=== PATIENT | female | born 1980 | race Caucasian/White ===

== ENCOUNTER 2020-07-17 15:42 | Emergency (ER) | payer OTHER, SELFPAY ==
--- NOTE | ~2020-07-17 | CT_ITS ---
EXAMINATION: CT abdomen pelvis w con EXAM DATE: 07/17/2020 18:19 INDICATION: Abdominal pain, right lower quadrant pain. TECHNIQUE: Spiral CT of the abdomen and pelvis was performed following intravenous injection of 100 m L Omnipaque 350. Axial, coronal and sagittal images were reviewed. The dose-length product (DLP) fo r this examination was 211.66 mGy-cm. The exposure was tailored according to patient size (auto mA e xposure control), and iterative reconstruction (ASIR) was used as additional dose reduction technique . Comparison is made to prior examination from 11/04/2017 . FINDINGS: Again there is right liver lobe lesion, suspect faint peripheral nodular enhancement consis tent with hemangioma. This measures about 2 cm. The liver, spleen, adrenal glands and pancreas are o therwise unremarkable. Gallbladder is unremarkable. No biliary obstruction. Portal and splenic vei ns are patent. Kidneys enhance symmetrically. There is no hydronephrosis. The uterus and ovaries are unremarkable, no adnexal mass. The bladder is unremarkable. There is no retroperitoneal or pelv ic lymphadenopathy. Possible identification of an unremarkable appendix. No pericecal inflammation. There is mild sigmoid colonic diverticulosis. There is no adjacent inflammatory change to suggest diverticulitis. The sto mach and small bowel are unremarkable. There is expected amount of colonic stool. No free intraper itoneal gas. The heart is normal in size. There are no pericardial or pleural effusions. The lung bases are unremarkable. The bones are unremarkable. IMPRESSION: 1. No acute intra-abdominal findings. 2. Small liver lesion probably hemangioma unchanged. 3. Mild sigmoid diverticulosis. Reviewed, dictated and finalized at location A.
[2020-07-17 15:59] VITALS: BP 129/83; PULSE 77; RESP 18; TEMP 36.6; O2SAT 98
[2020-07-17 16:03] LABS: Basophils Percent Auto 0.6 % (0.2-1.2); Eosinophils Absolute Auto 0.2 K/mm3 (0-0.3); Eosinophils Percent Auto 2.4 % (0-4.4); Hematocrit 36.2 % (37.0-47.0); Hemoglobin 12.3 g/dL (12.0-15.0); Immature Granulocyte Absolute 0.02 K/mm3 (0.00-0.031); Immature Granulocyte Percent A 0.3 % (0-0.5); Lymphocytes Absolute Auto 2.36 K/mm3 (0.9-3.2); Lymphocytes Percent Auto 33.7 % (18.3-44.2); Mean Corpuscular Hemoglobin 31.4 pg (26-34); Mean Corpuscular Volume 92.3 fl (80-100); Mean Platelet Volume 8.7 fl (7.4-10.4); Monocytes Absolute Auto 0.7 K/mm3 (0.1-0.6); Monocytes Percent Auto 9.4 % (2.6-8.5); Neutrophils Absolute Auto 3.8 K/mm3 (1.3-6.7); Neutrophils Percent Auto 53.6 % (45.5-73.1); Platelet Count Result 264 k/mm3 (150-375); Red Blood Count 3.92 M/mm3 (4.2-5.4); Red Cell Distribution Width 11.7 % (11.5-14.5)
[2020-07-17 16:07] LABS: Add Urine Microscopic? YES; Appearance Urine Clear (Clear); Bacteria Urine Trace /hpf; Bilirubin Urine Negative (Negative); Blood Urine Negative (Negative); Color Urine Yellow (Yellow); Glucose Urine UA Negative (Negative); Ketones Urine Negative (Negative); Leukocyte Esterase Ur Negative LEU/UL (Negative); Mucus Urine Rare /lpf; Nitrate Urine Negative (Negative); Protein Urine Negative (Negative); Specific Grav Ur 1.021 (1.001-1.035); Squamous Epithelial Cell Urine Rare /hpf (Few); Urobilinogen Urine Negative mg/dL (<2.0); WBC Urine 0-3 /hpf
[2020-07-17 16:15] LABS: Alanine Aminotransferase 15 U/L (4-35); Albumin Level 4.5 g/dL (3.5-5.1); Alkaline Phosphatase 41 U/L (38-126); Anion Gap 7 mmol/L (8-16); Aspartate Amino Transferase 25 U/L (14-36); Bilirubin,Total 0.6 mg/dL (0.2-1.3); Blood Urea Nitrogen 18 mg/dL (7-17); Calcium 9.1 mg/dL (8.4-10.2); Carbon Dioxide 27 mmol/L (22-30); Chloride 104 mmol/L (98-107); Estimated CRCL calculation 95 ml/min; Estimated Glomerular Filt Rate > 60; Glucose 90 mg/dL (65-105); Lipase 133 U/L (23-300); Potassium 3.9 mmol/L (3.4-5.0); Sodium 138 mmol/L (137-145)
[2020-07-17 17:41] VITALS: BP 121/85; PULSE 78; RESP 18; O2SAT 99
--- NOTE | 2020-07-17 18:02 | ED.GENADULT ---
HPI - General Adult General Chief complaint: Abdominal Pain Stated complaint: abd pain Time Seen by Provider: 07/17/20 15:57 Source: patient Mode of arrival: ambulatory Limitations: no limitations History of Present Illness HPI narrative: Patient presents for evaluation of abdominal pain for the last week and a half. States that pain was initially intermittent but is now fairly constant. It has been variable in location. She describes the pain is a dull cramping sensation with associated burning. At maximum pain has been 8 out of 10 in severity. Currently she states her pain is 5 out of 10 in severity. She had some mild nausea without vomiting. No fever or chills. States she has a history of regular menstruation. LMP started 7 days ago and ended 4 days ago. She denies any vaginal bleeding or discharge. She saw her OBGYN who ordered transvaginal ultrasound. She states this showed interval improvement in left sided ovarian cyst. She had some cysts present in her uterus. She states frequency with which she is having bowel movements is unchanged, with one bowel movement every 24 hrs in the morning still present. However, she indicates her stool has been softer than normal. She reports increased stress related to her 15 yr old son recently taken to rehab for substance abuse. Pt has 1-2 glasses of wine in the evenings, five times per week. No illicit drug use. She does not smoke. No personal or family hx of IBS or IBD. She is sexually active with one male partner, not on contraception. G5, P3, she does not believe she is . Related Data Home Medications Medication Instructions Recorded Confirmed No Home Medications 07/17/20 07/17/20 Allergies Allergy/AdvReac Type Severity Reaction Status Date / Time butorphanol Allergy Mild Nausea and Unverified 07/17/20 16:02 Vomiting Review of Systems Review of Systems: Narrative: CONSTITUTIONAL: Denies fever, chills, or sweats. EYES: Denies visual changes, redness, or discharge. ENT: Denies rhinorrhea, congestion, sore throat, or otalgia. CARDIOVASCULAR: Denies chest pain, palpitations, or edema. RESPIRATORY: Denies cough or dyspnea. GASTROINTESTINAL: Reports abdominal pain and nausea. Denies vomiting and diarrhea. GENITOURINARY: Denies dysuria or hematuria. SKIN: Denies rash or itching. MUSCULOSKELETAL: Denies back pain, joint pain, or myalgia. NEUROLOGIC: Denies headache, numbness, dizziness, or weakness. PSYCHIATRIC: Denies anxiety or depression. [facility] Past Medical History Medical History (Updated 07/17/20 @ 19:37 by AKBAR WheatP, ) Anxiety Surgical History Surgical History No pertinent past surgical history Family History Family History Mother Breast cancer Social History Social History Smoking status: Never smoker Alcohol intake: current Drinks per week: 8 Substance use: never Living arrangements: with family Gender identity (if verbalized by the patient): Female Sexual Orientation (if Verbalized by the Patient): Straight or Heterosexual Spiritual care concerns: No Exam Narrative: Exam Narrative: GENERAL: Well-appearing, well-nourished, and in no acute distress. HEAD: Normocephalic, atraumatic. EYES: PERRLA and EOMI. ENT: Nares clear, no rhinorrhea or epistaxis. Mucous membranes moist. Oropharynx without tonsillar hypertrophy exudate or other lesions. Bilateral TMs pearly sanchez nonbulging NECK: Supple. No adenopathy or masses. No carotid bruits or JVD CHEST: Clear to auscultation. No respiratory distress. No wheezes rales or rhonchi HEART: Regular rate and rhythm. No murmur heard. Normal peripheral pulses. ABDOMEN: Soft, nondistended, normal active bowel sounds. Tenderness noted in RUQ, RLQ, epigastric and suprapubic regions SKIN: Wa
[2020-07-17 19:14] VITALS: BP 127/80; O2SAT 98
[2020-07-17 19:15] VITALS: BP 116/81; O2SAT 98
[2020-07-17 19:16] VITALS: O2SAT 97
[2020-07-17 19:30] VITALS: O2SAT 98
== END 2020-07-17 20:24 | disposition home or self-care (01) ==
PROVIDERS: Emergency Medicine; Emergency Provider Nurse Practitioner; PCP Family Medicine
DX: K57.90 Diverticulosis of intestine, part unspecified, without perforation or abscess without bleeding (principal); K76.9 Liver disease, unspecified; F43.9 Reaction to severe stress, unspecified; R10.84 Generalized abdominal pain
CPT/HCPCS: 36415; 74177; 80053; 81001; 81025; 83690; 85025; 99284; Q9967

== ENCOUNTER → 2020-10-02 00:20 | Outpatient (CLI) | payer OTHER, SELFPAY ==
[2020-10-02 17:56] LABS: SARS-CoV-2 RNA PCR Negative
== END ==
PROVIDERS: PCP Family Medicine; Visit Provider Obstetrics & Gynecology
DX: Z01.812 Encounter for preprocedural laboratory examination (principal); Z20.822 Contact with and (suspected) exposure to COVID-19
CPT/HCPCS: C9803; U0003; U0005

== ENCOUNTER 2020-10-05 01:54 | Day surgery (SDC) | payer OTHER, SELFPAY ==
[2020-09-22 11:33] VITALS: BMI 20.7
[2020-10-05 07:05] VITALS: BP 104/74; PULSE 70; RESP 18; TEMP 36.1; O2SAT 100
--- NOTE | 2020-10-05 07:56 | P.PNAN_ITS ---
Anes - Initial Pre Proc Eval Procedure: Operation Date: 10/05/20 09:00 Proposed Procedures p Hysteroscopy Dilation and Curettage - Betina Mattson MD Date/Time: 10/05/20 07:56 Surgeon: Betina Mattson MD Pre Op Diagnosis: lesion of endometrium Patient Data Age: 40 Gender: F Height: 1.65 m Weight: 56.7 kg Allergies Allergy/AdvReac Type Severity Reaction Status Date / Time butorphanol Allergy Mild Nausea and Unverified 09/22/20 11:31 Vomiting Home Medications Medication Instructions Recorded Confirmed Type multivitamin 1 tablet PO DAILY 09/22/20 09/22/20 History valacyclovir 2,000 mg PO BID 09/22/20 09/22/20 History Patient hx anesthesia problems: none Family hx anesthesia problems: none [facility] Past Medical History Medical History (Updated 10/04/20 @ 09:38 by Derick Ramos DO) Anxiety Asthma exercise induced Surgical History Surgical History (Updated 10/04/20 @ 09:38 by Derick Ramos DO) History of breast augmentation Family History Family History Mother Breast cancer Social History Social History (Updated 10/05/20 @ 07:56 by Derick Ramos DO) Smoking packs per day: 0.5 Smoking cigarettes per day: 10.0 Years smoked: 10 Smoking pack-years: 5.00 Smoking status: Former smoker Smoking end date: 04/23/06 Alcohol intake: current Alcohol use details: 2 drinks/day Substance use: never Substance use type: does not use Living arrangements: with family Additional living arrangements comments: CHILDREN Gender identity (if verbalized by the patient): Female Spiritual care concerns: No Anes - Eval Final PreProcedure Day of Procedure 10/05/20 07:56 Patient weight: normal Heart: regular rate and rhythm Lungs: clear to auscultation and normal air movement Airway: Mallampati scale class II Neurological: alert and oriented Last oral intake: >/= 8 hours ASA classification: III Emergent: no Anesthetic plan: proceed Anesthesia type and monitoring: general GIVS and standard monitoring Informed Consent: The patient's anesthetic plan and its attendant risks and benefits were discussed with the patient/family/POA. Questions were solicited and answers provided to the satisfaction of the patient/family/POA.
--- NOTE | 2020-10-05 08:08 | WPDHPUPDATE1 ---
History and Physical Update Update Date/Time: 10/05/20 08:08 History and Physical has been reviewed, including an updated exam of the patient. There are NO changes in the patient's condition. Risks, benefits, and alternatives have been discussed and questions answered. Patient agrees to proceed with procedure.
[2020-10-05] MEDS: LACTATED RINGERS 1,000 ML 30 ML IV CONT (08:50)
[2020-10-05] MEDS: ACETAMINOPHEN 500 MG TABLET 1000 MG PO (08:56)
[2020-10-05 10:19] VITALS: BP 110/86; PULSE 73; RESP 16; O2SAT 100
--- NOTE | 2020-10-05 10:32 | W.PM.PROC2 ---
Procedure Note - Detailed Date of Procedure 10/05/20 Pre-op Diagnosis lesion of endometrium Post-op Diagnosis same Procedure Performed Hysteroscopy D&C with polypectomy Surgeon Betina Mattson MD Anesthesia MAC Indications Endometrial lesion Findings Redundant endometrium with polypoid tissue projecting from the posterior uterine wall distally. Normal vulva, vagina cervix. Description of Procedure The patient was taken the operating room. She was prepped and draped in dorsal lithotomy position. Speculum was placed in vagina. Cervix grasped with a tenaculum. The cervix was dilated to about 1 cm. Hysteroscope was inserted and the above findings were noted. A D&C was performed using a medium-size curette and gently curettage being all the surfaces within the uterus. The hysteroscope was reinserted. Scissors were used to resect the polypoid tissue on the posterior uterine wall distally. Samples were collected. Samples were sent to the pathology department. The procedure was terminated. The speculum and tenaculum were withdrawn. The patient tolerated the procedure well. She is taking cover room stable condition. Estimated Blood Loss 15 Drains No Packing No Pathology yes Complications No immediate complications Condition stable Disposition same day
[2020-10-05 10:45] VITALS: BP 115/70; PULSE 57; RESP 16; O2SAT 100
[2020-10-05 11:05] VITALS: BP 115/70; PULSE 54; RESP 16
[2020-10-05 11:15] VITALS: BP 104/68; PULSE 60; RESP 16
== END 2020-10-05 11:25 | disposition home or self-care (01) ==
PROVIDERS: PCP Family Medicine; Visit Provider Obstetrics & Gynecology
PROC: 0U5B8ZZ Destruction of Endometrium, Via Natural or Artificial Opening Endoscopic (ICD-10-PCS; CPT 58563; principal; 2020-10-05 09:00)
DX: N84.0 Polyp of corpus uteri (principal); Z87.891 Personal history of nicotine dependence
CPT/HCPCS: 58558; 88305; A9270; C9803; J2250; J2704; J3010; J7030; J7120; U0003; U0005

== ENCOUNTER 2022-12-23 08:59 | Emergency (ER) | payer OTHER, SELFPAY ==
--- NOTE | 2022-12-23 09:10 | ED.URI ---
HPI - URI/Sore Throat General Chief Complaint: Upper Respiratory Infection Stated Complaint: SORE THROAT Time Seen by Provider: 12/23/22 09:36 Source: patient and RN notes reviewed Mode of arrival: ambulatory Limitations: no limitations History of Present Illness HPI Narrative: 42-year-old female presents with concern for sore throat that started yesterday. She reports she has some mild nasal congestion. She was not sure she had allergies or was contagious. She reports she took some zinc. She denies fever, aches, chills, sweats, headache, cough. She denies known sick contacts MD elicited complaint: sore throat Related Data Home Medications Medication Instructions Recorded Confirmed multivitamin 1 tablet PO DAILY 09/22/20 12/23/22 alprazolam 0.25 mg tablet 0.25 mg PO DIRECTED 12/23/22 12/23/22 Allergies Allergy/AdvReac Type Severity Reaction Status Date / Time butorphanol AdvReac Mild Nausea and Unverified 12/23/22 09:23 Vomiting Review of Systems Review of Systems: CONSTITUTIONAL: Denies malaise, chills, sweats, or fever. EYES: Denies visual changes, redness, or discharge. ENT: Reports rhinorrhea, congestion, sore throat. Denies sinus pain, otalgia CARDIOVASCULAR: Denies chest pain, palpitations, or edema. RESPIRATORY: Denies cough. Denies dyspnea. GASTROINTESTINAL: Denies abdominal pain, nausea, vomiting, diarrhea SKIN: Denies rash or itching. MUSCULOSKELETAL: Denies myalgia. NEUROLOGIC: Denies headache. All systems reviewed & are unremarkable except as noted in HPI and below PMFSH Past Medical History Medical History (Updated 12/23/22 @ 09:44 by Vandana Mace NP) Anxiety Asthma exercise induced Surgical History Surgical History (Updated 10/04/20 @ 09:38 by Derick Ramos DO) History of breast augmentation Family History Family History Mother Breast cancer Social History Social History (Updated 10/05/20 @ 07:56 by Derick Ramos DO) Smoking packs per day: 0.5 Smoking cigarettes per day: 10.0 Years smoked: 10 Smoking pack-years: 5.00 Smoking status: Former smoker Smoking end date: 04/23/06 Alcohol intake: current Alcohol use details: 2 drinks/day Substance use: never Substance use type: does not use Living arrangements: with family Additional living arrangements comments: CHILDREN Gender identity (if verbalized by the patient): Female Sexual Orientation (if Verbalized by the Patient): Straight or Heterosexual Spiritual care concerns: No Comments At time of signature, agree with nursing past medical, surgical, social and family history. There is no relevant family history pertinent to the presenting complaint Exam Narrative: GENERAL: Well-appearing, well-nourished, and in no acute distress. HEAD: Normocephalic EYES: PERRLA, conjunctivae clear ENT: Nares clear. Mucous membranes moist. TM pearly sanchez with sharp light reflex bilaterally; no tragal tenderness. Oropharynx not erythematous without lesions. Tonsils not enlarged and without exudate, no drooling, no hoarseness, no trismus, uvula midline. NECK: Supple. No lymphadenopathy CHEST: Clear to auscultation, breath sounds equal. No wheezing, rhonchi, rales, or stridor. No respiratory distress, speaks in full sentences. HEART: Regular rate and rhythm. No murmur heard. SKIN: Warm, dry, no rash. NEURO: Alert and oriented x3. PSYCH: Normal mood and affect Course Course Emergency Course: Patient is aware of diagnosis, understands and agrees to treatment plan. Anticipatory guidance given. Patient agrees to follow-up as directed and is aware of reasons to seek care at the emergency department. Portions of this record may have been created with voice recognition software Level of Care: Express Care Visit Vital Signs Vital signs: Reviewed. MDM - URI/Sore Throat MDM Narrative Medical decision making narrati
[2022-12-23 09:13] VITALS: BP 117/84; PULSE 78; RESP 16; TEMP 36.3; O2SAT 100
== END 2022-12-23 09:46 | disposition home or self-care (01) ==
PROVIDERS: Emergency Provider Nurse Practitioner; PCP Family Medicine
DX: J01.90 Acute sinusitis, unspecified (principal); Z87.891 Personal history of nicotine dependence; F41.9 Anxiety disorder, unspecified; J45.990 Exercise induced bronchospasm
CPT/HCPCS: 87081; 87880; 99213; G0463

== ENCOUNTER 2024-04-06 12:57 | Emergency (ER) | payer OTHER, SELFPAY ==
[2024-04-06 13:40] VITALS: BP 126/86; PULSE 76; RESP 16; TEMP 36.6; O2SAT 100
--- NOTE | 2024-04-06 14:16 | ED.URI ---
HPI - URI/Sore Throat General Chief Complaint: Upper Respiratory Infection Stated Complaint: SINUS PRESSURE/HEAD/EARS Time Seen by Provider: 04/06/24 14:04 Source: patient and RN notes reviewed Mode of arrival: ambulatory Limitations: no limitations History of Present Illness HPI Narrative: Patient presents today with a 3 day history of nasal congestion, sinus pressure, bilateral ear pressure, and mild dry cough. Denies fever or shortness of breath. She has tried ibuprofen and Tylenol cold and flu without much relief. She is currently living in a hotel while her home is being built and states the areas very dry Related Data Home Medications ?Medication ?Instructions ?Recorded ?Confirmed ?Last Taken ?Type multivitamin 1 tablet PO DAILY 09/22/20 12/23/22 10/01/20 History alprazolam 0.25 mg tablet 0.25 mg PO DIRECTED 12/23/22 12/23/22 Unknown History Allergies Allergy/AdvReac Type Severity Reaction Status Date / Time butorphanol AdvReac Mild Nausea and Verified 04/06/24 13:40 Vomiting Review of Systems Review of Systems: CONSTITUTIONAL: Denies body aches, fever, chills, or sweats. EYES: Denies visual changes, redness, or discharge. ENT: Denies rhinorrhea, sore throat, or otalgia.+ nasal congestion, sinus pressure, bilateral ear pressure CARDIOVASCULAR: Denies chest pain, palpitations, or edema. RESPIRATORY: Denies dyspnea.+ dry cough GASTROINTESTINAL: Denies abdominal pain, nausea, vomiting, or diarrhea. GENITOURINARY: Denies dysuria or hematuria. SKIN: Denies rash, itching, or wounds. MUSCULOSKELETAL: Denies back pain, joint pain, or myalgia. NEUROLOGIC: Denies headache, numbness, tingling, or weakness. PSYCH: Denies depression or anxiety. [facility] Past Medical History Medical History Asthma exercise induced Anxiety Surgical History Surgical History History of breast augmentation Family History Family History Mother Breast cancer Social History Social History Smoking packs per day: 0.5 Smoking cigarettes per day: 10.0 Years smoked: 10 Smoking pack-years: 5.00 Smoking status: Former smoker Smoking end date: 04/23/06 Alcohol intake: current Alcohol use details: 2 drinks/day Substance use: never Substance use type: does not use Living arrangements: with family Additional living arrangements comments: CHILDREN Gender identity (if verbalized by the patient): Female Sexual Orientation (if Verbalized by the Patient): Straight or Heterosexual Spiritual care concerns: No Comments At time of signature, I have reviewed and agree with nursing past medical, surgical, social and family history unless otherwise noted. Please see nursing chart for further information. There is no relevant family history pertinent to the presenting complaint Exam Narrative: GENERAL: Well-appearing, well-nourished, and in no acute distress. HEAD: Normocephalic, atraumatic. EYES: EOMI. No redness or drainage. Conjunctivae normal. ENT: Mucous membranes pink and moist. Nares mildly congested. Bilateral nasal turbinates are slightly edematous. No rhinorrhea. TMs normal bilaterally with mild left-sided middle ear effusion without evidence of bacterial infection. Throat normal. Uvula midline. Bilateral maxillary sinus tenderness. NECK: Normal AROM. Supple. No lymphadenopathy. CHEST: No respiratory distress. Clear to auscultation. HEART: Regular rate and rhythm. No murmur appreciated. EXTREMITIES: Normal range of motion. No edema. SKIN: Warm, dry, no rash. Capillary refill normal. Normal skin turgor. NEURO: No focal deficits. Alert and oriented x3. Gait steady. PSYCH: Normal affect. No signs of depression or anxiety. Course Course Level of Care: Express Care Visit Vital Signs Vital signs: Vital Signs Temperature 98 F 04/06/24 13:40 Pulse Rate 76 04/06/24 13:40 Respiratory Rate 16 04/06/24 13:40 Blood Pressure 126/86 04/06/24 13:40 Pulse Oximetry 100 04/06/24 13:40 Temperature 98 F 04/06/24 13:40 Pulse Rate 76 04/06/24 13:40 Respiratory Rate 16 04/06/24 13:40 Blood Pressure 126/86 04/06/24 13:40 Pulse Oximetry 100 04/06/24 13:40 Reviewed MDM - URI/Sore Throat MDM Narrative Medical decision making narrative: Symptoms likely viral in etiology. Discussed [id number] medication use and duration of illness. Will treat patient's sinus pressure and dry cough with a Medrol Dosepak. Recommend switching to Sudafed and starting Flonase as well.. Anticipatory guidance given. Differential Diagnosis Differential diagnosis: Likely upper respiratory infection, otitis media, sinusitis, viral infection and bronchitis Critical Care Time Critical Care Time Critical Care Time: No Discharge Plan Discharge Clinical Impression: Upper respiratory infection Qualifiers: URI type: unspecified URI Qualified Code(s): J06.9 - Acute upper respiratory infection, unspecified Patient Disposition: Home, Self-Care Condition: Stable Instructions: Upper Respiratory Infection (DC) Additional Instructions: Your symptoms are likely due to a viral illness, which is not treated with antibiotics. Virus symptoms can last for up to 7-10days. Take Tylenol or ibuprofen for pain or fever. Consider starting a steroid nasal spray such as Flonase and changing to a decongestant such as Sudafed (pseudoephedrine). Take the Medrol Dosepak as directed. Rest and stay hydrated. Follow up with your PCP in 7 days if symptoms are not improving. Go to the ER immediately if you develop shortness of breath, difficulty swallowing, or any other concerning symptoms. Your blood pressure was elevated above 120/80 today at Urgent Care. This puts you above the threshold for follow up. Please schedule a followup visit with your personal physician as soon as possible, for further evaluation and treatment. Even blood pressure exceeding 120/80 may indicate pre-hypertension. Patient Language: Mongolian Prescriptions: New methylprednisolone [Medrol (Des)] 4 mg tablets,dose pack See Rx Instructions .ROUTE .COMPLEX Qty: 21 0RF Rx Instructions: orally per package directions No Action alprazolam 0.25 mg tablet 0.25 mg PO DIRECTED multivitamin Tablet 1 tablet PO DAILY Follow-up/Referrals: UNKNOWN,DOCTOR [Primary Care Provider] - Time of Disposition: 14:20
== END 2024-04-06 14:21 | disposition home or self-care (01) ==
PROVIDERS: Emergency Provider Nurse Practitioner
DX: J06.9 Acute upper respiratory infection, unspecified (principal); Z87.891 Personal history of nicotine dependence; J45.990 Exercise induced bronchospasm; F41.9 Anxiety disorder, unspecified
CPT/HCPCS: 99213; G0463

== ENCOUNTER 2024-08-19 00:58 | Day surgery (SDC) | payer OTHER, SELFPAY ==
[2024-08-08 14:24] VITALS: BMI 21.2
--- NOTE | 2024-08-08 14:38 | PC.NURSE ---
Report to the Outpatient Waiting Room, entrance under the green pavilion located off [facility], at time ___07____ on date ___08/19/24____. Planned Procedure Time: ____09____.? Time changes happen often and if your time is changed the preop area will call you the afternoon before. - You and your visitor will be asked to self-screen and do not enter if you have any COVID symptoms. Please call surgeon if you need to reschedule. - A mask is optional within the hospital at this time. Patients may have clear liquids (water, carbonated beverages, clear teas, apple juice) until 3 hours prior to surgery with a maximum of 20 ounces. - No food from midnight until time of surgery and no smoking, or chewing tobacco (or any form of nicotine). No chewing gum, candy or mints. Take only the following medications with a SIP of water on the morning of surgery: ____clonazepam if needed___ DO NOT STOP ANY OF YOUR OTHER PRESCRIPTION MEDICATIONS PRIOR TO SURGERY EXCEPT THE FOLLOWING Hold all vitamins and supplements for 3 days per anesthesiologist. Please no make-up, nail taiwanese, hairspray, perfume, deodorant, or body powder the day of surgery.? No jewelry (including any body piercings) or valuables the day of surgery, leave them at home.? Please take a shower or bath the night before, or the morning of, surgery with an antibacterial soap.? Wear comfortable, loose fitting clothing.? - Jewelry must be removed prior to entering the operating room.? Rings and piercings that are not removed may be cut off. - The hospital will not accept responsibility for valuables.? - Please leave all valuables, including medications, at home the day of surgery. If you are going home after surgery, a licensed certified driver examiner must drive you home.? - NO public transportation without another adult if you receive anesthesia. - We recommend that an adult stay with you for 24 hours following discharge. - We also recommend that you do not drive, make important decision, drink alcoholic beverages, or take any drugs that were not prescribed by your health care provider for at least 24 hours after your discharge time. Follow any additional instructions given to you from your surgeon. Telephone instructions given to ____Holly and asked if any additional questions and then verbalized understanding. Patient advised to call surgeon office or pre surgery nurse liaison [phone] if any additional questions.
--- OUTSIDE RECORDS SUMMARY | 2024-08-19 01:00 | XMS_ITS | Clinical Summary ---
Author Organization [facility] Address [address] [place] [address] Phone Care Team Providers Care Datastage Architect Name Role Phone Joe Manning MD Primary Care Provider Medications No known medications Active Problems No known active problems Immunizations Immunization Administration Dates Next Due ([employer])(12 YR UP) COVID-19 VACCINE - EMERGENCY USE AUTHORIZATION, MRNA, [id number](PF) 30 MCG/0.3 ML IM SUSP 06/10/2020,05/21/2020 Social History Tobacco Use Types Packs/Day Years Used Date Smoking Tobacco: Unknown Tobacco Cessation:Counseling Given: Not Answered Comments Unknown Sex and Gender Information Value Date Recorded Sex Assigned at Not on file Legal Sex Female 2:10 PM CDT Gender Identity Not on file Sexual Orientation Not on file Last Filed Vital Signs Vital Sign Reading Time Taken Comments Blood Pressure 135/84 09/01/2022 1:33 PM CDT Pulse 76 09/01/2022 1:33 PM CDT Temperature 36.3 C (97.3 F) 09/01/2022 1:33 PM CDT Respiratory Rate 17 09/01/2022 1:33 PM CDT Oxygen Saturation 99% 09/01/2022 1:33 PM CDT Inhaled Oxygen Concentration - - Weight 58.5 kg (128 lb 15.5 oz) 09/01/2022 1:33 PM CDT Height 165.1 cm (5' 5 ) 09/01/2022 1:33 PM CDT Body Mass Index 21.46 09/01/2022 1:33 PM CDT Plan of Treatment Health Maintenance Due Date Last Done Comments HEPATITIS B VACCINES (1 of 3 - 19+ 3-dose series) 1999 HPV/Cotest (21-29) 2001 HPV/Cotest (30-65) 2010 BREAST CANCER SCREENING 2020 DTAP/TDAP/TD VACCINES (2 - Tdap) 03/27/2022 03/27/2012 INFLUENZA VACCINE (#1) 2023 02/19/2020 COVID-19 Vaccine (3 - season) 2023 06/10/2020, 05/21/2020 CERVICAL CANCER SCREENING 08/25/2024 PAP SMEAR 08/25/2024 08/25/2021 HPV VACCINES Aged Out No longer eligi ble based on patient's age to complete this topic Insurance [facility] [id number] Member Subscriber Plan / Payer (Ef fective 2020-Present) Name:Kia Moya Relation to Subscriber:Not on file Name:KIA MOYA Date of :1980 (Home) Address: [address] [place] [address] [address] [place] [address] Payer ID:[id number] (NAIC) Type:[facility] Address: [address] [place] [address] [facility] CHOICE PLUS Care Teams Datastage Architect Relationship Specialty Start Date End Date Joe Manning MD PCP - General Family Practice 04/24/19
--- OUTSIDE RECORDS SUMMARY | 2024-08-19 01:00 | XMS_ITS | Clinical Summary ---
Author Organization [facility] Campaign [facility] Address [address] [place] [address] Care Team Providers Care Stripper Latex Name Role Phone Katharine Matos NP Primary Care Provider [phone] Allergies Active Allergy Reactions Criticality Noted Date Comments Lanolin Alcohols Redness Low 06/18/2019 Medications valACYclovir (VALTREX) 500 mg tablet Take 2 tablets Twice daily at onset of outbreak 30 tablet 3 08/31/2023 Active clonazePAM (KlonoPIN) 0.5 mg tablet Take 1 tablet (0.5 mg total) by mouth 2 (two) times a day as needed for anxiety 60 tablet 03/04/2024 Active Active Problems Problem Noted Date Diagnosed Date Varicosities of pelvis 08/31/2023 Panic attacks 08/31/2023 Assessment & Plan (03/04/2024 9:42 AM VIAL GAUGER): Patient's son about 6 months ago, she has been overall been stable with her panic attacks but does not have rescue medication. She never picked up Lorazepam from previous provider. Will rx Clonazepam for rescue, discussed sparing use and daily medication. Pt declines daily medication at this time. Encouraged counseling. Assessment & Plan (08/31/2023 11:32 AM CDT): Patient does not wish to be on daily medication. Uses exercises and meditation. She believes anxiety is high right now due to work and family situations. I told her I do not usually prescribe xanax as a general rule. Discussed using lorazepam instead and she was agreeable. If she is not finding relief with prn use of lorazepam I told her she could call and I would reconsider changing to alprazolam. Abnormal finding on mammography 10/17/2022 Assessment & Plan (08/31/2023 11:35 AM CDT): Due in October. Ordered Multiple benign melanocytic nevi 06/20/2016 Vascular disorder of kidney 08/30/2015 Uses intrauterine device for control 04/28 Resolved Problems Problem Noted Date Diagnosed Date Resolved Date Facial aging 04/25/2019 08/31/2023 Skin neoplasm 06/20/2016 08/31/2023 Immunizations Immunization Administration Dates Next Due DTaP 03/27/2012 Hep A, Adult 09/26/2006,10/26/1999 Influenza, Quadrivalent, Spl it, Preservative Free, Intramuscular 02/19/2020 Influenza, Unspecified 04/23/2023(Deferr ed: Patient Refused),04/23/2022(Deferred: Patient Refused) Surgical History Surgery Date Site/Laterality Comments 2ND ORD VENOUS BILATERAL 09/02/2015 Bilateral 2ND ORD VENOUS BILATERAL 09/02/2015 Bilateral Medical History Medical History Date Comments Anxiety Shingles face and back Family History Medical History Relation Name Comments Hypertension Father Breast cancer Mother Relation Name Status Comments Father Alive Mother Social History Tobacco Use Types Packs/Day Years Used Date Smoking Tobacco: Every Day Cigarettes Smokeless Tobacco: Never Tobacco Cessation:Ready to Q uit: Not Asked; Counseling Given: Not Answered PHQ-2 Answer Date Recorded PHQ-2 Total Score (If total score is 3 or more points, staff should administer the PHQ-9) 2 03/04/2024 Comments Unknown Sex and Gender Information Value Date Recorded Sex Assigned at Not on file Legal Sex Female 7:05 AM VIAL GAUGER Gender Identity Not on file Sexual Orientation Not on file Obstetrics History Last Filed Vital Signs Vital Sign Reading Time Taken Comments Blood Pressure 110/70 03/04/2024 8:27 AM VIAL GAUGER Pulse 84 03/04/2024 8:27 AM VIAL GAUGER Temperature 36.8 C (98.2 F) 03/04/2024 8:27 AM VIAL GAUGER Respiratory Rate - - Oxygen Saturation 98% 03/04/2024 8:27 AM VIAL GAUGER Inhaled Oxygen Concentration - - Weight 59.9 kg (132 lb) 03/04/2024 8:27 AM VIAL GAUGER Height 165.1 cm (5' 5 ) 03/04/2024 8:27 AM VIAL GAUGER Body Mass Index 21.97 03/04/2024 8:27 AM VIAL GAUGER Plan of Treatment Health Maintenance Due Date Last Done Comments Cervical Cancer Screening 1980 Hepatitis C Screening 1980 Varicella Vaccines (1 of 2 - 13+ 2-dose series) 1993 Hepatitis B Screening 1998 Regular Well Visit/Exam 18-64 1998 Pneumococcal vaccine <65 (1 of 2 - PCV) 1999 DTaP/Tdap/Td Vaccine (2 - Tdap) 03/27/2022 03/27/2012 Covid-19 Vaccine (3 - season) 2023 06/10/2020, 05/21/2020 Influenza Vaccine (#1) 2023 02/19/2020 Breast Cancer Screening-Mammogram 12/18/2024 12/19/2023, 10/13/2022, 10/13/2022, Additional history exists Depression Screening 03/04/2025 03/04/2024, 08/31/19 24 HPV Vaccines Aged Out No longer eligi ble based on patient's age to complete this topic Procedures Procedure Name Priority Date/Time Associated Diagnosis Comments DIAGNOSTIC MAMMOGRAM BILATERAL W NARESH W IMPLANTS Schedule Routine, Read Routine (OP Routine) 12/19/2023 1:15 PM CDT Abnormal finding on mammography from Last 3 Months or Most Recently Relevant to Health Maintenance Results * Diagnostic Mammogram Bilateral W Naresh W Implants (12/19/2023 1:15 PM CDT) Anatomical Region Laterality Modality Breast Bilateral Mammography 12/19/2023 1:36 PM CDT Impressions 12/19/2023 1:36 PM CDT BI-RADS code 2-benign 1. No mammographic evidence of malignancy 2. Stable island of fibrocystic tissue and prominent ducts left breast 11:00 at 6 cm from the nipple Electronically signed by: Zoie Kenney M.D. Narrative 12/19/2023 1:36 PM CDT EXAM: Bilateral 3-D tomosynthesis diagnostic mammogram, limited left breast ultrasound HISTORY: Six-month follow-up prominent ducts in the left breast. Annual mammogram COMPARISON: Left breast ultrasound 06/19/2023, 11/13/2022, prior mammograms FINDINGS: Bilateral full 2-D implant views and bilateral 3-D implant displacement views were performed. Limited left breast ultrasound was performed. The breasts are extremely dense, which lowers the sensitivity of mammography. Bilateral subglandular saline implants are intact. Nodular densities in the medial left breast are stable. Right breast is negative and stable. Sonography of the left breast 11:00 at 6 cm from the nipple shows a stable island of fibrocystic tissue and prominent ducts. There is no new mass or sonographic evidence of malignancy. Given the more than one year stability of the benign finding no further evaluation is required at this time. Annual screening mammography is recommended. These results were conveyed to the patient at the time of the study. Katt Chan NP IMG MAMMO PROCEDURES Final Re sult from Last 3 Months or Most Recently Relevant to Health Maintenance Insurance [address] [place] [id number] [facility] [id number] [place] [address] CHOICE PLUS [facility] CHOICE PLUS [facility] [id number] Care Teams Stripper Latex Relationship Specialty Start Date End Date Katharine Matos NP [address] [address] PCP - General Family Medicine 03/04/24
--- OUTSIDE RECORDS SUMMARY | 2024-08-19 01:00 | XMS_ITS | Referral Summary ---
Author Organization [facility] Address [address] [place] [address] Care Team Providers Care Locomotive Crane Engineer Name Role Phone Katharine Matos NP Primary Care Provider [phone] Allergies Active Allergy Reactions Criticality Noted Date [...] 08/31/2023 Assessment & Plan (03/04/2024 9:42 AM BEHAVIOUR SUPPORT TEACHER): Patient's son about 6 months ago, she [...] Unspecified 04/23/2023(Deferr ed: Patient Refused),04/23/2022(Deferred: Patient Refused) Social History Tobacco Use Types Packs/Day Years [...] on file Legal Sex Female 7:05 AM BEHAVIOUR SUPPORT TEACHER Gender Identity Not on file Sexual Orientation Not on file Last Filed Vital Signs Vital Sign Reading Time Taken Comments Blood Pressure 110/70 03/04/2024 8:27 AM BEHAVIOUR SUPPORT TEACHER Pulse 84 03/04/2024 8:27 AM BEHAVIOUR SUPPORT TEACHER Temperature 36.8 C (98.2 F) 03/04/2024 8:27 AM BEHAVIOUR SUPPORT TEACHER Respiratory Rate - - Oxygen Saturation 98% 03/04/2024 8:27 AM BEHAVIOUR SUPPORT TEACHER Inhaled Oxygen Concentration - - Weight 59.9 kg (132 lb) 03/04/2024 8:27 AM BEHAVIOUR SUPPORT TEACHER Height 165.1 cm (5' 5 ) 03/04/2024 8:27 AM BEHAVIOUR SUPPORT TEACHER Body Mass Index 21.97 03/04/2024 8:27 AM BEHAVIOUR SUPPORT TEACHER Plan of Treatment Not on file Procedures Procedure Name Priority Date/Time Associated Diagnosis [...] Relevant to Health Maintenance Insurance [address], [place] [id number] [employer] SIG [id number] [place] [address] [facility] [place] [address] [place] [address] [facility] Address: [address] [address] [place] [address] [place] [address] [employer] SIG [id number] Care Teams Locomotive Crane Engineer Relationship Specialty Start Date End Date Katharine Matos NP [address] [facility] [address] [place] [address] PCP - General Family Medicine 03/04/24
--- OUTSIDE RECORDS SUMMARY | 2024-08-19 01:01 | XMS_ITS | Data Portability ---
Author Organization [facility] [employer], Main Office Address [address] [place] [address] Assessment No assessment recorded. Plan of Treatment Reminders Order Date Submit Date Provider Last Modified By Organization Details Last Modified Time Details Appointments None recorded. Lab C-reactive protein, quantitativ e, serum or plasma [address] (Lab), [address] [place], [address], 3 12:13:49 ESR (erythrocyt e sedimentati on rate), blood [address] (Lab), [address] [place], [address], 3 12:13:49 rf (rheumatoid factor), serum [address] (Lab), [address] [place], [address], 3 12:13:49 KRISTEN (antinuclea r antibodies) screen, serum [address] (Lab), [address] [place], [address], 3 12:13:50 TSH, serum or plasma [address] (Lab), [address] [place], [address], 3 12:13:50 Referral None recorded. Procedures None recorded. Surgeries None recorded. Imaging None recorded. Medication Orders triamcinolo ne acetonide 0.1 % topical cream 2022 023 LIBRADO [id number], [address], [place], [place], [id number], 3 12:39:09 Medrol (Des) 4 mg tablets in a dose pack 2022 023 [email or web address] [facility] #[id number], [address], [place], [place], [id number], 4 10:09:51 Patient TargetsNo targets recorded. Patient InstructionsNo instructions recorded. Reason for Referral None Reported. Results Created Date Observation Date Name Description Value Unit Range Abnormal Flag Note LastModifiedBy Organization Detail LastModifiedTime 10/14/1910/13/2022 MAMMO , scree michael, bilat eral No observ ation record ed. [email or web address] [facility] [address], [place], [address], 10/17/2022 09:10:35 11/14/19 23 11/13/2022 MAMMO , diagn ostic , digit al, unila teral No observ ation record ed. [email or web address] [facility] [address], [place], [address], 11/13/2022 16:35:14 11/14/19 23 11/13/2022 danny GAGE, unila teral No observ ation record ed. [address], [place], [address], 11/13/2022 16:35:15 06/19/19 24 06/19/2023 , danny calderon, unila teral No observ ation record ed. [email or web address] [facility] [address], [place], [address], 06/20/2023 11:47:08 06/19/19 24 06/19/2023 MAMMO , diagn ostic , digit al, unila teral No observ ation record ed. [email or web address] [facility] [address], [place], [address], 06/20/2023 11:47:08 Result Notes None recorded. Problems Name Problem SNOMED Code Status Onset Date Resolution Date Notes Provider Name and Address Organization Details Recorded Time Varicose veins of pelvis 22462200 Active Not Available [facility] 3 09:17:34 Insomnia 413634366 Active Not Available [facility] 3 09:17:34 Anxiety disorder 607903794 Active Not Available [facility] 3 09:17:34 Pain in pelvis 94743420 Active Not Available [facility] 3 09:17:34 Lymphadenopat hy 71878641 Active Not Available [facility] 3 09:17:34 Paresthesia of hand 558544805 Active Not Available [facility] 3 09:17:34 Pelvic congestion syndrome 21892089 Active Not Available [facility] 3 09:17:34 Melanocytic nevus 406488408 Active Not Available [facility] 3 09:17:34 Herpes zoster 4034463 Active Not Available [facility] 3 09:17:34 Anxiety 89279829 Active Not Available [facility] 3 09:17:34 Pruritic rash 12890594 Active 2022 Joe Manning MD [address], [place] [address], [place], [address] , [facility] [employer] [facility] 3 12:38:22 Pain of multiple joints 43758932 Active 2022 Joe Manning MD [address], [place] [address], [place], [address] , [facility] [employer] [facility] [employer] [facility] 3 12:39:21 Persistent insomnia 541473760 Active 2022 Joe Manning MD [address], [place], [address] , [place] [employer] [facility] [employer] 22:32:08 Mammography abnormal 753947631 Active 2022 CHAR Carmen null, [facility] OTR 09:31:27 Problem Notes None recorded. Procedures Surgical History Date Name Laterality Status Provider Name and Address Organization Details Recorded Time 06/19/19 screening mammography completed Meme Foster RN [facility] [employer] [facility] [employer] 06/20/2023 11:49:51 Tonsillectomy completed Not Available [facility] 06/21/2022 09:13:18 Breast augmentation w/implt completed Not Available [facility] 06/21/2022 09:13:18 Imaging Results Imaging Date Name Status LastModified by Organiz ation Details LastModified Time 10/13/2022 MAMMO, screening, bilateral completed [email or web address] [facility] [address], [place], [address], 10/17/2022 09:10:35 11/13/2022 MAMMO, diagnostic, digital, unilateral [email or web address] [address], [place], [address], 11/13/2022 16:35:14 11/13/2022 US, breast, unilateral completed [email or web address] [facility] [address], [place], [address], 11/13/2022 16:35:15 06/19/2023 US, breast, unilateral completed [email or web address] [facility] [address], [place], [address], 06/20/2023 11:47:08 06/19/2023 MAMMO, diagnostic, digital, unilateral completed [email or web address] [facility] [address], [place], [address], 06/20/2023 11:47:08 Procedure Notes None recorded. Medical Equipment None Reported. Medications Name Sig Start Date Stop Date Status Note LastModified by Organization Details LastModified Time Prescriptio n - Renewal active Not Available Not Available Not Available amoxicillin 500 mg capsule TK ONE C PO TID 08/31 completed Not Available Not Available Not Available azelastine 0.05 % eye drops INSTILL 1 DROP INTO AFFECTED EYE(S) BY OPHTHALMI C ROUTE 2 TIMES PER DAY 12/04 completed Not Available Not Available Not Available clindamycin HCl 300 mg capsule TAKE 1 CAPSULE BY MOUTH THREE TIMES DAILY UNTIL GONE active Not Available Not Available No t Available triazolam 0.25 mg tablet TK 2 TABLETS PO 1 HOUR PRIOR TO DENTAL PROCEDURE . DO NOT DRIVE active Not Available Not Available No t Available azithromyci n 250 mg tablet 12/10 completed Not Available Not Available Not Available ibuprofen 800 mg tablet TK ONE T PO Q 6 H PRF DENTAL PAIN active Not Available Not Available No t Available fluconazole 150 mg tablet TAKE 1 TABLET BY MOUTH 1 TIME. REPEAT IN 7 DAYS NEEDED active Not Available Not Available No t Available valacyclovi r 1 gram tablet TAKE 1 TABLET BY MOUTH TWICE DAILY FOR 7 DAYS 08/02 completed Not Available Not Available Not Available hydrocodone 5 mg-acetamin ophen 325 mg tablet TAKE 1 TABLET BY MOUTH EVERY 4 HOURS NEEDED FOR PAIN active Not Available Not Available No t Available fluconazole 200 mg tablet TAKE 1 TABLET BY MOUTH EVERY OTHER DAY FOR 3 DOSES. REPEAT THIS REGIMEN IN 1 WEEK active Not Available Not Available No t Available metronidazo le 0.75 % (37.5 mg/5 gram) vaginal gel INSERT ONE APPLICATO RFUL VAGINALLY AT BEDTIME FOR 5 NIGHTS active Not Available Not Available No t Available penicillin V potassium 500 mg tablet TK ONE T PO QID TAT active Not Available Not Available No t Available acetaminoph en 300 mg-codeine 30 mg tablet 08/31 completed Not Available Not Available Not Available valacyclovi r 500 mg tablet TAKE 1 TABLET BY MOUTH EVERY DAY active Not Available Not Available No t Available ciprofloxac in 500 mg tablet Take 1 tablet every 12 hours by oral route. 12/04 completed Not Available Not Available Not Available triamcinolo ne acetonide 0.1 % topical cream APPLY THIN LAYER TOPICALLY TO THE AFFECTED AREA TWICE DAILY active Not Available Not Available No t Available amoxicillin 500 mg tablet TAKE 1 TABLET BY MOUTH THREE TIMES DAILY FOR 5 DAYS active Not Available Not Available No t Available Depo-Medrol 80 mg/mL suspension for injection inject 1 ml 12/08 completed Not Available Not Available Not Available Kenalog 40 mg/mL suspension for injection Take 1 mL every day by injection route for 1 day. 12/04 completed Not Available Not Available Not Available nystatin-tr iamcinolone 100,000 unit/gram-0 .1 % topical ointment APPLY TOPICALLY TO THE AFFECTED AREA TWICE DAILY FOR 5 DAYS active Not Available Not Available No t Available alprazolam 0.5 mg tablet TK 1 T PO BID PRN active Not Available Not Available No t Available amoxicillin 875 mg tablet TAKE 1 TABLET BY MOUTH TWICE DAILY active Not Available Not Available No t Available alprazolam 0.25 mg tablet TAKE 1 TABLET BY MOUTH EVERY DAY NEEDED active Not Available Not Available No t Available meclizine 25 mg tablet Take 1 tablet 3 times a day by oral route. 06/01 completed Not Available Not Available Not Available cephalexin 500 mg capsule TAKE 1 CAPSULE BY MOUTH THREE TIMES DAILY FOR 7 DAYS 10/06 completed Not Available Not Available Not Available oseltamivir 75 mg capsule Take 1 capsule every day by oral route for 10 days. 12/10 completed Not Available Not Available Not Available neomycin-po lymyxin-dex ameth 3.5 mg/mL-10,00 0 unit/mL-0.1 % eye drops INSTILL 1 DROP INTO AFFECTED EYE(S) BY OPHTHALMI C ROUTE EVERY 3-4 HOURS 06/01 completed Not Available Not Available Not Available clotrimazol e-betametha sone 1 %-0.05 % topical cream CLAIR EXT TO THE AFFECTED AND SURROUNDI NG AREAS BID IN THE MORNING AND IN THE BRUCE FOR 2 WKS 08/12 completed Not Available Not Available Not Available lisinopril 10 mg tablet TAKE 1 TABLET BY MOUTH EVERY DAY active Not Available Not Available No t Available hydrochloro thiazide 12.5 mg capsule TAKE 1 CAPSULE BY MOUTH EVERY DAY active Not Available Not Available No t Available montelukast 10 mg tablet TAKE 1 TABLET BY MOUTH EVERY DAY active Not Available Not Available No t Available mupirocin 2 % topical ointment APPLY A SMALL AMOUNT TO THE AFFECTED AREA BY TOPICAL ROUTE 3 TIMES PER DAY active Not Available Not Available No t Available ergocalcife rol (vitamin D2) 1,250 mcg (50,000 unit) capsule 12/10 completed Not Available Not Available Not Available methylpredn isolone 4 mg tablets in a dose pack FOLLOW PACKAGE DIRECTION S 06/19 completed Not Available Not Available Not Available hydrocortis one 2.5 % topical ointment 12/10 completed Not Available Not Available Not Available diazepam 5 mg tablet TAKE 1 TABLET BY MOUTH ONE TO TWO HOURS PRIOR TO PROCEDURE 10/06 completed Not Available Not Available Not Available amoxicillin 875 mg-potassiu m clavulanate 125 mg tablet TAKE 1 TABLET BY MOUTH TWICE DAILY 10/05 completed Not Available Not Available Not Available Ventolin HFA 90 mcg/actuati on aerosol inhaler 2 puffs prior to exercise 08/12 completed Not Available Not Available Not Available Lexapro 10 mg tablet Take 1 tablet every day by oral route. active Not Available Not Available No t Available nitrofurant oin monohydrate /macrocryst als 100 mg capsule TAKE 1 CAPSULE BY MOUTH TWICE DAILY WITH FOOD 10/05 completed Not Available Not Available Not Available chlorhexidi ne gluconate 0.12 % mouthwash SWISH AND SPIT 1 CAPFULL BID active Not Available Not Available No t Available Eucrisa 2 % topical ointment APPLY A THIN LAYER TO THE AFFECTED AREA(S) BY TOPICAL ROUTE 2 TIMES PER DAY 12/10 completed Not Available Not Available Not Available Norlyda 0.35 mg tablet 10/05 completed Not Available Not Available Not Available ID NOW COVID-19 Test Kit TEST DIRECTED active Not Available Not Available No t Available COVID-19 test specimen collection USE DIRECTED active Not Available Not Available No t Available Vitals Date Recorded Body mass index (BMI) Body height Oxygen saturation Oxygen saturation in Arterial blood by Pulse oximetry Heart rate Body temperature Body weight Systolic blood pressure Diastolic blood pressure Provider Name and Address Organization Details Last Updated DateTime 1 21.6 kg/m2 165.1 cm 98 % 98 % 76 /min 97.5 [degF] 09689.0 1 g 122 mm[Hg] 90 mm[Hg] Not Available [facility] 3 09:16:49 Date Recorded Body mass index (BMI) Body height Oxygen saturation Oxygen saturation in Arterial blood by Pulse oximetry Heart rate Body temperature Body weight Systolic blood pressure Diastolic blood pressure Provider Name and Address Organization Details Last Updated DateTime 1 21 kg/m2 165.1 cm 99 % 99 % 97 /min 96.8 [degF] 78318.6 4 g 110 mm[Hg] 80 mm[Hg] Not Available [facility] 3 09:16:50 Date Recorded Body mass index (BMI) Body height Oxygen saturation Oxygen saturation in Arterial blood by Pulse oximetry Heart rate Body temperature Body weight Systolic blood pressure Diastolic blood pressure Provider Name and Address Organization Details Last Updated DateTime 2 20.6 kg/m2 165.1 cm 98 % 98 % 105 /min 98.7 [degF] 03276.4 5 g 110 mm[Hg] 78 mm[Hg] Not Available [facility] 3 09:16:50 Date Recorded Body mass index (BMI) Body height Oxygen saturation Oxygen saturation in Arterial blood by Pulse oximetry Heart rate Body temperature Body weight Systolic blood pressure Diastolic blood pressure Provider Name and Address Organization Details Last Updated DateTime 2 21 kg/m2 165.1 cm 98 % 98 % 88 /min 97.9 [degF] 36589.6 4 g 100 mm[Hg] 62 mm[Hg] Not Available [facility] 3 09:16:50 Date Recorded Body height Body mass index (BMI) Body weight Body temperature Heart rate Oxygen saturation Oxygen saturation in Arterial blood by Pulse oximetry Systolic blood pressure Diastolic blood pressure Provider Name and Address Organization Details Last Updated DateTime 3 165.1 cm 20.3 kg/m2 15480.2 7 g 98.1 [degF] 78 /min 97 % 97 % 108 mm[Hg] 82 mm[Hg] CHAR Carmen [place] [facility] [place] [employer] [facility] 3 12:29:07 Social History Question Answer Notes LastModified by Organizat ion Details LastModified Time Tobacco Smoking Status Never Smoker Not Available [facility] 06/21/2022 09:13:14 What Is Your Level Of Alcohol Consumption? Occasional [id number] Information not available 06/21/2022 Sex: Unknown Functional Status None recorded. Mental Status None recorded. Family History Relationship Description Onset Age of this Age Resolved Age Notes LastModified by Organization Details LastModified Time Father No current problems or disability [id number] Not available 06/21/2022 09:13:20 Mother No current problems or disability [id number] Not available 06/21/2022 09:13:20 Medical History Condition Response ANXIETY DISORDER Y SLEEP DISORDER Y Gynecological HistoryNo gynecological history recorded. Obstetrics History GPAL:G 0 P 0 0 0 0 Immunizations Vaccine Type Date Status Note Provider Nam e and Address Organization Details Recorded Time DTaP 03/27/2012 completed Not Available [facility] 06/21/2022 09:22:25 Influenza, split virus, quadrivalent, PF 02/19/2020 completed Not Available [facility] 09:22:25 Past Encounters Encounter ID Performer Location Encounter Start Date Encounter Closed Date Diagnosis/Indication Diagnosis SNOMED-CT Code Diagnosis ICD10 Code Diagnosis Note [id number] [facility] [place] [address] 08/11/2020 00:00:00 08/11/2020 18:57:02 [id number] [facility] [place] [address] 12/08/2020 00:00:00 12/08/2020 11:01:03 [id number] [facility] [place] [address] 03/02/2021 00:00:00 03/02/2021 20:19:15 [id number] [facility] [place] [address] 10/06/2021 00:00:00 10/06/2021 14:12:22 [id number] [facility] [place] [address] 11/25/2021 00:00:00 11/26/2021 13:16:44 [id number] Joe Manning MD [facility] [place] [address] 10/05/2022 12:20:39 10/05/2022 12:44:03 Pruritic rash 68854893 L28.2 Pain of mu ltiple joints 02817218 M25.50 Anxiety 48979798 F41.9 Call for refills of alprazolam Health Concerns Section Related Observation LastModified by Organization Detai ls LastModified Time None Recorded Concern Status LastModified by Organization Details LastModified Time None Recorded Advance Directives Directive None Recorded Payers Encounter Date Sequence Insurance Name Policy Number Policy Rojas Covered Member ID Rojas Member ID Guarantor Name 10/05/2022 1 [facility] [id number] Holly A [facility] [id number] Holly Martin Top[employer] Notes Date Note Type Note Provider Name and Address Organization Details Recorded Time 10/05/2022 text/html Here today c/o rash on chest. It went away but 2 months ago broke out on chest. Itches like crazy. Took benadryl and no help. No change in products and no food allergies. No exposure to plants. Has some joint aches. Hands and knees Joe Manning MD [address] [place] [address], [facility] [address], [place], [address], [place] [facility] [employer] [employer] 10/05/2022 22:33:47 OBGyn Episode No OBEpisode recorded.
--- OUTSIDE RECORDS SUMMARY | 2024-08-19 01:01 | XMS_ITS | Clinical Summary ---
Author Organization [facility] [employer] Address [address] [place] [address] Care Team Providers Care Housekeeper Head Name Role Phone Unavailable Primary Care Provider Unavailabl e Source Comments [facility] [employer],non-owned Affiliates and Associated Physician Practices is amultiple site organization consisting of ambulatory clinics and hospital sitesin [place], [place], [place] and [place]. This disclosure is being madepursuant to the Care Everywhere program and may not contain all information available regarding this patient. Last updated 18.Equals6 [employer] Allergies No known active allergies Medications * Be aware that medications may not be up to date on this document. Alwaysverify current medications with the patient. valACYclovir HCl (VALTREX PO) Active levonorgestrel (MIRENA, 52 MG,) 20 MCG/24HR IUD 1 device by Intrauterine route as directed Active Social History Tobacco Use Types Packs/Day Years Used Date Smoking Tobacco: Some Days Cigarettes Smokeless Tobacco: Never Comments No Sex and Gender Information Value Date Recorded Sex Assigned at Not on file Legal Sex Female 6:06 PM [employer] Gender Identity Not on file Sexual Orientation Not on file Last Filed Vital Signs Vital Sign Reading Time Taken Comments Blood Pressure 122/80 05/13/2019 6:05 PM [employer] Pulse 103 05/13/2019 6:05 PM [employer] Temperature 37.3 C (99.2 F) 05/13/2019 6:05 PM [employer] Respiratory Rate 16 05/13/2019 6:05 PM [employer] Oxygen Saturation 98% 05/13/2019 6:05 PM [employer] Inhaled Oxygen Concentration - - Weight 55.8 kg (123 lb) 05/13/2019 6:05 PM [employer] Height 163.8 cm (5' 4.5 ) 05/13/2019 6:05 PM [employer] Body Mass Index 20.79 05/13/2019 6:05 PM [employer] Plan of Treatment Health Maintenance Due Date Last Done Comments LIPID TESTING 1980 MAMMOGRAM 1980 HIV SCREENING 1995 HEPATITIS C SCREENING 06/10/1998 DTAP/TDAP/TD VACCINES (1 - Tdap) 1999 HEPATITIS B VACCINE (1 of 3 - 19+ 3-dose series) 1999 COVID-19 VACCINE (1 - 2023-2 5 season) 2023 DEPRESSION SCREENING 04/23/2024 INFLUENZA VACCINE (Season Ended) 2024 02/19/20 ZOSTER VACCINE (1 of 2) 2030 HIB VACCINE Aged Out No longer eligi ble based on patient's age to complete this topic HPV VACCINE Aged Out No longer eligi ble based on patient's age to complete this topic MENINGOCOCCAL (Group B) VACC INE SHARED DECISION-MAKING Aged Out No longer eligibl e based on patient's age to complete this topic MENINGOCOCCAL GROUPS A/C/Y/W VACCINE Aged Out No longer eligible b ased on patient's age to complete this topic PNEUMOCOCCAL VACCINE Aged Out No long er eligible based on patient's age to complete this topic Insurance [facility] [employer]
--- OUTSIDE RECORDS SUMMARY | 2024-08-19 01:01 | XMS_ITS | Data Portability ---
Author Organization [facility] [place] Address [address] [place] [address] Assessment Encounter Date Assessment Date Assessment LastModified by Organization Details LastModified Time 02/15/2023 02/15/2023 Phone Consent: This visit was completed via televisit; all issues as below were discussed and addressed but no physical exam was performed. If it was felt that the patient should be evaluated in clinic then they were directed there. The patient verbally consented to this virtual Zoom visit or tele-visit. [email or web address] Not available 02/15/2023 16:50:39 04/17/2024 04/17/2024 Annual gynecological exam performed. Patient will come back in a year unless there are new symptoms. [email or web address] Not available 04/17/2024 10:27:34 Plan of Treatment Reminders Order Date Submit Date Provider Last Modified By Organization Details Last Modified Time Details Appointments SURG MISC 2024 07:30A Moiz MATTSON MD Not available Not available Not available SURG POST OP 2024 04:15P Moiz MATTSON MD Not available Not available Not available Lab test, urine 2024 025 [email or web address] [place], [address], [place], [address], 05/30/2024 15:53:30 Referral None recorded. Procedures None recorded. Surgeries None recorded. Imaging US, transvagi nal 2022 023 [email or web address] [place], [address], [place], [address], 04/08/2023 21:10:00 Medication Orders None recorded. Patient TargetsNo targets recorded. Patient InstructionsNo instructions recorded. Reason for Referral None Reported. Results Created Date Observation Date Name Description Value Unit Range Abnormal Flag Note LastModifiedBy Organization Detail LastModifiedTime 02/10/2002/09/2023 CBC W/DIF F WBC 5.9 10'3/ uL 3.6-10 .2 Not Available [facility] (Lab) [address], [place], [address], 02/10/2023 04:01:57 02/10/2002/09/2023 CBC W/DIF F RBC 3.85 10'6/ uL (based on docume nted legal sex) 4.10-5 .30 low Not Available [facility] (Lab) [address], [place], [address], 02/10/2023 04:01:57 02/10/20 23 02/09/2023 CBC W/DIF F HGB 12.3 g/dL (based on docume nted legal sex) 11.9-1 5.8 Not Available [facility] (Lab) [address], [place], [address], 02/10/2023 04:01:57 02/10/20 23 02/09/2023 CBC W/DIF F HCT 37.4 % (based on docume nted legal sex) 37.4-4 8.3 Not Available [facility] (Lab) [address], [place], [address], 02/10/2023 04:01:57 02/10/2002/09/2023 CBC W/DIF F MCV 97.1 fL 82.0-9 9.0 Not Available [facility] (Lab) [address] , [place], [address], 02/10/2023 04:01:57 02/10/20 23 02/09/2023 CBC W/DIF F MCH 31.9 pg 27.0-3 3.0 Not Available [facility] (Lab) [address], [place], [address], 02/10/2023 04:01:57 02/10/20 23 02/09/2023 CBC W/DIF F MCHC 32.9 g/dL 32.0-3 6.0 Not Available [facility] (Lab) [address], [place], [address], 02/10/2023 04:01:57 02/10/20 23 02/09/2023 CBC W/DIF F RDW 11.9 % 11.0-1 5.0 Not Available [facility] (Lab) [address], [place], [address], 02/10/2023 04:01:57 02/10/20 23 02/09/2023 CBC W/DIF F plt 306 10'3/ uL 150-45 0 Not Available [facility] (Lab) [address], [place], [address], 02/10/2023 04:01:57 02/10/20 23 02/09/2023 CBC W/DIF F MPV 9.2 fL 9.8-12 .7 low Not Available [facility] (Lab) [address], [place], [address], 02/10/2023 04:01:57 02/10/20 23 02/09/2023 CBC W/DIF F NRBC's 0.0 % 0 Not Available [facility] (Lab) [address], [place], [address], 02/10/2023 04:01:57 02/10/20 23 02/09/2023 CBC W/DIF F absolute NRBCs 0.0 10'3/ uL 0 Not Available [facility] (Lab) [address], [place], [address], 02/10/2023 04:01:57 02/10/20 23 02/09/2023 CBC W/DIF F neutrophils 51.4 % 37.0-7 2.0 Not Available [facility] (Lab) [address], [place], [address], 02/10/2023 04:01:57 02/10/20 23 02/09/2023 CBC W/DIF F lymphocytes 33.2 % 16.0-4 8.0 Not Available [facility] (Lab) [address], [place], [address], 02/10/2023 04:01:57 02/10/20 23 02/09/2023 CBC W/DIF F monocytes 10.8 % 4.0-14 .0 Not Available [facility] (Lab) [address], [place], [address], 02/10/2023 04:01:57 02/10/20 23 02/09/2023 CBC W/DIF F eosinophils 3.6 % 0.0-9. 0 Not Available [facility] (Lab) [address], [place], [address], 02/10/2023 04:01:57 02/10/20 23 02/09/2023 CBC W/DIF F basophils 0.8 % 0.0-2. 0 Not Available [facility] (Lab) [address], [place], [address], 02/10/2023 04:01:57 02/10/20 23 02/09/2023 CBC W/DIF F immature granulocytes 0.2 % no define d refere nce range Not Available [facility] (Lab) [address], [place], [address], 02/10/2023 04:01:57 02/10/20 23 02/09/2023 CBC W/DIF F absolute neutrophils 3.0 10'3/ uL 1.1-6. 0 Not Available [facility] (Lab) [address] [place], [address], 02/10/2023 04:01:57 02/10/20 23 02/09/2023 CBC W/DIF F absolute lymphocytes 2.0 10'3/ uL 0.7-3. 4 Not Available [facility] (Lab) [address], [place], [address], 02/10/2023 04:01:57 02/10/20 23 02/09/2023 CBC W/DIF F absolute monocytes 0.6 10'3/ uL 0.3-1. 0 Not Available [facility] (Lab) [address], [place], [address], 02/10/2023 04:01:57 02/10/20 23 02/09/2023 CBC W/DIF F absolute eosinophils 0.2 10'3/ uL 0.0-0. 6 Not Available [facility] (Lab) [address], [place], [address], 02/10/2023 04:01:57 02/10/20 23 02/09/2023 CBC W/DIF F absolute basophils 0.1 10'3/ uL 0.0-0. 1 Not Available [facility] (Lab) [address], [place], [address], 02/10/2023 04:01:57 02/10/20 23 02/09/2023 CBC W/DIF F absolute immature granulocytes 0.0 10'3/ uL 0.00-0 .10 02/10 2:16 AM: P indic ates parti al resul ts on a panel have been relea sed. Addit ional resul ts will follo w. 02/10 2:16 AM: This resul t has been final verif ied. No addit ional or reagan ed resul ts are expec katherine. Not Available [facility] (Lab) [address], [place], [address], 02/10/2023 04:01:57 02/10/20 23 02/09/2023 LIPID PANEL ,AMA (LDL- CALC) total cholesterol 194 mg/dL 0-199 Not Available [facility] (Lab) [address], [place], [address], 02/10/2023 04:01:58 02/10/2002/09/2023 LIPID PANEL ,AMA (LDL- CALC) triglyceride s 151 mg/dL 0.00-1 50.00 high NCEP Refer ence Value s for Trigl yceri franco: Vivian l: <150 mg/dL Borde rline High: 150 - 199 mg/dL High: 200 - 499 mg/dL Very High: >/= 500 mg/dL Not Available [facility] (Lab) [address] [place], [address], 02/10/2023 04:01:58 02/10/2002/09/2023 LIPID PANEL ,AMA (LDL- CALC) HDL cholesterol 58 mg/dL >40 Not Available [facility] (Lab) [address] [place], [address], 02/10/2023 04:01:58 02/10/20 23 02/09/2023 LIPID PANEL ,AMA (LDL- CALC) LDL cholesterol 110 mg/dL 0-99 high Cutof f value s recom ross d by the Natio nal Maria Del Rosario stero l Educa tion Progr am: NORMAN ABLE: Maria Del Rosario stero l <200 mg/dL LDL <100 mg/dL BORDE RLINE : Maria Del Rosario stero l 200-2 39 mg/dL LDL 101-1 59 mg/dL HIGHE R RISK: Maria Del Rosario stero l >240 mg/dL LDL >160 mg/dL , HDL <40 mg/dL Not Available [facility] (Lab) [address] [place], [address], 02/10/2023 04:01:58 02/10/2002/09/2023 LIPID PANEL ,AMA (LDL- CALC) non-HDL cholesterol 136 mg/dL no refere nce range A reaso nable goal for non-H DL maria del rosario stero l is one that is 30 mg/dL highe r than the LDL maria del rosario stero l goal. Not Available [facility] (Lab) [address], [place], [address], 02/10/2023 04:01:58 02/10/2002/09/2023 LIPID PANEL ,AMA (LDL- CALC) chol/HDL ratio 3.3 . 0.0-5. 0 On August 15, 2022, [facility] labor atori es reagan ed the equat ion for calcu latin g estim ated low-d ensit y lipop rotei n-cho leste rol (LDL- C) from the Fried eric equat ion to the Saba n/Hop kins equat ion. This new equat ion is only valid for lipid panel s with trigl yceri franco < 400 mg/dL . Studi es narendra demon strat ed that this new equat ion will impro ve the accur acy of LDL-C , espec ially in scena du when LDL-C vijay ntrat ions are relat ively low (< 100 mg/dL ), trigl yceri franco are eleva katherine, or patie nt is non-f astin g. Refer ences : - Saba vargas, Obed Churchill, León Buenrostro , [facility] ede lopez, Uday Glaser, Uday cho h, Ibrahima bolton , and Tony Betancourt . 2013. Comp ariso n of a Novel Metho d vs the Fried eric Equat ion for Estim ating Low-D ensit y Lipop rotei n Maria Del Rosario stero l Level s from the Stand annamaria Lipid Profi le. ALONZO: The Journ al of the Ameri can Medic al Assoc iatio n 310 (19): 2060- . - Aydee kyle V, Bebe J, Norma kyle A, Himanshu M, Starla e R, Dedrick kyle E, Carolina bolton RS, Serafin SR, Saba vargas SS. Fast ing Versu s Nonfa sting and Low-D ensit y Lipop rotei n Maria Del Rosario stero l Accur acy. Circu latio n. 2017Apr 24;137 (1):1 0-19. Not Available [facility] (Lab) [address], [place], [address], 02/10/2023 04:01:58 02/10/20 23 02/09/2023 CMP(C OMPRE HENSI VE METAB OLIC PANEL ) sodium 141 mmol/ L 133-14 6 Not Available [facility] (Lab) [address], [place], [address], 02/10/2023 04:01:58 02/10/20 23 02/09/2023 CMP(C OMPRE HENSI VE METAB OLIC PANEL ) potassium 4.2 mmol/ L 3.5-5. 1 Not Available [facility] (Lab) [address], [place], [address], 02/10/2023 04:01:58 02/10/20 23 02/09/2023 CMP(C OMPRE HENSI VE METAB OLIC PANEL ) chloride 105 mmol/ L 98-107 Not Available [facility] (Lab) [address], [place], [address], 02/10/2023 04:01:58 02/10/20 23 02/09/2023 CMP(C OMPRE HENSI VE METAB OLIC PANEL ) carbon dioxide 26 mmol/ L 21-31 Not Available [facility] (Lab) [address], [place], [address], 02/10/2023 04:01:58 02/10/20 23 02/09/2023 CMP(C OMPRE HENSI VE METAB OLIC PANEL ) anion gap 10 mmol/ L 4-13 Not Available [facility] (Lab) [address], [place], [address], 02/10/2023 04:01:58 02/10/2002/09/2023 CMP(C OMPRE HENSI VE METAB OLIC PANEL ) blood urea nitrogen 13 mg/dL 7-25 Not Available [facility] (Lab) [address], [place], [address], 02/10/2023 04:01:58 02/10/20 02/09/2023 CMP(C OMPRE HENSI VE METAB OLIC PANEL ) creatinine 0.70 mg/dL 0.60-1 .30 Not Available [facility] (Lab) [address], [place], [address], 02/10/2023 04:01:58 02/10/20 23 02/09/2023 CMP(C OMPRE HENSI VE METAB OLIC PANEL ) egfrcr (CKD-epi 2020) >90 mL/mi n/1.7 3_m2 >=60 Not Available [facility] (Lab) [address], [place], [address], 02/10/2023 04:01:58 02/10/2002/09/2023 CMP(C OMPRE HENSI VE METAB OLIC PANEL ) calcium 9.3 mg/dL 8.3-10 .5 Not Available [facility] (Lab) [address], [place], [address], 02/10/2023 04:01:58 02/10/20 23 02/09/2023 CMP(C OMPRE HENSI VE METAB OLIC PANEL ) glucose 88 mg/dL 70-100 Not Available [facility] (Lab) [address], [place], [address], 02/10/2023 04:01:58 02/10/2002/09/2023 CMP(C OMPRE HENSI VE METAB OLIC PANEL ) protein, total 7.2 g/dL 6.4-8. 3 Not Available [facility] (Lab) [address], [place], [address], 02/10/2023 04:01:58 02/10/2002/09/2023 CMP(C OMPRE HENSI VE METAB OLIC PANEL ) albumin 4.5 g/dL 3.5-5. 0 Not Available [facility] (Lab) [address], [place], [address], 02/10/2023 04:01:58 02/10/2012 0202/09/2023 CMP(C OMPRE HENSI VE METAB OLIC PANEL ) ALT 15 units /L 9-43 Not Available [facility] (Lab) [address], [place], [address], 02/10/2023 04:01:58 02/10/20 23 02/09/2023 CMP(C OMPRE HENSI VE METAB OLIC PANEL ) alkaline phosphatase 37 units /L 34-104 Not Available [facility] (Lab) [address], [place], [address], 02/10/2023 04:01:58 02/10/20 23 02/09/2023 CMP(C OMPRE HENSI VE METAB OLIC PANEL ) AST 21 units /L 13-39 Not Available [facility] (Lab) [address], [place], [address], 02/10/2023 04:01:58 02/10/20 23 02/09/2023 CMP(C OMPRE HENSI VE METAB OLIC PANEL ) bilirubin, total 0.4 mg/dL 0.2-1. 2 Not Available [facility] (Lab) [address], [place], [address], 02/10/2023 04:01:58 02/10/20 23 02/09/2023 TSH, REFLE X FREE T4 TSH 2.17 uIU/m L 0.30-5 .33 Not Available [facility] (Lab) [address], [place], [address], 02/10/2023 04:01:59 02/10/20 23 02/09/2023 VITAM IN D, 25-OH (TOTA L D2/D3 ) vitamin D, 25-hydroxy, total 30.6 NG/mL 30.0-1 00.0 Sugge stive of Defic iency : <20 ng/mL Sugge stive of Insuf ficie ncy: 20-29 ng/mL Sugge stive of Suffi cienc y: 30-10 0 ng/mL Sugge stive of Toxic ity: >150 ng/mL Not Available [facility] (Lab) [address], [place], [address], 02/10/2023 04:01:59 02/10/2002/09/2023 HEMOG LOBIN A1C hemoglobin A1C 5.1 % 0-5.6 The Ameri can Diabe delma Assoc iatio n recom mends that a prima ry goal of thera py shoul d be a HBA1C of < 7% and that physi cians shoul d reeva luate the treat ment regim en in patie nts with HBA1C value s consi stent ly > 8%. <5.7% Vivian l 5.7 - 6.4% Incre ased risk for diabe delma >=6.5 % Diagn ostic of diabe delma <7.0% Goal of thera py >8.0% Actio n sugge sted Not Available [facility] (Lab) [address], [place], [address], 02/10/2023 04:02:00 02/10/2002/09/2023 VAGIN ITIS/ VAGIN OSIS, DNA PROBE amada sp. detection, direct probe Negati ve negati ve Not Available [facility] (Lab) [address] [place], [address], 02/12/2023 12:16:36 02/10/2002/09/2023 VAGIN ITIS/ VAGIN OSIS, DNA PROBE gardnerella vag. detection, direct probe Positi ve negati ve abnormal Not Available [facility] (Lab) [address], [place], [address], 02/12/2023 12:16:36 02/10/2002/09/2023 VAGIN ITIS/ VAGIN OSIS, DNA PROBE trichomonas vag. detection, direct probe Negati ve negati ve Not Available [facility] (Lab) [address] [place], [address], 02/12/2023 12:16:36 11/08/19 24 11/08/2023 VAGIN ITIS/ VAGIN OSIS, DNA PROBE amada sp. detection, direct probe Negati ve negati ve Not Available [facility] (Lab) [address], [place], [address], 11/09/2023 20:33:54 11/08/19 24 11/08/2023 VAGIN ITIS/ VAGIN OSIS, DNA PROBE gardnerella vag. detection, direct probe Negati ve negati ve Not Available [facility] (Lab) [address], [place], [address], 11/09/2023 20:33:54 11/08/19 24 11/08/2023 VAGIN ITIS/ VAGIN OSIS, DNA PROBE trichomonas vag. detection, direct probe Negati ve negati ve Not Available [facility] (Lab) [address], [place], [address], 11/09/2023 20:33:54 04/17/20 24 04/17/2024 IMAGE GUIDE D PAP AND HPV REGAR DLESS image guided Pap, HPV regardless of Pap result SEE RESULT S BELOW abnormal CASE REPOR T: Cytol ogy Gynec ologi ro Repor t Case: [id number] Autho scarlet conde Provi dexter: Marcy Stevens NP Colle cted: 04/17 1126 Order ing Locat ion: [place] Patho logy Recei chelsi: 04/18 0202 First Scree n: Misha turk, Holly mera, [place] Patho logis t: Shai Loco MD Speci men: Payal rodriguez Pap - Image d, Cervi x STATE MENT OF ADEQU ACY: Satis facto ry for evalu ation Trans forma tion zone compo tony rogers nt ----- ----- ----- ----- ----- ----- ----- ----- ----- ----- ----- ----- ----- ----- ----- ----- ----- ---- FINAL DIAGN OSIS: Epith elial Cell Abnor malit y, Squam ous Cell: Atypi ro Squam ous Cells of Undet ermin ed Nitish pinto (ASC- US). Elect selvin abarca by Shai winter MD on 025 at 1437 MEASUREMENT SUPERVISOR ----- ----- ----- ----- ----- ----- ----- ----- ----- ----- ----- ----- ----- ----- ----- ----- ----- ---- HPV RESUL TS: HPV mRNA E6/E7 : Posit janette - HPV mRNA Detec kathernie HPV GENOT YPE 16 ([place]) : Not Detec katherine HPV GENOT YPE 18/45 ([place]) : Not Detec katherine NOTE: This high risk HPV mRNA assay detec ts fourt een high- risk HPV types (16, 18, 31, 33, 35, 39, 45, 51, 52, 56, 58, 59, 66, 68) witho ut diffe renti ation . This assay can diffe renti ate HPV 16 from HPV 18/45 , but does not diffe renti ate betwe en HPV 18 and HPV 45. A negat janette HPV 16, 18/45 genot ype assay resul t does not exclu de the possi bilit y of cytol ogic abnor malit ies or of futur e or under lying KAMILAH 1, KAMILAH 3 or cance r. COMME NT: This speci men was revie wed by a Cytot echno logis t and/o r Patho logis t (as indic ated in this repor t) after evalu ation using the Thinp rep Imagi ng Syste m. CLINI RO INFOR MATIO N: Menst rual Statu s: LMP (if appli cable ): Clini ro Histo ry/Pr eviou s Pap: Type of Neopl ferny (if appli cable ): Nitish calderon Clini ro Findi ngs: Other Histo ry: Hormo ely (if appli cable ): RILEY DE [place] FO[place]O W-UP: Follo w up as warra nted, based on curre nt guide lines and indiv idual patie nt consi derat ions. 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 -Back frances abarca low-g rade squam ous intra epith elial lesio n (KAMILAH- 1). Elect selvin abarca by Raysa pappas MD on 2024 at 1056 MEASUREMENT SUPERVISOR ----- ----- ----- ----- ----- ----- ----- ----- ----- ----- ----- ----- ----- ----- ----- ----- ----- ---- CLINI RO INFOR MATIO N: human papil lomav irus deoxy ribon uclei c acid detec katherine MICRO SCOPI C DESCR IPTIO N: A micro scopi c exami natio n was perfo rmed. An immun ohist ochem ical stain for p16, perfo rmed on block A1, shows stron g, diffu se nucle ar and cytop lasmi c block posit ivity in area of high- grade dyspl ferny (appr opria te contr ols revie wed). This test was devel oped and its perfo rmanc e kristin cteri stics deter mined by [facility]. It has not been clear ed or appro chelsi by the U. S. Food and Drug Admin istra tion. The FDA has deter mined that such clear ance or appro teja is not neces rosario. This test may be used for clini ro purpo se. It shoul d not be regar ded as inves tigat ional or for resea rch. This labor atory is certi fied under the Clini ro Labor atory Impro vemen t Amend ments of 1987 (CLIA ) as quali fied to perfo rm high compl exity clini ro labor atory testi ng. In cases which have decal cifie d tissu es, the resul ts shoul d be inter prete d with cauti on given the possi bilit y of false negat vianey. The posit janette contr ols demon strat e appro priat e posit janette stain ing. The known tissu e negat janette contr ols are negat janette. The non-i mmune serum contr ol was non-r eacti ve. GROSS DESCR IPTIO N: A. Cervi x. The speci men is label ed with the patie nt's name, demog raphi cs only. Recei chelsi in forma nati are 2 piece s of pink- abbasi tissu e measu ring 0.2 cm each. The entir e speci men is submi tted in one casse tte. Gross ed by Chantale Gan Not Available [facility] (Lab) [address], [place], [address], 06/04/2024 12:01:26 05/30/19 25 05/30/2024 SURGI RO PATHO LOGY surgical pathology CANCEL LED Other Not Available [facility] (Lab) [address], [place], [address], 06/19/2024 15:44:38 05/30/19 25 05/30/2024 pregn angel test, urine HCG negati ve Not Available [facility] [address], [place], [address], 05/30/2024 15:52:04 02/13/2002/12/2023 US, pelvi s No observ ation record ed. [email or web address] [facility] [address], [place], [address], 02/12/2023 13:02:18 02/13/20 23 02/12/2023 US, trans vagin al No observ ation record ed. [email or web address] [facility] [address], [place], [address], 02/12/2023 13:02:09 02/13/2002/12/2023 US, pelvi s No observ ation record ed. LIBRADO [facility] [address], [place], [address], 02/13/2023 11:12:57 04/06/2004/06/2023 US, trans vagin al No observ ation record ed. [facility] [address], [place], [address], 04/06/2023 17:41:01 04/06/2004/06/2023 US, trans vagin al No observ ation record ed. LIBRADO [address], [place], [address], 04/17/2023 16:09:33 Result Notes None recorded. Problems Name Problem SNOMED Code Status Onset Date Resolution Date Notes Provider Name and Address Organization Details Recorded Time Microsco pic hematuri a 780631589 Completed 201506/25/2020 Other microsco pic hematuri a;Record ed Elsewher e: No Locat ion: [facility] S ource: EHR Photoengraving Proofer georgiana: N Practi ce ID: [id number] Omer lable Time: 09:30:00 AM Salome [facility] 12:51:46 Screenin g for malignan t neoplasm of cervix Completed 201106/25/2020 Screenin g for malignan t neoplasm s of the cervix;R ecorded Elsewher e: No Locat ion: [facility] S ource: EHR [employer] Proofer ge[place]iana: N Practi ce ID: [id number] Omer lable Time: 11:30:00 AM Salome Pang [facility], [facility] 12:51:59 Vaginiti s and vulvovag initis Completed 201006/25/2020 Vaginiti s and vulvovag initis, unspecif ied;Prac tess ID: [id number] Salome Pang [facility] 12:52:14 Health conditio n feared but not present [id number] Completed 201006/25/2020 Person with feared complain t in whom no diagnosi s was made;Pra ctice ID: [id number] Salome Pang [facility] 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 12:52:02 Pregnanc y test negative [id number] Completed 201006/25/2020 Pregnanc y examinat ion or test, negative result;R ecorded Elsewher e: No Locat ion: [facility] Azeem ce ID: [id number] Omer lable Time: 08:45:00 AM Salome lassiter [facility] 12:51:53 Contrace ptive sheath status [id number] Completed 201506/25/2020 IUD follow up;Recor ded Elsewher e: No Locat ion: [facility] S ource: [facility] ge[place]iana: N Azeem ce ID: [id number] Omer lable Time: 06:00:00 PM Salome Pang [facility] 12:50:51 Left lower quadrant pain [id number] Completed 201506/25/2020 LLQ pain;Rec orded Elsewher e: No Locat ion: [facility] [place] N Azeem ce ID: [id number] Omer lable Time: 05:00:00 PM Salome lassiter [facility] 12:51:39 Clinical finding Completed 201506/25/2020 Presence of (intraut erine) contrace ptive device;R ecorded Elsewher e: No Locat ion: [facility] [place]: Estefanía Gann ce ID: 0001 Omer lable Time: 09:30:00 AM Salome lassiter [facility] 12:50:48 Female genital organ symptoms [id number] Completed 201006/25/2020 Unspecif ied symptom associat ed with female genital organs;Malka ractice ID: 0001 Salome lassiter, [facility] 12:51:21 Pelvic and perineal pain 980578824 Completed 201506/25/2020 Pelvic and perineal pain;Pra ctice ID: 0001 Salome lassiter [facility] 12:51:51 Evaluati on finding Completed 201606/25/2020 Hematuri a, unspecif ied;Prac tess ID: 0001 Salome lassiter, [facility] 12:51:18 Finding of sensatio n of breast Completed 201706/25/2020 Mastodyn ia;Pract ice ID: 0001 Salome lassiter, [facility] 12:51:24 Acute vaginiti s 95725873 Completed 201906/25/2020 Acute vaginiti s;Practi ce ID: 0001 Salome Pang [facility], [facility] 12:50:42 Disorder of breast 33724893 Completed 201506/25/2020 Disorder of breast, unspecif ied;Noah rded Elsewher e: No Locat ion: [facility] S ource: [employer] [employer] Proofer [place]: N Practi ce ID: 0001 Omer lable Time: 05:00:00 PM [facility] 12:51:14 Breast lump [id number] Completed 201506/25/2020 Unspecif ied lump in breast;R ecorded Elsewher e: No Locat ion: [facility] S ource: [facility] [employer] [place]: N Practi ce ID: 0001 Omer lable Time: 11:30:00 AM Salome lassiter [facility] 12:50:45 Pain of breast 82274066 Completed 201406/25/2020 Mastodyn ia;Recor ded Elsewher e: No Locat ion: [facility] S ource: [facility] [employer] [place]: N Practi ce ID: 0001 Omer lable Time: 02:00:00 PM Salome lassiter [facility] 1 12:51:48 Urinary tract infectio us disease 61474698 Completed 201506/25/2020 Urinary tract infectio n, site not specifie d;Record ed Elsewher e: No Locat ion: [facility] S ource: [facility] [employer] [place]: N Practi ce ID: 0001 Omer lable Time: 02:15:00 PM Salome Pang [facility] 12:52:10 Removal of intraute rine device Completed 201506/25/2020 Encounte r for removal of intraute rine contrace ptive device;R ecorded Elsewher e: No Locat ion: [facility] S ource: [facility] [employer] [place]: N Practi ce ID: 0001 Omer lable Time: 11:15:00 AM Salome Pang [facility] 12:51:56 Dysfunct ional uterine bleeding Completed 201006/25/2020 Other disorder s of menstrua tion and other abnormal bleeding from female genital tract;Re corded Elsewher e: No Locat ion: [facility] S ource: [facility] [employer] [place]: N Practi ce ID: 0001 Omer lable Time: 08:45:00 AM [facility] 12:51:16 Insertio n of intraute rine contrace ptive device Completed 201506/25/2020 Encounte r for insertio n of intraute rine contrace ptive device;R ecorded Elsewher e: No Locat ion: [facility] S ource: [facility] [employer] [place]: N Practi ce ID: 0001 Omer lable Time: 09:30:00 AM Salome Pang maikol [facility] 12:51:34 Speciali zed medical examinat ion Completed 201406/25/2020 Gynecolo gical Examinat ion;Noah rded Elsewher e: No Locat ion: [facility] S ource: [facility] [employer] [place]: N Practi ce ID: 0001 Omer lable Time: 11:00:00 AM Salome lassiter [facility] 12:52:04 Uses IUD (intraut erine device) contrace ption [id number] Completed 201006/25/2020 Surveill ance of intraute rine contrace ptive device;P ractice ID: 0001 Salome lassiter, [facility] 12:51:37 Contusio n of genital organ 741487056 Completed 201406/25/2020 Contusio n of vulva;Re corded Elsewher e: No Locat ion: [facility] S ource: [facility] [employer] [place]: N Practi ce ID: 0001 Omer lable Time: 02:30:00 PM Salome Pang maikol [facility] 12:51:08 Malaise and fatigue 025658885 Completed 201406/25/2020 Fatigue / Malaise; Recorded Elsewher e: No Locat ion: [facility] S ource: [facility] [employer] [place]: N Merati ce ID: 0001 Omer lable Time: 11:00:00 AM Salome Poly maikol [facility] 12:51:44 Ill-defi jesus intestin al infectio n Completed 201206/25/2020 No Show Fee;Prac tess ID: 0001 Salome Pang [facility] 12:51:32 Speciali zed medical examinat ion Completed 201406/25/2020 Other specifie d chlamydi al diseases ;Practic e ID: 0001 Salome Pang maikol [facility] 12:52:07 Venereal disease screenin g Completed 201406/25/2020 Screenin g examinat ion for venereal disease; Practice ID: 0001 Salome lassiter [facility] 12:52:16 Leukorrh ea [id number] Completed 201406/25/2020 Leukorrh ea, not specifie d as infectiv e;Record ed Elsewher e: No Locat ion: Shila bernstein [facility] S ource: [facility] [employer] [place]: N Practi ce ID: 0001 Omer lable Time: 02:00:00 PM Salome lassiter [facility] 12:51:42 Generali zed abdomina l pain [id number] Completed 201006/25/2020 Abdomina l pain, generali zed;Prac tess ID: 0001 Salome lassiter [facility] 12:51:26 Cyst of ovary 31420779 Completed 201006/25/2020 OVARIAN CYST;Pra ctice ID: 0001 Salome lassiter, [facility] 12:51:11 Problem Notes None recorded. Procedures Surgical History Date Name Laterality Status Provider Name and Address Organization Details Recorded Time 05/30/19 25 Colposcopy completed Hawk Mattson MD [address], [place], [address], [facility] 05/30/2024 16:21:11 05/30/19 25 Colposcopy completed Violet Person [facility] 05/30/2024 15:47:02 05/30/19 25 colposcopy completed Violet Person [facility] 05/30/2024 15:46:42 04/17/20 24 Date of Last Pap Smear completed Violet Person [facility] 05/30/2024 15:41:13 11/22/19 24 Date of Last Mammogram completed Fabiola Morrow [facility] 04/17/2024 10:31:13 11/01/19 23 Colposcopy completed AMANDA Solares- [address], [place], [address], [place] [facility] 10/31/2022 10:24:39 09/27/19 22 IUD Insertion completed AMANDA Nichole [address], [place], [address], [place] [facility] 09/26/2021 17:55:57 10/06/19 21 DILATION AND CURETTAGE WITH HYSTEROSCOPY (SURG) completed Marcella Hillman [facility] 10/06/2020 11:49:18 09/05/19 20 IUD Removal completed Maria Isabel Mcclain [facility] 09/05/2019 15:10:40 03/23/20 16 Dilation and Curettage completed Salome Pang [facility] 06/25/2020 09:02:06 04/23/19 12 excision of melanoma completed Salome Pang [facility] 06/25/2020 09:01:19 06/22/19 02 augmentation mammoplasty completed Mireya Lott [facility] 08/20/2019 15:57:32 Imaging Results Imaging Date Name Status LastModified by Organization Details LastModified Time 02/12/2023 US, pelvis completed [email or web address] Milton [address], [place], [address], 02/12/2023 13:02:18 02/12/2023 US, transvaginal completed [email or web address] Shila berntsein [address], [place], [address], 02/12/2023 13:02:09 02/12/2023 US, pelvis completed LIBRADO Rolanda [address], [place], [address], 02/13/2023 11:12:57 04/06/2023 US, transvaginal completed romana bernstein [address], [place], [address], 04/06/2023 17:41:01 04/06/2023 US, transvaginal completed LIBRADO Rolanda [address], [place], [address], 04/17/2023 16:09:33 Procedure Notes None recorded. Medical Equipment None Reported. Allergies No known drug allergies Medications Name Sig Start Date Stop Date Status Note LastModified by Organization Details LastModified Time Mirena 21 mcg/24 hr (up to 8 years) 52 mg intrauter ine device 1 every 5 years 09/04 completed Not Available Not Available Not Available clindamyc in HCl 300 mg capsule TAKE 1 CAPSULE BY MOUTH THREE TIMES DAILY UNTIL GONE 04/17 completed Not Available Not Available Not Available azithromy kamilah 250 mg tablet take 2 tablet (500MG) by oral route every day for 1 day then 1 tablet (250 mg) by oral route once daily for 4 days 06/25 completed Not Available Not Available Not Available ibuprofen 800 mg tablet Take 1 tablet 2 hours before the procedur e. active Not Available Not Available No t Available fluconazo le 150 mg tablet TAKE 1 TABLET BY MOUTH 1 TIME. REPEAT IN 7 DAYS NEEDED 02/09 completed Not Available Not Available Not Available valacyclo vir 1 gram tablet TAKE 1 TABLET BY MOUTH TWICE DAILY FOR 7 DAYS 10/05 completed Not Available Not Available Not Available hydrocodo ne 5 mg-acetam inophen 325 mg tablet TAKE 1 TABLET BY MOUTH EVERY 4 HOURS NEEDED FOR PAIN 04/17 completed Not Available Not Available Not Available fluconazo le 200 mg tablet TAKE 1 TABLET BY MOUTH EVERY OTHER DAY FOR 3 DOSES. REPEAT THIS REGIMEN IN 1 WEEK 11/07 completed Not Available Not Available Not Available metronida zole 0.75 % (37.5 mg/5 gram) vaginal gel INSERT ONE APPLICAT ORFUL VAGINALL Y AT BEDTIME FOR 5 NIGHTS 11/07 completed Not Available Not Available Not Available clonazepa m 0.5 mg tablet active As needed Not Available Not Available Not Available metronida zole 500 mg tablet Take 1 tablet twice a day by oral route with meals for 7 days. 11/07 completed Not Available Not Available Not Available valacyclo vir 500 mg tablet TAKE 1 TABLET BY MOUTH EVERY DAY active Not Available Not Available No t Available triamcino lone acetonide 0.1 % topical cream APPLY THIN LAYER TOPICALL Y TO THE AFFECTED AREA TWICE DAILY 10/31 completed Not Available Not Available Not Available amoxicill in 500 mg tablet TAKE 1 TABLET BY MOUTH THREE TIMES DAILY FOR 5 DAYS 04/17 completed Not Available Not Available Not Available ondansetr on 8 mg disintegr ating tablet Take 1 tablet 2 hours before procedur e. active Not Available Not Available No t Available nystatin- triamcino lone 100,000 unit/gram -0.1 % topical ointment APPLY TOPICALL Y TO THE AFFECTED AREA TWICE DAILY FOR 5 DAYS 02/09 completed Not Available Not Available Not Available oxycodone -acetamin ophen 5 mg-325 mg tablet take 2 tablets 2 hours before the procedur e active Not Available Not Available No t Available alprazola m 0.5 mg tablet Take 1 tablet 2 hours before the procedur e. active Not Available Not Available No t Available amoxicill in 875 mg tablet TAKE 1 TABLET BY MOUTH TWICE DAILY active Not Available Not Available No t Available alprazola m 0.25 mg tablet TAKE 1 TABLET BY MOUTH EVERY DAY NEEDED 04/17 completed Not Available Not Available Not Available cephalexi n 500 mg capsule TAKE 1 CAPSULE BY MOUTH THREE TIMES DAILY FOR 7 DAYS 08/25 completed Not Available Not Available Not Available oseltamiv ir 75 mg capsule 10/01 completed Not Available Not Available Not Available lisinopri l 10 mg tablet TAKE 1 TABLET BY MOUTH EVERY DAY 10/31 completed Not Available Not Available Not Available hydrochlo rothiazid e 12.5 mg capsule TAKE 1 CAPSULE BY MOUTH EVERY DAY 10/31 completed Not Available Not Available Not Available monteluka st 10 mg tablet 10/01 completed Not Available Not Available Not Available methylpre dnisolone 4 mg tablets in a dose pack FOLLOW PACKAGE DIRECTIO NS 04/17 completed Not Available Not Available Not Available Vitamin D2 1,250 mcg (50,000 unit) capsule take 1 capsule by oral route every week 08/25 completed Prescrib ed Elsewher e: No Locat ion: [facility] odify By: zabrina Bernstein ncounter DateTime : 10/30/19 09:31:50 AM Not Available Not Available Not Available intrauter ine device (IUD) Take by intraute rine route. 08/28 completed Not Available Not Available Not Available diazepam 5 mg tablet TAKE 1 TABLET BY MOUTH ONE TO TWO HOURS PRIOR TO PROCEDUR E 10/31 completed Not Available Not Available Not Available amoxicill in 875 mg-potass ium clavulana te 125 mg tablet TAKE 1 TABLET BY MOUTH TWICE DAILY 10/05 completed Not Available Not Available Not Available nitrofura ntoin monohydra te/macroc rystals 100 mg capsule TAKE 1 CAPSULE BY MOUTH TWICE DAILY WITH FOOD 10/05 completed Not Available Not Available Not Available Enjuvia 1.25 mg tablet take 1 tablet (1.25MG) by oral route every day 03/13 completed Prescrib ed Elsewher e: No Locat ion: [facility] odify By: loren baeer DateTime : 03/02/20 10:31:15 AM Not Available Not Available Not Available Kalpana 0.35 mg tablet Take 1 tablet every day by oral route. 10/05 completed Not Available Not Available Not Available Slynd 4 mg (28) tablet Take 1 tablet every day by oral route. 10/01 completed Not Available Not Available Not Available ID NOW COVID-19 Test Kit TEST DIRECTED 08/25 completed Not Available Not Available Not Available COVID-19 test specimen collectio n USE DIRECTED 08/25 completed Not Available Not Available Not Available Vitals Date Recorded Body height Body mass index (BMI) Body weight Systolic blood pressure Diastolic blood pressure Provider Name and Address Organization Details Last Updated DateTime 11/08/2023 162.56 cm 22.9 kg/m2 25224.5 g 134 mm[Hg] 89 mm[Hg] Trina Valadez [facility] 4 14:13:10 Date Recorded Body height Body mass index (BMI) Body weight Systolic blood pressure Diastolic blood pressure Provider Name and Address Organization Details Last Updated DateTime 04/17/2024 162.56 cm 22.8 kg/m2 53966.79 g 133 mm[Hg] 88 mm[Hg] Fabiola Morrow [facility] 4 10:28:47 Social History Question Answer Notes LastModified by Organizat ion Details LastModified Time Tobacco Smoking Status Former Smoker Salome lassiter, [facility] 06/25/2020 12:55:05 What Is Your Level Of Alcohol Consumption? Occasional [email or web address] Information not available 06/25/2020 If You Are , What Was Your Level Of Alcohol Consumption Prior To ? None [email or web address] Information not available 06/25/2020 Are You Blind Or Do You Have Difficulty Seeing? No [email or web address] Information not available 06/25/2020 What Is Your Level Of Caffeine Consumption? Moderate Information not available 06/25/2020 In The 14 Days Before Symptom Onset, Have You Had Close Contact With A Laboratory-confir med COVID-19 While That Case Was Ill? No [email or web address] Information not available 06/25/2020 In The 14 Days Before Symptom Onset, Have You Had Close Contact With A Person Who Is Under Investigation For COVID-19 While That Person Was Ill? No [email or web address] Information not available 06/25/2020 Have You Been To An Area Known To Be High Risk For COVID-19? No [email or web address] Information not available 06/25/2020 Are You Deaf Or Do You Have Serious Difficulty Hearing? No [email or web address] Information not available 06/25/2020 What Type Of Diet Are You Following? REGULAR [email or web address] Information not available 06/25/2020 Have You Ever Been Counseled For Unhealthy Alcohol Use? No [email or web address] Information not available 06/25/2020 Do You Use Your Seat Belt Or Car Seat Routinely? Yes [email or web address] Information not available 06/25/2020 Do You Have Smoke And Carbon Monoxide Detectors In Your Home? Yes [email or web address] Information not available 06/25/2020 Do You Feel Stressed (tense, Restless, Nervous, Or Anxious, Or Unable To Sleep At Night)? [id number] [email or web address] Information not available 06/25/2020 Do You Use Any Illicit Or Recreational Drugs? No [email or web address] Information not available 06/25/2020 Do You Use Sunscreen Routinely? Yes [email or web address] Information not available 06/25/2020 Has Tobacco Cessation Counseling Been Provided? No [email or web address] Information not available 06/25/2020 Do You Or Have You Ever Used Any Other Forms Of Tobacco Or Nicotine? No [email or web address] Information not available 06/25/2020 Sex: Unknown Functional Status Question Answer Note LastModified by Organizat ion Details LastModified Time Do you have difficulty walking or climbing stairs? No Information not available 08/25/2021 Are you able to walk? YESWOREST [email or web address] Information not available 06/25/2020 Are you able to care for yourself? Yes Information not available 08/25/2021 Do you have difficulty dressing or bathing? No Information not available 08/25/2021 What is your exercise level? Occasional [email or web address] Information not available 06/25/2020 Mental Status None recorded. Family History Relationship Description Onset Age of this Age Resolved Age Notes LastModified by Organization Details LastModified Time Sister Disorder of thyroid gland [email or web address] Not available 08/19 15:54:36 Paternal Aunt Malignant neoplasm of skin [email or web address] Not available 08/19 15:54:52 Paternal Grandfather Malignant neoplasm of lung [email or web address] Not available 08/19 15:55:13 Paternal Grandfather Carcinoma of prostate 56 [email or web address] Not available 06/25 18:40:18 Maternal Grandmother Neoplasm of bone marrow [email or web address] Not available 08/2020 09:00:57 Maternal Grandmother Malignant lymphoma 70 [email or web address] Not available 06/25 18:41:03 Mother Malignant tumor of breast 67 [email or web address] Not available 06/25 18:40:32 Mother Malignant melanoma [email or web address] Not available 2023 10:33:22 Medical History Condition Response Allergies (Food, seasonal, environmental ) N Other Y Drug/Latex Allergies/Reactions N Blood Transfusion N Breast Cancer N Dermatologic Disorders Y Lung Disease N Defects or Inherited Disease N Breast Problem Y Gestational Diabetes N Hematologic disorders N Anesthesia Complications N History of STI Y Deep Vein Thrombosis N Polycystic ovary syndrome N Anxiety Disorder N Autoimmune disease N Arthritis N Polyps N Infertility N Acid Reflux (GERD) N History of abnormal pap Y Cancer N Varicosities N Stroke N Neurologic/Epilepsy N Endometriosis N High Cholesterol N Fibromyalgia N Headaches N Kidney Disease N Heart Problems N Thyroid Problems N Kidney or Bladder Problems N GI Problems N Eating Disorder N Anemia Y Art (IVF or FET) N Psychiatric Illness N Ovarian Cancer N Diabetes N Pulmonary (TB, Asthma) N Hepatitis/Liver Disease N Eczema N Urinary Tract Infection N Abuse/Domestic Violence N Asthma N Trauma/Violence N Depression/ depression N Heart Disease N Pre-Eclampsia N Hypertension N Osteoporosis N Thrombophilias N Gynecological History Statement/Question Response Abnormal Pap Yes Date of Last Mammogram 11/22/2023 Flow Moderate Date of LMP 05/07/2024 Was last menstrual period normal Y STIs/STDs Yes HPV Vaccine N Colposcopy 05/30/2024 Duration of Flow (days) 4 Current Control Method Withdrawal Are cycles usually normal Y Frequency of Cycle (Q days) 23 Sexually Active? Y Menses Monthly Y Age of first menstrual cycle 12 Date of Last Pap Smear 04/17/2024 Sexual Problems? N Desired Control Method None LMP Definite Obstetrics History GPAL:G 7 P 3 0 4 3 Type Value Full Term 3 Induced 4 Living 3 Total 7 Past Encounters Encounter ID Performer Location Encounter Start Date Encounter Closed Date Diagnosis/Indication Diagnosis SNOMED-CT Code Diagnosis ICD10 Code Diagnosis Note [id number] [place] [address] [address] 08/25/2019 15:51:48 08/26/2019 09:48:18 Pain in pelvis 00641391 R10.2 I offered U/S, but she declines since her pain has resolved. She has had known ovarian cyst in past with Mirena, and we discussed that Mirena does increase the risk of ovarian cysts. Overall she is happy with Mirena but will call if severe pain recurs or any other concerning symptoms Chronic vaginitis 664207 08 N76.1 She believes she gets BV frequently , so I advised adding a probiotic containing lactobacil pal. No testing done today since no current sx of vaginitis, and she declines STD testing. She also may want to add a probiotic for GI health since she diarrhea and constipati on. I spent 15 minutes face to face with her with majority of time in counseling . [id number] [place] [address],[place] [address] 08/28/2019 12:27:30 08/28/2019 13:26:16 Pain in pelvis 16559363 R10.2 N83.292 [id number] [place] [address],[place] [address] 08/29/2019 14:15:03 08/29/2019 15:46:38 Cyst of left ovary 1438248873 9637317 N83.202 We discussed options including removing Mirena IUD, starting OCP, expectant management , or surgery. She's interested in switching from Mirena to ParaGard so we'll schedule that and she was given benefit sheet to check prior to that appointmen t. Then we'll plan to repeat U/S 6-8 weeks after Mirena removed. She has not tolerated OCP in past, even loloestrin , so she declines that. I spent 15 minutes face to face with her with majority of time in counseling Acute pelvic pain 259044 005 R10.2 likely due to cyst [id number] [place] [address],[place] [address] 09/05/2019 14:17:56 09/05/2019 16:10:36 Cyst of left ovary 1592367828 9617848 N83.202 Mirena removed today. She agrees to repeat U/S in 6-8 weeks. She is considerin g ParaGard IUD but wants to have some time without anything in that area. She plans to abstain but says she'll use condoms if not. Removal of intrauterine device 80693174 Z30.432 [id number] [facility] [address],[place] [address] 10/17/2019 13:59:11 10/17/2019 14:36:04 Cyst of left ovary 2286826880 9435449 N83.[id number] [place] [address],[place] [address] 10/17/2019 13:59:42 10/17/2019 15:00:01 Cyst of left ovary 6683766583 4746933 N83.202 Cyst resolved after Mirena removal. She is currently going through a separation and is not sexually active, so she declines contracept ion for now. She likely will get another ParaGard in the future. She used it in the past and liked it. Annual due 10/23 or after. She scheduled visit 11/26 for annual. I spent 15 minutes face to face with ehr with majority of time in counseling [id number] CNM [place] [address],[place] [address] 06/25/2020 12:28:27 06/25/2020 17:29:36 Gynecologic examination 72745067 Z01.419 [id number] [facility] [address],[place] [address] 07/05/2020 11:56:24 07/05/2020 12:26:21 Pain in pelvis 23801354 R10.2 [id number] [facility] [address],[place] [address] 08/16/2020 09:57:37 08/16/2020 10:41:40 Cyst of right ovary 1547924387 0489249 N83.291 [id number] Hawk Mattson MD [place] [address],[place] [address] 08/26/2020 13:52:08 08/26/2020 14:59:19 Lesion of endometrium 1212525812 9101 N85.9 This patient is a 40-year-ol d female who presents for follow-up on ultrasound findings. She has a cystic endometria l lesion. There is vascularit y to the endometriu m. We have agreed to evaluate the endometriu m with hysterosco py D&C. We reviewed her records in detail. We reviewed current and historical ultrasound results. We shared these images. Talked about observatio n. We talked about other treatment options. Talked about ovarian cyst. I described ovarian cyst etiology, natural history, treatment, observatio n. We will proceed with hysterosco py D&C. [id number] Hawk Mattson MD [place] [address] [address] 10/01/2020 16:14:43 10/02/2020 16:16:47 Lesion of endometrium 4443122131 9101 N85.9 this patient is a 40-year-ol d female with a cystic vascular lesion of the endometriu m. We have agreed to perform hysterosco py D&C to rule out severe disease. She understand s the risks, benefits and alternativ es. She has completed the informed consent process and is ready to proceed. [id number] Hawk Mattson MD [place] [address],[place] [address] 10/06/2020 10:40:46 10/06/2020 10:41:55 [id number] Hawk Mattson MD [place] [address],[place] [address] 10/13/2020 14:48:19 10/13/2020 18:05:14 Polyp of corpus uteri 65031516 N84.0 this patient is a 40-year-ol d female presents for follow-up after procedure. She had hysterosco py D& C. Polyps were removed. She tolerated the procedure well. She is recovering normally. She has no complaints . She is relieved to know the pathology is benign. She will follow up as needed. [id number] AMANDA Nichole [place] [address],[place] [address] 08/25/2021 16:36:18 08/26/2021 12:18:05 Screening for malignant neoplasm of breast [id number] Z12.39 Gynecologi c examination [id number] Z01.419 Z11.51 Suggested Calcium with Vitamin D 1200-1500m g daily. Patient advised to get an annual flu shot in the fall and she could obtain at [facility] or [facility] care [facility]. Also to obtain TDap vaccinatio n if you have not had one in the last 10 years. Recommend yearly mammograms . Encouraged monthly self breast exams. Encourage safe sexual practices, to use condoms and limit partners if not already in a monogamous relationsh ip. Engage in daily exercise of low impact aerobic exercise 45-60 minutes 4-5 times weekly. Avoid tobacco and illicit drugs as well as using moderation with alcohol intake less than 1-2 8 oz beverages daily. This lifestyle behavior pattern will lead to less health conditions and longer life span. If BMI greater than 25 weight watchers or dietary consult advised. All questions have been answered. Patient appears to understand informatio n, but if you have any questions please call or respond to this email. WWE, no issuesUsin g condoms for control. Would like to discuss control methods. She took plan B a few weeks ago and had light spotting after. She is due to start her period next week.All options discussed, she desires a non-hormon al option and would like to move forward with copper IUD.Risk of IUD including infection, IUD migration, perforatio n of uterus were discussed and accepted by patient. Risk of heavier/pa inful periods with the copper IUD was discussed. She will call on days 1-5 of her next cycle to schedule insertion. Hx of abnormal pap years ago, last pap 2020 normal.We discussed no pap needed today per guidelines , she desires pap to be collected. STI testing [facility] Contracept ion care management [id number] Z30.9 [id number] AMANDA Nichole [place] [address],[place] [address] 09/26/2021 17:03:04 09/26/2021 18:05:42 Contraception care management [id number] Z30.9 ParaGuard IUD attempted to be placed, Patient desired procedure to be over prior to IUD being successful ly placed in the uterus.She desire a POP for contracept ion.Discus sed all control options in great detail. Pt would like to start POP. She is aware of the risks and benefits. She has contraindi cations to use of OCP or other estrogen containing hormonal therapy. Pt will start her pills on the first sunday following the start of her period. She is aware it is not effective for control the first month. She is also aware of the importance of taking at the same time every day. Encouraged use of condoms as the pill does not protect against STD's. Will return in 3 months for med check. Consent was read and signed. Pt verbalized understand ing.RTC in 3 months for med check [id number] Michelle Casanova [facility] [address],[place] [address] 12/09/2021 15:50:17 12/09/2021 16:21:26 Vaginitis 34945012 N76.0 Suspect yeast/BVRx sent If sx's worsen or persist contact office. Time spent in visit is a total of 15 mins with at least 50% of visit consisting of counseling and review of plan of care. [id number] Marcy Stevens [facility] [address],[place] [address] 10/05/2022 10:58:24 10/05/2022 14:49:48 Gynecologic examination [id number] Z01.419 Z11.51 Suggested Calcium with Vitamin D 1200-1500m g daily. Patient advised to get an annual flu shot in the fall and she could obtain at [facility] or [facility] care clinic. Also to obtain TDap vaccinatio n if you have not had one in the last 10 years. Recommend yearly mammograms . Encouraged monthly self breast exams. Encourage safe sexual practices, to use condoms and limit partners if not already in a monogamous relationsh ip. Engage in daily exercise of low impact aerobic exercise 45-60 minutes 4-5 times weekly. Avoid tobacco and illicit drugs as well as using moderation with alcohol intake less than 1-2 8 oz beverages daily. This lifestyle behavior pattern will lead to less health conditions and longer life span. If BMI greater than 25 weight watchers or dietary consult advised. All questions have been answered. Patient appears to understand informatio n, but if you have any questions please call or respond to this email. WWEBC - declinedpa p updatedSTI testing added to papBlood STI panel declinedMa mmogram scheduledU TD with PCP we discussed the recent passing of her partner. Resources discussed, she has a plan to start counseling . Precaution s discussed. BP precaution s discussed. She has f/u with PCP scheduled [id number] [facility] [address],[place] [address] 10/31/2022 09:46:17 10/31/2022 10:26:19 Screening procedure 27138613 Z13.9 Atypical s quamous cells of undetermined significance on cervical Papanicolaou smear [id number] R87.610 See procedure notes.Post -procedure instructio ns reviewed with understand ing verbalized .Will contact with results & next steps in plan of care. Counseled on Pap/HPV guidelines /Testing/R esults with understand ing verbalized .All questions answered to patient satisfacti on. Booklet & additional resources regarding pap smear/HPV/ Pap results given. [email or web address]://ww w.cancer.g ov/types/c ervical/un derstandin g-abnormal -hpv-and-p ap-test-re sults/unde rstanding- cervical-c hanges.pdf R/P pap/hpv x 1yr [id number] Marcy Stevens RIYA [place] [address],[place] [address] 12/26/2022 09:52:36 12/26/2022 10:25:57 Contraception care management 648446354 Z30.9 Discussed all control options in great detail. Pt would like to start POP. She is aware of the risks and benefits. Pt will start her pills on the first day following the start of her period. She is aware it is not effective for control the first month. She is also aware of the importance of taking at the same time every day. Encouraged use of condoms as the pill does not protect against STD's. Will return in 3 months for med check. Consent was read and signed. Pt verbalized understand ing.slynd sample given - [id number], 4rx sent Venereal d isease screening 820956971 Z11.3 Vaginitis 62685947 N76.0 suspect yeastvagin itis / STI panel sentvulvar care guidelines discussed (avoid thongs, cotton underwear only, sleep with no underwear, water/fing ers to cleanse the vulva, avoid vaginal soaps/wipe s)rx sent, r/b/a reviewedRT C in 3-4 months for BC check or sooner if needed Time spent in visit is a total of 30 mins with at least 50% of visit consisting of counseling and review of plan of care. [id number] Michelle Casanova [facility] [address],[place] [address] 02/09/2023 09:27:38 02/09/2023 12:04:45 Vaginitis 44375896 N76.0 Suspect yeast on exam with the type of d/c present today.Rx sentDeclin ed std screenVagi nitis sent Discussed chronic yeast infections .We discussed Boric acid suppressiv e therapy x 3mos.Instr uctions given and will purchase this product to begin after done with yeast therapy.Wi ll continue to follow VCG's. Time spent in visit is a total of 30 mins with at least 50% of visit consisting of counseling and review of plan of care. Pain in pelvis 05043701 R10.2 Updated US to be completed for increase in pelvic pain during ovulation and cycle.Will complete a telehealth f/u to discuss. Adult heal th examination 509330039 Z00.00 Vitamin D deficiency [id number] 29183 E55.9 [id number] Yvonne Corrales [place] [address],[place] [address] 02/12/2023 09:57:06 02/12/2023 10:40:40 Pain in pelvis 29233632 R10.2 [id number] Michelle Casanova [facility] [address],[place] [address] 02/15/2023 16:15:52 02/15/2023 17:04:41 Pain in pelvis 95443985 R10.2 US was reviewed & POC discussed, Recommende d r/p 8wk TVUS and monitor at this time since symptoms have improved.U nderstandi ng was verbalized and no further questions. Total time of virtual-ZO OM visit/Tele -visit was approx 20 mins with >50% consisting of counseling , education of patient's plan of care. [id number] Mary Alatorre [place] [address],[place] [address] 04/06/2023 16:42:14 04/06/2023 18:43:14 Imaging result abnormal [id number] R93.89 [id number] AMANDA Nichole [place] [address],[place] [address] 11/08/2023 13:55:38 11/08/2023 15:14:57 Vaginal discharge 485070860 N89.8 exam today wnlvaginit is panel sentSTI screen declinedvu lvar care guidelines discussedR TC for WWE or sooner if needed Time spent in visit is a total of 20 mins with at least 50% of visit consisting of counseling and review of plan of care. [id number] AMANDA Nichole [place] [address],[place] [address] 04/17/2024 10:21:40 04/17/2024 10:53:46 Gynecologic examination 99712720 Z01.419 Z11.51 WWEBC - declinedPa p - done todaySTI screen - declinedMa mmogram - UTD, due next 5Colo n cancer screening - n/a, she is discussing with PCPRoutine labs - PCPRTC in 1 yr or sooner if needed Suggested Calcium with Vitamin D daily. Patient advised to get an annual flu shot in the fall and she could obtain at local pharmacy. Also to obtain TDap vaccinatio n if you have not had one in the last 10 years. Recommend yearly mammograms . Encouraged monthly self breast exams. Encourage safe sexual practices, to use condoms and limit partners if not already in a monogamous relationsh ip. Engage in regular exercise. Avoid tobacco and illicit drugs. This lifestyle behavior pattern will lead to less health conditions and longer life span. If BMI greater than 25 dietary consult advised. All questions have been answered. [id number] Hawk Mattson MD [place] [address],[place] [address] 05/30/2024 15:23:30 05/30/2024 16:57:19 Screening procedure 73422769 Z13.9 Abnormal c ervical Papanicolaou smear 948933571 R87.619 colposcopy was performed. Satisfacto ry. Biopsy performed. Tolerated well. To follow-up Health Concerns Section Related Observation LastModified by Organization Detai ls LastModified Time None Recorded Concern Status LastModified by Organization Details LastModified Time None Recorded Advance Directives Directive None Recorded Payers Encounter Date Sequence Insurance Name Policy Number Policy Rojas Covered Member ID Rojas Member ID Guarantor Name 02/15/2023 1 [facility] [id number] Holly A Topal [id number] Holly A Topal 04/06/2023 1 [facility] [id number] Holly A Topal [id number] Holly A Topal 11/08/2023 1 [facility] - 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 (PPO) Holly A Topal [id number] Holly A Topal 11/08/2023 1 [facility] [id number] Holly A Topal [id number] Holly A Topal 04/17/2024 1 [facility] - 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 (PPO) Holly A Topal [id number] Holly A Topal 05/30/2024 1 [facility] - 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 ([employer]) Holly A Topal [id number] Holly A Topal Notes Date Note Type Note Provider Name and Address Organization Details Recorded Time 02/15/2023 text/html Here today for S follow up and POC. AMANDA Solares- [address], [place], [address], [facility] 02/15/2023 16:52:46 11/08/2023 text/html 43yopresents for evaluation of vaginal dischargenoticed thick/white discharge prior to her LMP, symptoms have since resolvedwould like testing for BV/yeastLMP 11/01/2023 neg d/c, odors, itchingneg pelvic painneg n/v/fneg flu-like symptoms AMANDA Nichole [address], [place], [address], [facility] 11/08/2023 15:14:01 04/17/2024 text/html Annual GYNReport ed bypatient.Menstrual cycle:Normal menses Urinary symptoms:No hematuria; No incontinence Vulva:No genital lesion Vagina:Normal vaginal discharge Breast:No breast pain; No breast lump; No nipple discharge Sexual complaints:No sexual complaints; No pain during intercourse; Normal libido Menopausal Symptoms:No menopausal symptoms; Normal vaginal lubrication Psychological symptoms:No depression; No anxiety; No PMDD Preventive measures:Encourage self breast examination; Encourage regular exercise; Encourage no tobacco use; Encourage regular mammograms starting age 40; Mammogram performed within the past yearNotes:43yo wwelast pap 09/2022 : ascus , HPV (+)colpo 10/2022 : no biopsy donemammogram UTD 11/2023 AMANDA Nichole [address], [place], [address], [facility] 04/17/2024 10:47:24 05/30/2024 text/html This patient is a 43-year-old female presents for colposcopic examination. The procedure was explained to the patient in detail. She understands the procedure. She understands the risks, benefits, and alternatives. She has completed the informed consent process and is ready to proceed. Hawk Mattson MD [address], [place], [address], [facility] 05/30/2024 16:25:17 OBGyn Episode Ob Episode Information Episode Created Date Number of Fetuses Patient Bloodtype Patient rh Status Prepregnancy Weight lbs Domestic Partner Domestic Partner Phone Father Name Forklift Supervisor Status 08/25/19 20 1 DELETED Ronny Calculation Initial Ronny Date Initial Exam Date Initial Exam Provider Initial Ultrasound Date Last Menstrual Period Date Ultra Sound Weeks Gestation 0 Eighteen To Twenty Week Ronny Update Ultra Sound Date Fundal Height At Umbil Quickening Date Ultra Sound Latest Weeks Gestation Final Ronny Confirmed By Final Ronny Confirmed Date Final Ronny Date Ultra Sound Latest Days Gestation 0 0 Menstrual History Last Menstrual Date Menses Monthly On Bcp Conception Prior Menses Frequency Hcg Plus Date Menarche Onset Age Delivery Information Delivery Date Delivery Type Labor Anesthesia Weeks Gestation Incision Type Labor Labor Length Hrs Delivered By Post Complications Tubal Sterilization Discharge Date Comments 6 Discharge Information Feeding Method Contraceptive Method Maternal HG B and HCT Levels Ob Episode Information Episode Created Date Number of Fetuses Patient Bloodtype Patient rh Status Prepregnancy Weight lbs Domestic Partner Domestic Partner Phone Father Name Forklift Supervisor Status 08/25/19 20 1 CLOSED Fetus Data First Name Last Name Admitted to NICU Weight (g) Sex Living Outcome Pediatric Complications Fetus ID Race Codes Race Delivery Type , Induced 1114 Ronny Calculation Initial Ronny Date Initial Exam Date Initial Exam Provider Initial Ultrasound Date Last Menstrual Period Date Ultra Sound Weeks Gestation 0 Eighteen To Twenty Week Ronny Update Ultra Sound Date Fundal Height At Umbil Quickening Date Ultra Sound Latest Weeks Gestation Final Ronny Confirmed By Final Ronny Confirmed Date Final Ronny Date Ultra Sound Latest Days Gestation 0 0 Menstrual History Last Menstrual Date Menses Monthly On Bcp Conception Prior Menses Frequency Hcg Plus Date Menarche Onset Age Delivery Information Delivery Date Delivery Type Labor Anesthesia Weeks Gestation Incision Type Labor Labor Length Hrs Delivered By Post Complications Tubal Sterilization Discharge Date Comments 6 Discharge Information Feeding Method Contraceptive Method Maternal HG B and HCT Levels Ob Episode Information Episode Created Date Number of Fetuses Patient Bloodtype Patient rh Status Prepregnancy Weight lbs Domestic Partner Domestic Partner Phone Father Name Forklift Supervisor Status 08/25/19 20 1 CLOSED Fetus Data First Name Last Name Admitted to NICU Weight (g) Sex Living Outcome Pediatric Complications Fetus ID Race Codes Race Delivery Type 2976.47 [id number] F Full Term 1116 Vaginal Delivery Ronny Calculation Initial Ronny Date Initial Exam Date Initial Exam Provider Initial Ultrasound Date Last Menstrual Period Date Ultra Sound Weeks Gestation 0 Eighteen To Twenty Week Ronny Update Ultra Sound Date Fundal Height At Umbil Quickening Date Ultra Sound Latest Weeks Gestation Final Ronny Confirmed By Final Ronny Confirmed Date Final Ronny Date Ultra Sound Latest Days Gestation 0 0 Menstrual History Last Menstrual Date Menses Monthly On Bcp Conception Prior Menses Frequency Hcg Plus Date Menarche Onset Age Delivery Information Delivery Date Delivery Type Labor Anesthesia Weeks Gestation Incision Type Labor Labor Length Hrs Delivered By Post Complications Tubal Sterilization Discharge Date Comments 9 40 Discharge Information Feeding Method Contraceptive Method Maternal HG B and HCT Levels Ob Episode Information Episode Created Date Number of Fetuses Patient Bloodtype Patient rh Status Prepregnancy Weight lbs Domestic Partner Domestic Partner Phone Father Name Forklift Supervisor Status 08/25/19 1 CLOSED Fetus Data First Name Last Name Admitted to NICU Weight (g) Sex Living Outcome Pediatric Complications Fetus ID Race Codes Race Delivery Type 4706.01 7 M Full Term 1117 Vaginal Delivery Ronny Calculation Initial Ronny Date Initial Exam Date Initial Exam Provider Initial Ultrasound Date Last Menstrual Period Date Ultra Sound Weeks Gestation 0 Eighteen To Twenty Week Ronny Update Ultra Sound Date Fundal Height At Umbil Quickening Date Ultra Sound Latest Weeks Gestation Final Ronny Confirmed By Final Ronny Confirmed Date Final Ronny Date Ultra Sound Latest Days Gestation 0 0 Menstrual History Last Menstrual Date Menses Monthly On Bcp Conception Prior Menses Frequency Hcg Plus Date Menarche Onset Age Delivery Information Delivery Date Delivery Type Labor Anesthesia Weeks Gestation Incision Type Labor Labor Length Hrs Delivered By Post Complications Tubal Sterilization Discharge Date Comments 5 40 Discharge Information Feeding Method Contraceptive Method Maternal HG B and HCT Levels Ob Episode Information Episode Created Date Number of Fetuses Patient Bloodtype Patient rh Status Prepregnancy Weight lbs Domestic Partner Domestic Partner Phone Father Name Forklift Supervisor Status 08/25/19 20 1 CLOSED Fetus Data First Name Last Name Admitted to NICU Weight (g) Sex Living Outcome Pediatric Complications Fetus ID Race Codes Race Delivery Type 3430.06 [id number] F Full Term 1120 Vaginal Delivery Ronny Calculation Initial Ronny Date Initial Exam Date Initial Exam Provider Initial Ultrasound Date Last Menstrual Period Date Ultra Sound Weeks Gestation 0 Eighteen To Twenty Week Ronny Update Ultra Sound Date Fundal Height At Umbil Quickening Date Ultra Sound Latest Weeks Gestation Final Ronny Confirmed By Final Ronny Confirmed Date Final Ronny Date Ultra Sound Latest Days Gestation 0 0 Menstrual History Last Menstrual Date Menses Monthly On Bcp Conception Prior Menses Frequency Hcg Plus Date Menarche Onset Age Delivery Information Delivery Date Delivery Type Labor Anesthesia Weeks Gestation Incision Type Labor Labor Length Hrs Delivered By Post Complications Tubal Sterilization Discharge Date Comments 8 40 shoulder dystocia Discharge Information Feeding Method Contraceptive Method Maternal HG B and HCT Levels Ob Episode Information Episode Created Date Number of Fetuses Patient Bloodtype Patient rh Status Prepregnancy Weight lbs Domestic Partner Domestic Partner Phone Father Name Forklift Supervisor Status 08/25/19 20 1 DELETED Ronny Calculation Initial Ronny Date Initial Exam Date Initial Exam Provider Initial Ultrasound Date Last Menstrual Period Date Ultra Sound Weeks Gestation 0 Eighteen To Twenty Week Ronny Update Ultra Sound Date Fundal Height At Umbil Quickening Date Ultra Sound Latest Weeks Gestation Final Ronny Confirmed By Final Ronny Confirmed Date Final Ronny Date Ultra Sound Latest Days Gestation 0 0 Menstrual History Last Menstrual Date Menses Monthly On Bcp Conception Prior Menses Frequency Hcg Plus Date Menarche Onset Age Delivery Information Delivery Date Delivery Type Labor Anesthesia Weeks Gestation Incision Type Labor Labor Length Hrs Delivered By Post Complications Tubal Sterilization Discharge Date Comments 9 Discharge Information Feeding Method Contraceptive Method Maternal HG B and HCT Levels Ob Episode Information Episode Created Date Number of Fetuses Patient Bloodtype Patient rh Status Prepregnancy Weight lbs Domestic Partner Domestic Partner Phone Father Name Forklift Supervisor Status 08/25/19 20 1 CLOSED Fetus Data First Name Last Name Admitted to NICU Weight (g) Sex Living Outcome Pediatric Complications Fetus ID Race Codes Race Delivery Type , Induced 1115 Ronny Calculation Initial Ronny Date Initial Exam Date Initial Exam Provider Initial Ultrasound Date Last Menstrual Period Date Ultra Sound Weeks Gestation 0 Eighteen To Twenty Week Ronny Update Ultra Sound Date Fundal Height At Umbil Quickening Date Ultra Sound Latest Weeks Gestation Final Ronny Confirmed By Final Ronny Confirmed Date Final Ronny Date Ultra Sound Latest Days Gestation 0 0 Menstrual History Last Menstrual Date Menses Monthly On Bcp Conception Prior Menses Frequency Hcg Plus Date Menarche Onset Age Delivery Information Delivery Date Delivery Type Labor Anesthesia Weeks Gestation Incision Type Labor Labor Length Hrs Delivered By Post Complications Tubal Sterilization Discharge Date Comments 1 Discharge Information Feeding Method Contraceptive Method Maternal HG B and HCT Levels Ob Episode Information Episode Created Date Number of Fetuses Patient Bloodtype Patient rh Status Prepregnancy Weight lbs Domestic Partner Domestic Partner Phone Father Name Forklift Supervisor Status 08/25/19 20 1 DELETED Ronny Calculation Initial Ronny Date Initial Exam Date Initial Exam Provider Initial Ultrasound Date Last Menstrual Period Date Ultra Sound Weeks Gestation 0 Eighteen To Twenty Week Ronny Update Ultra Sound Date Fundal Height At Umbil Quickening Date Ultra Sound Latest Weeks Gestation Final Ronny Confirmed By Final Ronny Confirmed Date Final Ronny Date Ultra Sound Latest Days Gestation 0 0 Menstrual History Last Menstrual Date Menses Monthly On Bcp Conception Prior Menses Frequency Hcg Plus Date Menarche Onset Age Delivery Information Delivery Date Delivery Type Labor Anesthesia Weeks Gestation Incision Type Labor Labor Length Hrs Delivered By Post Complications Tubal Sterilization Discharge Date Comments 9 Discharge Information Feeding Method Contraceptive Method Maternal HG B and HCT Levels Ob Episode Information Episode Created Date Number of Fetuses Patient Bloodtype Patient rh Status Prepregnancy Weight lbs Domestic Partner Domestic Partner Phone Father Name Forklift Supervisor Status 08/25/19 20 1 CLOSED Fetus Data First Name Last Name Admitted to NICU Weight (g) Sex Living Outcome Pediatric Complications Fetus ID Race Codes Race Delivery Type , Induced 1119 Ronny Calculation Initial Ronny Date Initial Exam Date Initial Exam Provider Initial Ultrasound Date Last Menstrual Period Date Ultra Sound Weeks Gestation 0 Eighteen To Twenty Week Ronny Update Ultra Sound Date Fundal Height At Umbil Quickening Date Ultra Sound Latest Weeks Gestation Final Ronny Confirmed By Final Ronny Confirmed Date Final Ronny Date Ultra Sound Latest Days Gestation 0 0 Menstrual History Last Menstrual Date Menses Monthly On Bcp Conception Prior Menses Frequency Hcg Plus Date Menarche Onset Age Delivery Information Delivery Date Delivery Type Labor Anesthesia Weeks Gestation Incision Type Labor Labor Length Hrs Delivered By Post Complications Tubal Sterilization Discharge Date Comments 0 Discharge Information Feeding Method Contraceptive Method Maternal HG B and HCT Levels Ob Episode Information Episode Created Date Number of Fetuses Patient Bloodtype Patient rh Status Prepregnancy Weight lbs Domestic Partner Domestic Partner Phone Father Name Forklift Supervisor Status 08/25/19 20 1 CLOSED Fetus Data First Name Last Name Admitted to NICU Weight (g) Sex Living Outcome Pediatric Complications Fetus ID Race Codes Race Delivery Type , Induced [id number] Ronny Calculation Initial Ronny Date Initial Exam Date Initial Exam Provider Initial Ultrasound Date Last Menstrual Period Date Ultra Sound Weeks Gestation 0 Eighteen To Twenty Week Ronny Update Ultra Sound Date Fundal Height At Umbil Quickening Date Ultra Sound Latest Weeks Gestation Final Ronny Confirmed By Final Ronny Confirmed Date Final Ronny Date Ultra Sound Latest Days Gestation 0 0 Menstrual History Last Menstrual Date Menses Monthly On Bcp Conception Prior Menses Frequency Hcg Plus Date Menarche Onset Age Delivery Information Delivery Date Delivery Type Labor Anesthesia Weeks Gestation Incision Type Labor Labor Length Hrs Delivered By Post Complications Tubal Sterilization Discharge Date Comments 6 D&C for retained product after taking pill Discharge Information Feeding Method Contraceptive Method Maternal HG B and HCT Levels
[2024-08-19 06:10] VITALS: BP 117/82; PULSE 93; RESP 16; TEMP 36.6; O2SAT 100
[2024-08-19] MEDS: ACETAMINOPHEN 500 MG TABLET 1000 MG PO (06:15)
[2024-08-19] MEDS: LACTATED RINGERS 1,000 ML 30 ML IV CONT (06:20)
--- NOTE | 2024-08-19 06:37 | P.PNAN_ITS ---
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 [facility] Past Medical History Medical History Asthma exercise induced Anxiety Surgical History Surgical History History of breast augmentation Family History Family History Mother Breast cancer Social History Social History Smoking packs per day: 0.5 Smoking cigarettes per day: 10.0 Years smoked: 6 Smoking pack-years: 3.00 Smoking status: Former smoker Tobacco type: cigarettes Smoking end date: 10/22/23 Additional smoking assessment comments: smoked for about 6 years in and for about 3 months in 2023 Alcohol intake: current Drinks per week: 14 Alcohol use details: 2 glasses of wine a day Substance use: never Substance use type: does not use Living arrangements: with family Additional living arrangements comments: CHILDREN Gender identity (if verbalized by the patient): Female Sexual Orientation (if Verbalized by the Patient): Straight or Heterosexual Spiritual care concerns: No Anes - Eval Final PreProcedure Day of Procedure 08/19/24 06:37 Patient weight: normal Heart: regular rate and rhythm Lungs: clear to auscultation Airway: Mallampati scale class II Neurological: alert and oriented Last oral intake: >/= 8 hours ASA classification: II Emergent: no Anesthetic plan: proceed Anesthesia type and monitoring: general GIVS and standard monitoring Results Review: All pre-operative results and documents have been reviewed as part of the pre- operative evaluation. Informed Consent: The patient's anesthetic plan and its attendant risks and benefits were discussed with the patient/family/POA. Questions were solicited and answers provided to the satisfaction of the patient/family/POA.
[2024-08-19 06:41] LABS: BEDSIDEPREGUCG Negative (Negative)
--- NOTE | 2024-08-19 07:21 | P.HP_ITS ---
H&P: HPI History of Present Illness Date/Time: 08/19/24 07:21 Chief Complaint: Cervical dysplasia Narrative: 44-year-old female with cervical dysplasia who presents for LEEP procedure. We have agreed to perform the procedure. She understands risks, benefits, and alternatives. She has completed informed consent process is ready to proceed. The patient understands the details of the procedure. The procedure has been explained in detail. She understands the risks. She understands that injuries may occur that result in hospitalization, more surgery, and severe illness. She understands risk of hemorrhage and infection. She denies any chest pain or shortness of breath. She denies any nausea, vomiting, fever, chills. Review of Systems Review of Systems: All systems reviewed & are unremarkable except as noted in HPI and below Constitutional: Constitutional: Denies chills, Denies fatigue, Denies fever(s) and Denies weakness Eyes: Eyes: Denies blurry vision, Denies change in vision, Denies loss of peripheral vision, Denies loss of vision, Denies other visual disturbances and Denies eye pain ENT: Denies vertigo, Denies dizziness, Denies hearing loss, Denies mouth pain, Denies nasal obstruction, Denies neck mass and Denies neck pain Cardiovascular: Cardiovascular: Denies chest pain, Denies diaphoresis, Denies syncope, Denies leg edema and Denies dyspnea Respiratory: Respiratory: Denies chest congestion, Denies cough, Denies hemoptysis, Denies dyspnea and Denies wheezing Gastrointestinal: Gastrointestinal: Denies abdominal pain, Denies constipation, Denies diarrhea, Denies nausea and Denies vomiting Genitourinary: Genitourinary: Denies hematuria, Denies change in libido, Denies nocturia, Denies genital lesions, Denies flank pain and Denies urinary urgency Musculoskeletal: Musculoskeletal: Denies abnormal gait, Denies back pain, Denies myalgias, Denies arthralgias, Denies joint swelling, Denies muscle weakness and Denies neck pain Integumentary/Breasts: Skin/Breast: Denies swelling, Denies breast pain, Denies breast mass, Denies dry skin, Denies nipple discharge, Denies unusual bruising and Denies jaundice Neurologic: Denies Neuro-related abnormal movements, Denies Abnormal speech present, Denies abnormal gait, Denies behavioral changes, Denies confusion, Denies vertigo, Denies dizziness, Denies syncope, Denies loss of vision, Denies memory loss, Denies convulsions and Denies weakness Psychiatric: Psychiatric: Denies abnormal sleep pattern, Denies behavioral changes, Denies change in libido, Denies confusion, Denies depression, Denies anhedonia and Denies memory loss Endocrine: Endocrine: Reports no additional endocrine complaints, Denies change in libido and Denies fatigue Hematologic/Lymphatic: Hematologic/Lymphatic: Reports no additional hematologic/lymphatic complaints Allergic/Immunologic: Allergic/Immunologic: Reports no additional allergic/immunologic complaints and Denies wheezing PMFSH Past Medical History Medical History Asthma exercise induced Anxiety Surgical History Surgical History History of breast augmentation Family History Family History Mother Breast cancer Social History Social History Smoking packs per day: 0.5 Smoking cigarettes per day: 10.0 Years smoked: 6 Smoking pack-years: 3.00 Smoking status: Former smoker Tobacco type: cigarettes Smoking end date: 10/22/23 Additional smoking assessment comments: smoked for about 6 years in and for about 3 months in 2023 Alcohol intake: current Drinks per week: 14 Alcohol use details: 2 glasses of wine a day Substance use: never Substance use type: does not use Living arrangements: with family Additional living arrangements comments: CHILDREN Gender identity (if verbalized by the patient): Female Sexual Orientation (if Verbalized by the Patient): Straight or Heterosexual Spiritual care concerns: No Meds Home Medications and Allergies Home Medications ?Medication ?Instructions ?Recorded ?Confirmed ?Type clonazepam 0.5 mg tablet 0.5 mg PO BID PRN anxiety 08/08/24 08/08/24 History Allergies Allergy/AdvReac Type Severity Reaction Status Date / Time No Known Allergies Allergy Verified 08/19/24 07:10 Vital Signs Vital Signs - 24 hr 08/19/24 06:10 Temperature 97.8 F Pulse Rate 93 Respiratory Rate 16 Blood Pressure 117/82 Pulse Oximetry 100 Oxygen Delivery Room Air Exam Const: General: cooperative, healthy appearing, comfortable and no acute distress Orientation/consciousness: oriented to person, oriented to place and oriented to time HENMT: Head: normal to inspection Ears: external ears normal Face/Nose/Sinus: Normal external nose present and normal facial exam Face and sinus: normal facial exam Eyes: General: appearance normal, both eyes and all related structures Neck: Neck: normal visual inspection, trachea midline and supple Resp: Auscultation: clear to auscultation bilaterally, no crackles, no rales, no rhonchi and no wheezes Cardio: Rate: regular rate Rhythm: regular rhythm Heart sounds: no click, no murmurs and no rubs GI: GI Palp: No abdominal tenderness, No Soft to palpation, No Tenderness to palpation present (GI) and No Palpable mass present Auscultation: normal bowel sounds Skin: General skin exam: normal color and no rashes or lesions noted Neuro: General: oriented to person, oriented to place and oriented to time Extrem: General: normal to inspection, no joint enlargement, no clubbing, cyanosis or edema, no pedal edema and no calf tenderness Psych: Appearance: grossly normal Mental Status: mental status grossly normal Speech and movement: Normal speech and movement present Assessment and Plan Assessment and plan (1) Severe cervical dysplasia: Code(s): D06.9 - Carcinoma in situ of cervix, unspecified Status: Acute Plan 44-year-old female with cervical dysplasia who presents for LEEP procedure. We have agreed to perform the procedure. She understands risks, benefits, and alternatives. She has completed informed consent process is ready to proceed
--- NOTE | 2024-08-19 07:23 | WPDHPUPDATE1 ---
History and Physical Update Update Date/Time: 08/19/24 07:23 History and Physical has been reviewed, including an updated exam of the patient. There are NO changes in the patient's condition. Risks, benefits, and alternatives have been discussed and questions answered. Patient agrees to proceed with procedure.
[2024-08-19] MEDS: LIDO 1%/EPINEPHRINE 1:100,000 20 ML VIAL 10 ML INFILTRATE (07:37)
[2024-08-19 07:48] VITALS: BP 102/51; PULSE 87; RESP 14; O2SAT 97
--- NOTE | 2024-08-19 07:57 | WPDHPUPDATE1 ---
History and Physical Update Update Date/Time: 08/19/24 07:57 History and Physical has been reviewed, including an updated exam of the patient. There are NO changes in the patient's condition. Risks, benefits, and alternatives have been discussed and questions answered. Patient agrees to proceed with procedure.
--- NOTE | 2024-08-19 08:04 | WPDHPUPDATE1 ---
History and Physical Update Update Date/Time: 08/19/24 08:04 History and Physical has been reviewed, including an updated exam of the patient. There are NO changes in the patient's condition. Risks, benefits, and alternatives have been discussed and questions answered. Patient agrees to proceed with procedure.
--- NOTE | 2024-08-19 08:07 | W.PM.PROC2 ---
Procedure Note - Detailed Date of Procedure 08/19/24 Pre-op Diagnosis high grade squamous intraepithelial lesion on cervix Post-op Diagnosis Same Procedure Performed LEEP Surgeon Hawk Mattson MD Anesthesia MAC Indications Cervical cancer prevention Findings normal appearing cervix, grossly Description of Procedure the patient was taken to the operating room. She was prepped and draped in the dorsal lithotomy position after induction of MAC anesthesia. A coated speculum was placed in the vagina. The cervix was injected at 3 and 9:00 a.m. with lidocaine. A electrode loop was used to excise the central portion of the cervix in 1 motion. This was from 9:00 to 3:00. After excision of that tissue the cut surface was cauterized with ball cautery. The Monsel solution was applied to the cut surfaces well. The speculum was removed. The patient tolerated the procedure well. She was seeing cover stable condition. Estimated Blood Loss -5.0 Packing No Pathology Yes Complications No immediate complications Condition Stable Disposition Same day
[2024-08-19 08:15] VITALS: BP 99/51; PULSE 75
[2024-08-19 08:41] VITALS: BP 99/55; PULSE 76; RESP 16
== END 2024-08-19 08:49 | disposition home or self-care (01) ==
PROVIDERS: Visit Provider Obstetrics & Gynecology
PROC: 0UBC7ZZ Excision of Cervix, Via Natural or Artificial Opening (ICD-10-PCS; CPT 57522; principal; 2024-08-19 07:30)
DX: N87.9 Dysplasia of cervix uteri, unspecified (principal); J45.909 Unspecified asthma, uncomplicated; F41.9 Anxiety disorder, unspecified; Z98.890 Other specified postprocedural states; Z87.891 Personal history of nicotine dependence; Z80.3 Family history of malignant neoplasm of breast
CPT/HCPCS: 57522; 88307; A9270; J2003; J2004; J2250; J2405; J2704; J3010; J7120

== ENCOUNTER 2024-08-30 21:20 | Emergency (ER) | payer OTHER, SELFPAY ==
--- OUTSIDE RECORDS SUMMARY | 2024-08-30 21:22 | XMS_ITS | Clinical Summary ---
Author Organization [facility] Address [address] [place] [address] Phone Care Team Providers Care Machine Puller And Laster Name Role Phone Joe Manning MD Primary Care Provider [phone] Medications No known medications Active Problems No known active problems Immunizations Immunization Administration Dates Next Due ([employer])(12 YR UP) COVID-19 VACCINE - EMERGENCY USE AUTHORIZATION, MRNA, [id number](PF) 30 MCG/0.3 ML IM SUSP 06/10/2020,05/21/2020 Social [...] patient's age to complete this topic Insurance [facility] [id number] Member Subscriber Plan / Payer (Ef fective 2020-Present) Name:Kia Moya Relation to Subscriber:Not on file Name:KIA MOYA Date of :1980 (Home) Address: [address] [place] [address] [address] [place] [address] Payer ID:[id number] (NAIC) Type:[facility] Address: [address] [place] [address] [facility] CHOICE PLUS Care Teams Machine Puller And Laster Relationship Specialty Start Date End Date Joe Manning MD PCP - General Family Practice 04/24/19
--- OUTSIDE RECORDS SUMMARY | 2024-08-30 21:22 | XMS_ITS | Clinical Summary ---
Author Organization [facility] Address [address] [place] [address] Care Team Providers Care Literacy Consultant Name Role Phone Katharine Matos NP Primary Care Provider [phone] Allergies Active Allergy Reactions Criticality Noted Date [...] 08/31/2023 Assessment & Plan (03/04/2024 9:42 AM WASHING TUB OPERATOR): Patient's son about 6 months ago, she [...] on file Legal Sex Female 7:05 AM WASHING TUB OPERATOR Gender Identity Not on file Sexual Orientation Not on file Obstetrics History Last Filed Vital Signs Vital Sign Reading Time Taken Comments Blood Pressure 110/70 03/04/2024 8:27 AM WASHING TUB OPERATOR Pulse 84 03/04/2024 8:27 AM WASHING TUB OPERATOR Temperature 36.8 C (98.2 F) 03/04/2024 8:27 AM WASHING TUB OPERATOR Respiratory Rate - - Oxygen Saturation 98% 03/04/2024 8:27 AM WASHING TUB OPERATOR Inhaled Oxygen Concentration - - Weight 59.9 kg (132 lb) 03/04/2024 8:27 AM WASHING TUB OPERATOR Height 165.1 cm (5' 5 ) 03/04/2024 8:27 AM WASHING TUB OPERATOR Body Mass Index 21.97 03/04/2024 8:27 AM WASHING TUB OPERATOR Plan of Treatment Health Maintenance Due Date [...] Relevant to Health Maintenance Insurance [address] [place] [place] [id number] [facility] [id number] [place] [address] CHOICE PLUS [facility] [id number] Care Teams Literacy Consultant Relationship Specialty Start Date End Date Katharine Matos NP [address] [address] PCP - General Family Medicine 03/04/24
--- OUTSIDE RECORDS SUMMARY | 2024-08-30 21:22 | XMS_ITS | Referral Summary ---
Author Organization [facility] Address [address] [place] [address] Care Team Providers Care Regulatory Affairs Portfolio Leader Name Role Phone Katharine Matos NP Primary Care Provider [phone] Allergies Active Allergy Reactions Criticality Noted Date [...] 08/31/2023 Assessment & Plan (03/04/2024 9:42 AM BIN OPERATOR): Patient's son about 6 months ago, [...] on file Legal Sex Female 7:05 AM BIN OPERATOR Gender Identity Not on file Sexual Orientation Not on file Last Filed Vital Signs Vital Sign Reading Time Taken Comments Blood Pressure 110/70 03/04/2024 8:27 AM BIN OPERATOR Pulse 84 03/04/2024 8:27 AM BIN OPERATOR Temperature 36.8 C (98.2 F) 03/04/2024 8:27 AM BIN OPERATOR Respiratory Rate - - Oxygen Saturation 98% 03/04/2024 8:27 AM BIN OPERATOR Inhaled Oxygen Concentration - - Weight 59.9 kg (132 lb) 03/04/2024 8:27 AM BIN OPERATOR Height 165.1 cm (5' 5 ) 03/04/2024 8:27 AM BIN OPERATOR Body Mass Index 21.97 03/04/2024 8:27 AM BIN OPERATOR Plan of Treatment Not on file Procedures [...] to Health Maintenance [place] [address] [place] [id number] [employer] [place] [id number] [place] [address] [place] [address] [address] [place] [place] [address] [facility] [place] [address] [place] [address] [employer] [id number] Care Teams Regulatory Affairs Portfolio Leader Relationship Specialty Start Date End Date Katharine Matos NP [address] [facility] [address] [place] [address] PCP - General Family Medicine 03/04/24
--- OUTSIDE RECORDS SUMMARY | 2024-08-30 21:23 | XMS_ITS | Clinical Summary ---
Author Organization [email or web address] Address [address] [facility] [place] [address] Care Team Providers Care Tower Equipment Installer Name Role Phone Unavailable Primary Care Provider Unavailabl e Source Comments [email or web address],non-owned Affiliates and Associated Physician Practices is amultiple site organization consisting of ambulatory clinics and hospital sitesin [place], [place], [place]. This disclosure is being madepursuant to the Care Everywhere program and may not contain all information available regarding this patient. Last updated 18.[email or web address] Allergies No known active allergies Medications * [...] on file Legal Sex Female 6:06 PM GEOMORPHOLOGY TEACHER Gender Identity Not on file Sexual Orientation Not on file Last Filed Vital Signs Vital Sign Reading Time Taken Comments Blood Pressure 122/80 05/13/2019 6:05 PM GEOMORPHOLOGY TEACHER Pulse 103 05/13/2019 6:05 PM GEOMORPHOLOGY TEACHER Temperature 37.3 C (99.2 F) 05/13/2019 6:05 PM GEOMORPHOLOGY TEACHER Respiratory Rate 16 05/13/2019 6:05 PM GEOMORPHOLOGY TEACHER Oxygen Saturation 98% 05/13/2019 6:05 PM GEOMORPHOLOGY TEACHER Inhaled Oxygen Concentration - - Weight 55.8 kg (123 lb) 05/13/2019 6:05 PM GEOMORPHOLOGY TEACHER Height 163.8 cm (5' 4.5 ) 05/13/2019 6:05 PM GEOMORPHOLOGY TEACHER Body Mass Index 20.79 05/13/2019 6:05 PM GEOMORPHOLOGY TEACHER Plan of Treatment Health Maintenance Due Date Last Done Comments LIPID TESTING 1980 MAMMOGRAM 1980 PAP SMEAR 1980 HIV SCREENING 1995 HEPATITIS C SCREENING 06/10/1998 DTAP/TDAP/TD VACCINES (1 - Tdap) 1999 HEPATITIS B VACCINE (1 of 3 - 19+ 3-dose series) 1999 PNEUMOCOCCAL VACCINE (1 of 2 - PCV) 1999 COVID-19 VACCINE (1 - 2023-2 5 season) 2023 DEPRESSION SCREENING 04/23/2024 INFLUENZA VACCINE (Season Ended) 2024 02/19/20 20 ZOSTER VACCINE (1 of 2) 2030 HIB [...] patient's age to complete this topic Insurance [facility] [employer] SELF PAY NO INSURANCE Member Subscriber Plan / Payer (Ef fective for All Dates) Name:Holly Moya Member ID:Not on file Relation to Subscriber:Not on file Name:HOLLY MOYA Subscriber ID:Not on file (Home) Address: [address] [place] [address] Payer ID:Not on file Group ID:Not on file Type:Self Pay Address: [place], [place]
--- OUTSIDE RECORDS SUMMARY | 2024-08-30 21:23 | XMS_ITS | Data Portability ---
Author Organization [facility] [employer], Main Office Address [address] [place] [address] Assessment No assessment recorded. Plan of Treatment Reminders Order Date Submit Date Provider Last Modified By Organization Details Last Modified Time Details Appointments None recorded. Lab C-reactive protein, quantitativ e, serum or plasma [address] (Lab), [address] [place], [address], 3 12:13:49 ESR (erythrocyt e sedimentati on rate), blood [address] (Lab), [address] [place], [address], 3 12:13:49 rf (rheumatoid factor), serum [address] (Lab), [address] [place], [address], 3 12:13:49 KRISTEN (antinuclea r antibodies) screen, serum [address] (Lab), [address] [place], [address], 3 12:13:50 TSH, serum or plasma [address] (Lab), [address] [place], [address], 3 12:13:50 Referral None recorded. Procedures None recorded. Surgeries None recorded. Imaging None recorded. Medication Orders triamcinolo ne acetonide 0.1 % topical cream 2022 023 LIBRADO [id number], [address], [place], [place], [id number], 3 12:39:09 Medrol (Des) 4 mg tablets in a dose pack 2022 023 [email or web address] [facility] #[id number], [address], [place], [place], [id number], 4 10:09:51 Patient TargetsNo targets recorded. Patient InstructionsNo instructions recorded. Reason for Referral None Reported. Results Created Date Observation Date Name Description Value Unit Range Abnormal Flag Note LastModifiedBy Organization Detail LastModifiedTime 10/14/1910/13/2022 MAMMO , scree michael, bilat eral No observ ation record ed. [email or web address] [facility] [address], [place], [address], 10/17/2022 09:10:35 11/14/19 23 11/13/2022 MAMMO , diagn ostic , digit al, unila teral No observ ation record ed. [email or web address] [facility] [address], [place], [address], 11/13/2022 16:35:14 11/14/19 23 11/13/2022 danny GAGE, unila teral No observ ation record ed. [address], [place], [address], 11/13/2022 16:35:15 06/19/19 24 06/19/2023 , danny calderon, unila teral No observ ation record ed. [email or web address] [facility] [address], [place], [address], 06/20/2023 11:47:08 06/19/19 24 06/19/2023 MAMMO , diagn ostic , digit al, unila teral No observ ation record ed. [email or web address] [facility] [address], [place], [address], 06/20/2023 11:47:08 Result Notes None recorded. Problems Name Problem SNOMED Code Status Onset Date Resolution Date Notes Provider Name and Address Organization Details Recorded Time Varicose veins of pelvis 78239651 Active Not Available [facility] 3 09:17:34 Insomnia 820944963 Active Not Available [facility] 3 09:17:34 Anxiety disorder 602710506 Active Not Available [facility] 3 09:17:34 Pain in pelvis 92488267 Active Not Available [facility] 3 09:17:34 Lymphadenopat hy 32929286 Active Not Available [facility] 3 09:17:34 Paresthesia of hand 404094156 Active Not Available [facility] 3 09:17:34 Pelvic congestion syndrome 07627605 Active Not Available [facility] 3 09:17:34 Melanocytic nevus 233295262 Active Not Available [facility] 3 09:17:34 Herpes zoster 5337469 Active Not Available [facility] 3 09:17:34 Anxiety 76518230 Active Not Available [facility] 3 09:17:34 Pruritic rash 78489713 Active 2022 Joe Manning MD [address], [place] [address], [place], [address] , [facility] 3 12:38:22 Pain of multiple joints 60748014 Active 2022 Joe Manning MD [address], [address] [address], [place], [address] , [facility] 3 12:39:21 Persistent insomnia 982570898 Active 2022 Jeo Manning MD [address], [place], [address] , [place] [employer] [facility] [employer] 22:32:08 Mammography abnormal 954924102 Active 2022 CHAR Carmen null, [facility] 09:31:27 Problem Notes None recorded. Procedures Surgical History Date Name Laterality Status Provider Name and Address Organization Details Recorded Time 06/19/19 screening mammography completed Meme Foster RN [employer] [facility] [employer] 06/20/2023 11:49:51 Tonsillectomy completed Not Available [facility] 06/21/2022 09:13:18 Breast augmentation w/implt completed Not Available [facility] 06/21/2022 09:13:18 Imaging Results Imaging Date Name Status LastModified by Organiz ation Details LastModified Time 10/13/2022 MAMMO, screening, bilateral completed [email or web address] [facility] [address], [place], [address], 10/17/2022 09:10:35 11/13/2022 MAMMO, diagnostic, digital, unilateral [email or web address] [address], [place], [address], 11/13/2022 16:35:14 11/13/2022 US, breast, unilateral completed [email or web address] [facility] [address], [place], [address], 11/13/2022 16:35:15 06/19/2023 US, breast, unilateral completed [email or web address] [facility] [address], [place], [address], 06/20/2023 11:47:08 06/19/2023 MAMMO, diagnostic, digital, unilateral completed [email or web address] [facility] [address], [place], [address], 06/20/2023 11:47:08 Procedure Notes None recorded. Medical [...] % 98 % 76 /min 97.5 [degF] 00277.0 1 g 122 mm[Hg] 90 mm[Hg] Not Available [facility] 3 09:16:49 Date Recorded Body mass index (BMI) Body height Oxygen saturation Oxygen saturation in Arterial blood by Pulse oximetry Heart rate Body temperature Body weight Systolic blood pressure Diastolic blood pressure Provider Name and Address Organization Details Last Updated DateTime 1 21 kg/m2 165.1 cm 99 % 99 % 97 /min 96.8 [degF] 74197.6 4 g 110 mm[Hg] 80 mm[Hg] Not Available [facility] 3 09:16:50 Date Recorded Body mass index (BMI) Body height Oxygen saturation Oxygen saturation in Arterial blood by Pulse oximetry Heart rate Body temperature Body weight Systolic blood pressure Diastolic blood pressure Provider Name and Address Organization Details Last Updated DateTime 2 20.6 kg/m2 165.1 cm 98 % 98 % 105 /min 98.7 [degF] 35598.4 5 g 110 mm[Hg] 78 mm[Hg] Not Available [facility] 3 09:16:50 Date Recorded Body mass index (BMI) Body height Oxygen saturation Oxygen saturation in Arterial blood by Pulse oximetry Heart rate Body temperature Body weight Systolic blood pressure Diastolic blood pressure Provider Name and Address Organization Details Last Updated DateTime 2 21 kg/m2 165.1 cm 98 % 98 % 88 /min 97.9 [degF] 91448.6 4 g 100 mm[Hg] 62 mm[Hg] Not Available [facility] 3 09:16:50 Date Recorded Body height Body mass index (BMI) Body weight Body temperature Heart rate Oxygen saturation Oxygen saturation in Arterial blood by Pulse oximetry Systolic blood pressure Diastolic blood pressure Provider Name and Address Organization Details Last Updated DateTime 3 165.1 cm 20.3 kg/m2 43785.2 7 g 98.1 [degF] 78 /min 97 % 97 % 108 mm[Hg] 82 mm[Hg] CHAR Carmen CA - [facility] MD [employer] [facility] 3 12:29:07 Social History Question Answer Notes LastModified by Organizat ion Details LastModified Time Tobacco Smoking Status Never Smoker Not Available [facility] 06/21/2022 09:13:14 What Is Your Level Of Alcohol Consumption? Occasional [id number] Information not available 06/21/2022 Sex: Unknown Functional Status None recorded. Mental Status None recorded. Family History Relationship Description Onset Age of this Age Resolved Age Notes LastModified by Organization Details LastModified Time Father No current problems or disability [id number] Not available 06/21/2022 09:13:20 Mother No current problems or disability [id number] Not available 06/21/2022 09:13:20 Medical History Condition Response SLEEP DISORDER Y ANXIETY DISORDER Y Gynecological HistoryNo gynecological history recorded. Obstetrics History GPAL:G 0 P 0 0 0 0 Immunizations Vaccine Type Date Status Note Provider Nam e and Address Organization Details Recorded Time DTaP 03/27/2012 completed Not Available [employer] 06/21/2022 09:22:25 Influenza, split virus, quadrivalent, PF 02/19/2020 completed Not Available [facility] 09:22:25 Past Encounters Encounter ID Performer Location Encounter Start Date Encounter Closed Date Diagnosis/Indication Diagnosis SNOMED-CT Code Diagnosis ICD10 Code Diagnosis Note [id number] Joe Manning MD [facility] [place] [address] [place] [address] 08/11/2020 00:00:00 08/11/2020 18:57:02 [id number] Joe Manning MD [facility] [place] [address] [place] [address] 12/08/2020 00:00:00 12/08/2020 11:01:03 [id number] Joe Manning MD [facility] [place] [address] [place] [address] 03/02/2021 00:00:00 03/02/2021 20:19:15 [id number] Joe Manning MD [facility] [place] [address] [place] [address] 10/06/2021 00:00:00 10/06/2021 14:12:22 [id number] Joe Manning MD [facility] [place] [address] [place] [address] 11/25/2021 00:00:00 11/26/2021 13:16:44 [id number] [facility] Deb delgado [address] [facility] [place] [address] 10/05/2022 12:20:39 10/05/2022 12:44:03 Pruritic rash 62494388 L28.2 Pain of mu ltiple joints 03573869 M25.50 Anxiety 42565065 F41.9 Call for refills of alprazolam Health Concerns Section Related Observation LastModified by Organization Detai ls LastModified Time None Recorded Concern Status LastModified by Organization Details LastModified Time None Recorded Advance Directives Directive None Recorded Payers Encounter Date Sequence Insurance Name Policy Number Policy Rojas Covered Member ID Rojas Member ID Guarantor Name 10/05/2022 1 [facility] [id number] Holly Veronica [facility] [id number] Holly Moya Notes Date Note Type Note Provider Name and Address Organization Details Recorded Time 10/05/2022 text/html Here today c/o rash on chest. It went away but 2 months ago broke out on chest. Itches like crazy. Took benadryl and no help. No change in products and no food allergies. No exposure to plants. Has some joint aches. Hands and knees Joe Manning MD [address] [facility], [facility] [address], [place], [address], [facility] 10/05/2022 22:33:47 OBGyn Episode No OBEpisode recorded.
--- OUTSIDE RECORDS SUMMARY | 2024-08-30 21:23 | XMS_ITS | Data Portability ---
Author Organization [facility] [place] Address [address] [address] [place] [address] Assessment Encounter Date Assessment Date Assessment LastModified by Organization Details LastModified Time 04/17/2024 04/17/2024 Annual gynecological exam performed. Patient will come back in a year unless there are new symptoms. Not available 04/17/2024 10:27:34 Plan of Treatment Reminders Order Date Submit Date Provider Last Modified By Organization Details Last Modified Time Details Appointments None recorded. Lab test, urine 2024 025 [email or web address] [place], [address], [place], [address], 15:53:30 Referral None recorded. Procedures None recorded. Surgeries None recorded. Imaging None recorded. Medication Orders None recorded. Patient TargetsNo targets recorded. Patient InstructionsNo instructions recorded. Reason for Referral None Reported. Results Created Date Observation Date Name Description Value Unit Range Abnormal Flag Note LastModifiedBy Organization Detail LastModifiedTime 11/08/1911/08/2023 VAGIN ITIS/ VAGIN OSIS, DNA PROBE amada sp. detection, direct probe Negati ve negati ve Not Available [facility] (Lab) [address], [place], [address], 11/09/2023 20:33:54 11/08/19 24 11/08/2023 VAGIN ITIS/ VAGIN OSIS, DNA PROBE gardnerella vag. detection, direct probe Negati ve negati ve Not Available [facility] (Lab) [address], [place], [address], 11/09/2023 20:33:54 11/08/19 24 11/08/2023 VAGIN ITIS/ VAGIN OSIS, DNA PROBE trichomonas vag. detection, direct probe Negati ve negati ve Not Available [facility] (Lab) [address], [place], [address], 11/09/2023 20:33:54 04/17/20 24 04/17/2024 IMAGE GUIDE D PAP AND HPV REGAR DLESS image guided Pap, HPV regardless of Pap result SEE RESULT S BELOW abnormal CASE REPOR T: Cytol ogy Gynec ologi ro Repor t Case: [id number] Autho scarlet conde Provi dexter: Marcy Stevens, RIYA Colle cted: 04/17 1126 Order ing Locat ion: [place] Patho log[facility] Recei chelsi: 04/18 0202 First Scree n: Misha turk, Holly mera, CT Patho logis t: Shai Loco MD Speci men: Payal rodriguez Pap - Image d, Cervi x STATE MENT OF ADEQU ACY: Satis facto ry for evalu ation Trans forma tion zone compo nent prese nt ----- ----- ----- ----- ----- ----- ----- ----- ----- ----- ----- ----- ----- ----- ----- ----- ----- ---- FINAL DIAGN OSIS: Epith elial Cell Abnor malit y, Squam ous Cell: Atypi ro Squam ous Cells of Undet ermin ed Devi ronnie pinto (ASC- US). 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 COMME NT: This [...] of Neopl ferny (if appli cable ): Signi fican t Clini ro Findi ngs: Other Histo ry: Hormo ely (if appli cable ): RILEY DE [place] FOLLO W-UP: Follo w up as manuel nted, based on curramanedep nt guide lines and indiv idual patie nt consi derat ions. Not Available [facility] (Lab) [address], [place], [address], 04/30/2024 15:41:02 05/30/19 25 05/30/2024 SURGI RO PATHO LOGY surgical pathology SEE RESULT S BELOW CASE REPOR T: Surgi ro Patho logy Repor t Case: [id number] Autho scarlet conde Provi dexter: Melissa [...] epith elial lesio n (KAMILAH- 2). -Back groun d low-g rade squam ous intra epith elial lesio n (KAMILAH- 1). 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 Problems Name Problem SNOMED Code Status Onset Date Resolution Date Notes Provider Name and Address Organization Details Recorded Time Microsco pic hematuri a 126174360 Completed 201506/25/2020 Other microsco pic hematuri a;Record ed Elsewher e: No Locat ion: [facility] S ource: EHR Gripper Attacher georgiana: N Practi ce ID: 0001 Omer lable Time: 09:30:00 AM Salome Pang [facility] 12:51:46 Screenin g for malignan t neoplasm of cervix Completed 201106/25/2020 Screenin g for malignan t neoplasm s of the cervix;R ecorded Elsewher e: No [facility] our[facility]: EHR Gripper Attacher georgiana: N Practi ce ID: 0001 Omer lable Time: 11:30:00 AM Salome Pang [facility], [facility] 12:51:59 Vaginiti s and vulvovag initis Completed 201006/25/2020 Vaginiti s and vulvovag initis, unspecif ied;Prac tess ID: 0001 Salome Pang [facility], [facility] 12:52:14 Health conditio n feared but not present [id number] 9109 Completed 201006/25/2020 Person with feared complain t in whom no diagnosi s was made;Pra ctice ID: 0001 Salome Pang [facility], [facility] 12:51:[address] Concept Completed 201606/25/2020 Encntr for garment folder exam (general ) (routine ) w/o abn findings ;Recorde d Elsewher e: No [facility]at [facility] S ource: EHR Gripper Attacher georgiana: N Practi ce ID: 0001 Omer lable Time: 03:30:00 PM Salome Pang null, [facility] 12:52:02 Pregnanc y test negative 991546046 Completed 201006/25/2020 Pregnanc y examinat ion or test, negative result;R ecorded Elsewher e: No Locat ion: [facility] S ource: EHR Gripper Attacher georgiana: N Practi ce ID: 0001 Omer lable Time: 08:45:00 AM Salome Pang maikol, [facility] 12:51:53 Contrace ptive sheath status 444349774 Completed 201506/25/2020 IUD follow up;Recor ded Elsewher e: No Locat ion: [facility]: N Practi ce ID: 0001 Omer lable Time: 06:00:00 PM Salome lassiter [facility] 12:50:51 Left lower quadrant pain 920798328 Completed 201506/25/2020 LLQ pain;Rec orded Elsewher e: No Locat ion: [facility] S ource: EHR Gripper Attacher georgiana: N Practi ce ID: 0001 Omer lable Time: 05:00:00 PM Salome Pang maikol [facility] 12:51:39 Clinical finding Completed 201506/25/2020 Presence of (intraut erine) contrace ptive device;R ecorded Elsewher e: No Locat ion: [facility] S ource: EHR Gripper Attacher georgiana: N Practi ce ID: 0001 Omer lable Time: 09:30:00 AM Salome Poly maikol [facility] 12:50:48 Female genital organ symptoms 854370904 Completed 201006/25/2020 Unspecif ied symptom associat ed with female genital organs;P ractice ID: 0001 Salome lassiter [facility] 12:51:21 Pelvic and perineal pain 393338887 Completed 201506/25/2020 Pelvic and perineal pain;Pra ctice ID: 0001 [facility] 12:51:51 Evaluati on finding Completed 201606/25/2020 Hematuri a, unspecif ied;Prac tess ID: 0001 [facility] 12:51:18 Finding of sensatio n of breast Completed 201706/25/2020 Mastodyn ia;Pract ice ID: 0001 Salome Pang [facility] 12:51:24 Acute vaginiti s 40587219 Completed 201906/25/2020 Acute vaginiti s;Practi ce ID: 0001 Salome Pang [facility] 12:50:42 Disorder of breast 47993223 Completed 201506/25/2020 Disorder of breast, unspecif ied;Noah rded Elsewher e: No Locat ion: [facility] S ource: EHR Gripper Attacher georgiana: N Practi ce ID: 0001 Omer lable Time: 05:00:00 PM Salome Pang [facility] 12:51:14 Breast lump 61259717 Completed 201506/25/2020 Unspecif ied lump in breast;R ecorded Elsewher e: No Locat ion: [facility] S ource: EHR Gripper Attacher georgiana: N Practi ce ID: 0001 Omer lable Time: 11:30:00 AM [facility] 12:50:45 Pain of breast 94876621 Completed 201406/25/2020 Mastodyn ia;Recor ded Elsewher e: No Locat ion: [facility] S ource: EHR Gripper Attacher georgiana: N Merati ce ID: 0001 Omer lable Time: 02:00:00 PM Salome lassiter [facility] 12:51:48 Urinary tract infectio us disease 08379897 Completed 201506/25/2020 Urinary tract infectio n, site not specifie d;Record ed Elsewher e: No Locat ion: [facility] S ource: [facility] [place]: N Merati ce ID: 0001 Omer lable Time: 02:15:00 PM Salome Pang [facility], [facility] 12:52:10 Removal of intraute rine device Completed 201506/25/2020 Encounte r for removal of intraute rine contrace ptive device;R ecorded Elsewher e: No Locat ion: [facility] S ource: EHR Gripper Attacher georgiana: N Merati ce ID: 0001 Omer lable Time: 11:15:00 AM Salome lassiter [facility] 12:51:56 Dysfunct ional uterine bleeding Completed 201006/25/2020 Other disorder s of menstrua tion and other abnormal bleeding from female genital tract;Re corded Elsewher e: No Locat ion: [facility] S ource: EHR Gripper Attacher georgiana: N Merati ce ID: 0001 Omer lable Time: 08:45:00 AM Salome lassiter [facility] 12:51:16 Insertio n of intraute rine contrace ptive device Completed 201506/25/2020 Encounte r for insertio n of intraute rine contrace ptive device;R ecorded Elsewher e: No Locat ion: [facility] S ource: EHR Gripper Attacher georgiana: N Merati ce ID: 0001 Omer lable Time: 09:30:00 AM Salome lassiter [facility] 12:51:34 Speciali zed medical examinat ion Completed 201406/25/2020 Gynecolo gical Examinat ion;Noah rded Elsewher e: No Locat ion: [facility] S ource: EHR Gripper Attacher georgiana: N Practi ce ID: 0001 Omer lable Time: 11:00:00 AM Salome Pang maikol, [facility] 12:52:04 Uses IUD (intraut erine device) contrace ption 864222956 Completed 201006/25/2020 Surveill ance of intraute rine contrace ptive device;P ractice ID: 0001 Salome Pang maikol, [facility] 12:51:37 Contusio n of genital organ 359231418 Completed 201406/25/2020 Contusio n of vulva;Re corded Elsewher e: No Locat ion: [facility] S ource: EHR Gripper Attacher georgiana: N Practi ce ID: 0001 Omer lable Time: 02:30:00 PM Salome Pang maikol, [facility] 12:51:08 Malaise and fatigue 932011688 Completed 201406/25/2020 Fatigue / Malaise; Recorded Elsewher e: No Locat ion: [facility] S ource: EHR Gripper Attacher georgiana: N Practi ce ID: 0001 Omer lable Time: 11:00:00 AM Salome lassiter, [facility] 12:51:44 Ill-defi jesus intestin al infectio n Completed 201206/25/2020 No Show Fee;Prac tess ID: 0001 Salome Pang maikol [facility] 12:51:32 Speciali zed medical examinat ion Completed 201406/25/2020 Other specifie d chlamydi al diseases ;Practic e ID: 0001 Salome lassiter [facility] 12:52:07 Venereal disease screenin g Completed 201406/25/2020 Screenin g examinat ion for venereal disease; Practice ID: 0001 Salome lassiter [facility] 12:52:16 Leukorrh ea 055697533 Completed 201406/25/2020 Leukorrh ea, not specifie d as infectiv e;Record ed Elsewher e: No Locat ion: [facility] S ource: EHR Gripper Attacher georgiana: N Practi ce ID: 0001 Omer lable Time: 02:00:00 PM Salome lassiter [facility] 12:51:42 Generali zed abdomina l pain 288461653 Completed 201006/25/2020 Abdomina l pain, generali zed;Prac tess ID: 0001 Salome Pang [facility] 12:51:26 Cyst of ovary 53588835 Completed 201006/25/2020 OVARIAN CYST;Pra ctice ID: 0001 Saloem Pang [facility] 12:51:11 Problem Notes None recorded. Procedures Surgical History Date Name Laterality Status Provider Name and Address Organization Details Recorded Time 08/20/19 25 LOOP ELECTRODE EXCISION PROCEDURE, SURGICAL (LEEP) (SURG) completed Salome Pang [facility] 08/20/2024 08:48:38 05/30/19 25 Colposcopy completed Hawk Mattson MD [address], [place], [address], [facility] 05/30/2024 16:21:11 05/30/19 25 Colposcopy completed Violet Person [facility] 05/30/2024 15:47:02 05/30/19 25 colposcopy completed Violet Person [facility] 05/30/2024 15:46:42 04/17/20 24 Date of Last Pap Smear completed Violet Person [facility] 05/30/2024 15:41:13 11/22/19 24 Date of Last Mammogram completed Fabiolaelan Blackney [facility] 04/17/2024 10:31:13 11/01/19 23 Colposcopy completed AMANDA Solares- [address], [place], [address], [facility] 10/31/2022 10:24:39 09/27/19 22 IUD Insertion completed AMANDA Nichole [address], [place], [address], [facility] 09/26/2021 17:55:57 10/06/19 21 DILATION AND CURETTAGE WITH HYSTEROSCOPY (SURG) completed Marcella Hillman [facility] 10/06/2020 11:49:18 09/05/19 20 IUD Removal completed Maria Isabel Mcclain [facility] 09/05/2019 15:10:40 03/23/20 16 Dilation and Curettage completed Salome Pang [facility] 06/25/2020 09:02:06 04/23/19 12 excision of melanoma completed Salome Pang [facility] 06/25/2020 09:01:19 06/22/19 02 augmentation mammoplasty completed Mireya Lott [facility] 08/20/2019 15:57:32 Imaging Results None recorded. Procedure Notes None recorded. Medical Equipment None [...] 1 tablet 2 hours before procedur e. 08/28 completed Not Available Not Available Not Available nystatin- triamcino lone 100,000 unit/gram -0.1 % topical ointment APPLY TOPICALL Y TO THE AFFECTED AREA TWICE DAILY FOR 5 DAYS 02/09 completed Not Available Not Available Not Available oxycodone -acetamin ophen 5 mg-325 mg tablet take 2 tablets 2 hours before the procedur e 08/28 completed Not Available Not Available Not Available alprazola m 0.5 mg tablet Take 1 tablet 2 hours before the procedur e. 08/28 completed Not Available Not Available Not Available amoxicill in 875 mg tablet TAKE 1 TABLET BY MOUTH TWICE DAILY 08/28 completed Not Available Not Available Not Available alprazola m 0.25 mg tablet TAKE [...] Prescrib ed Elsewher e: No Locat ion: [facility] odify By: zabrina martinez DateTime : 10/30/19 09:31:50 AM Not Available [...] route every day 03/13 completed Prescrib ed Elsew e: No Locat ion: Shila [facility] odify By: loren stapletonunttrupti DateTime : 03/02/20 10:31:15 AM Not Available [...] Updated DateTime 11/08/2023 162.56 cm 22.9 kg/m2 60964.5 g 134 mm[Hg] 89 mm[Hg] Trina Valadez [facility] 4 14:13:10 Date Recorded Body height Body mass index (BMI) Body weight Systolic blood pressure Diastolic blood pressure Provider Name and Address Organization Details Last Updated DateTime 04/17/2024 162.56 cm 22.8 kg/m2 31446.79 g 133 mm[Hg] 88 mm[Hg] Fabiola Morrow [facility] 4 10:28:47 Date Recorded Body height Body mass index (BMI) Body weight Systolic blood pressure Diastolic blood pressure Provider Name and Address Organization Details Last Updated DateTime 08/28/2024 162.56 cm 22.3 kg/m2 57136.01 g 124 mm[Hg] 85 mm[Hg] Violet Raza [facility] 17:38:07 Social History Question Answer Notes LastModified by Organizat ion Details LastModified Time Tobacco Smoking Status Former Smoker Salome Pang null, [facility] 06/25/2020 12:55:05 What Is Your Level Of Alcohol Consumption? Occasional Information not available 06/25/2020 If You Are , What Was Your Level Of Alcohol Consumption Prior To ? None [email or web address] Information not available 06/25/2020 Are You Blind Or Do You Have Difficulty Seeing? No [email or web address] Information not available 06/25/2020 What Is Your Level Of Caffeine Consumption? Moderate [email or web address] Information not available 06/25/2020 In The 14 Days Before Symptom Onset, Have You Had Close Contact With A Laboratory-confir med COVID-19 While That Case Was Ill? No [email or web address] Information not available 06/25/2020 In The 14 Days Before Symptom Onset, Have You Had Close Contact With A Person Who Is Under Investigation For COVID-19 While That Person Was Ill? No [email or web address] Information not available 06/25/2020 Have You Been To An Area Known To Be High Risk For COVID-19? No [email or web address] Information not available 06/25/2020 Are You Deaf Or Do You Have Serious Difficulty Hearing? No [email or web address] Information not available 06/25/2020 What Type Of Diet Are You Following? REGULAR [email or web address] Information not available 06/25/2020 Have You Ever Been Counseled For Unhealthy Alcohol Use? No Information not available 06/25/2020 Do You Use Your Seat Belt Or Car Seat Routinely? Yes [email or web address] Information not available 06/25/2020 Do You Have Smoke And Carbon Monoxide Detectors In Your Home? Yes [email or web address] Information not available 06/25/2020 Do You Feel Stressed (tense, Restless, Nervous, Or Anxious, Or Unable To Sleep At Night)? [id number] Information not available 06/25/2020 Do You Use Any Illicit Or Recreational Drugs? No [email or web address] Information not available 06/25/2020 Do You Use Sunscreen Routinely? Yes [email or web address] Information not available 06/25/2020 Has Tobacco Cessation Counseling Been Provided? No [email or web address] Information not available 06/25/2020 Do You Or Have You Ever Used Any Other Forms Of Tobacco Or Nicotine? No [email or web address] Information not available 06/25/2020 Sex: Unknown Functional Status Question Answer Note LastModified by Organizat ion Details LastModified Time Do you have difficulty walking or climbing stairs? No Information not available 08/25/2021 Are you able to walk? YESWOREST [email or web address] Information not available 06/25/2020 Are you able to care for yourself? Yes Information not available 08/25/2021 Do you have difficulty dressing or bathing? No Information not available 08/25/2021 What is your exercise level? Occasional [email or web address] Information not available 06/25/2020 Mental Status None [...] 15:55:13 Paternal Grandfather Carcinoma of prostate 56 [email or web address] Not available 06/25 18:40:18 Maternal Grandmother Neoplasm of bone marrow Not available 08/2020 09:00:57 Maternal Grandmother Malignant lymphoma 70 [email or web address] Not available 06/25 18:41:03 Mother Malignant tumor of breast 67 [email or web address] Not available 06/25 18:40:32 Mother Malignant melanoma [email or web address] Not available 2023 10:33:22 Medical History Condition Response Other Y Blood Transfusion N Dermatologic Disorders Y Gestational Diabetes N Anxiety Disorder N Autoimmune disease N Arthritis N Polyps N Infertility N Acid Reflux (GERD) N Cancer N Varicosities N Stroke N Neurologic/Epilepsy N Fibromyalgia N Headaches N Kidney Disease N Heart Problems N Kidney or Bladder Problems N Eating Disorder N Art (IVF or FET) N Hepatitis/Liver Disease N Urinary Tract Infection N Asthma N Trauma/Violence N Thrombophilias N Allergies (Food, seasonal, environmental ) N Breast Cancer N Drug/Latex Allergies/Reactions N Lung Disease N Defects or Inherited Disease N Breast Problem Y Hematologic disorders N Anesthesia Complications N History of STI Y Deep Vein Thrombosis N Polycystic ovary syndrome N History of abnormal pap Y Endometriosis N High Cholesterol N Thyroid Problems N GI Problems N Anemia Y Psychiatric Illness N Ovarian Cancer N Diabetes N Pulmonary (TB, Asthma) N Eczema N Abuse/Domestic Violence N Depression/ depression N Heart Disease N Pre-Eclampsia N Hypertension N Osteoporosis N Gynecological History Statement/Question Response Abnormal Pap Yes Date of Last Mammogram 11/22/2023 Flow Moderate Date of LMP 08/22/2024 Was last menstrual period normal Y STIs/STDs Yes HPV Vaccine N Colposcopy 05/30/2024 Duration of Flow (days) 4 Current Control Method Withdrawal Are cycles usually normal Y Frequency of Cycle (Q days) 24 Sexually Active? Y Menses Monthly Y Age [...] Code Diagnosis ICD10 Code Diagnosis Note [id number] Yamile Mcclain MD [place] [address] [address] 08/25/2019 15:51:48 08/26/2019 09:48:18 Pain in pelvis 99022378 R10.2 I offered U/S, but she declines since her pain has resolved. She has had known ovarian cyst in past with Mirena, and we discussed that Mirena does increase the risk of ovarian cysts. Overall she is happy with Mirena but will call if severe pain recurs or any other concerning symptoms Chronic vaginitis 647251 08 N76.1 She believes she gets BV [...] majority of time in counseling . 3420 Hawk Mattson MD [place] [address],[place] [address] 08/28/2019 12:27:30 08/28/2019 13:26:16 Pain in pelvis 79823495 R10.2 N83.292 [id number] Yamile Mcclain MD [place] [address],[place] [address] 08/29/2019 14:15:03 08/29/2019 15:46:38 Cyst of left ovary 3645458634 5819938 N83.202 We discussed options including removing Mirena [...] of time in counseling Acute pelvic pain 277474 005 R10.2 likely due to cyst 4412 Yamile Mcclain MD [place] [address],[place] [address] 09/05/2019 14:17:56 09/05/2019 16:10:36 Cyst of left ovary 3462312605 7188528 N83.202 Mirena removed today. She agrees to repeat U/S in 6-8 weeks. She is considerin g ParaGard IUD but wants to have some time without anything in that area. She plans to abstain but says she'll use condoms if not. Removal of intrauterine device 16064123 Z30.432 9668 Hawk Mattson MD [place] [address],[place] [address] 10/17/2019 13:59:11 10/17/2019 14:36:04 Cyst of left ovary 5953106501 3567154 N83.292 [id number] Yamile Mcclain MD [place] [address],[place] [address] 10/17/2019 13:59:42 10/17/2019 15:00:01 Cyst of left ovary 8557278092 0028060 N83.202 Cyst resolved after Mirena removal. She [...] ehr with majority of time in counseling [id number] Holly Bell CNM [place] [address],[place] [address] 06/25/2020 12:28:27 06/25/2020 17:29:36 Gynecologic examination 87459731 Z01.419 11025 Hawk Mattson MD [place] [address],[place] [address] 07/05/2020 11:56:24 07/05/2020 12:26:21 Pain in pelvis 87492151 R10.2 14336 Hawk Mattson MD [place] [address],[place] [address] 08/16/2020 09:57:37 08/16/2020 10:41:40 Cyst of right ovary 4138171006 8876327 N83.291 05883 Hawk Mattson MD [place] [address],[place] [address] 08/26/2020 13:52:08 08/26/2020 14:59:19 Lesion of endometrium 7266201846 9101 N85.9 This patient is a 40-year-ol [...] We will proceed with hysterosco py D&C. [id number] Hawk Mattson MD [place] [address],[place] [address] 10/01/2020 16:14:43 10/02/2020 16:16:47 Lesion of endometrium 3531254956 9101 N85.9 this patient is a 40-year-ol d female with a cystic vascular lesion of the endometriu m. We have agreed to perform hysterosco py D&C to rule out severe disease. She understand s the risks, benefits and alternativ es. She has completed the informed consent process and is ready to proceed. [id number] Hawk Mattson MD [facility] [address],[place] [address] 10/06/2020 10:40:46 10/06/2020 10:41:55 [id number] Hawk Mattson MD [facility] [address],[place] [address] 10/13/2020 14:48:19 10/13/2020 18:05:14 Polyp of corpus uteri [id number] N84.0 this patient is a 40-year-ol d female presents for follow-up after procedure. She had hysterosco py D& C. Polyps were removed. She tolerated the procedure well. She is recovering normally. She has no complaints . She is relieved to know the pathology is benign. She will follow up as needed. [id number] AMANDA Nichole [facility] [address],[place] [address] 08/25/2021 16:36:18 08/26/2021 12:18:05 Screening for malignant neoplasm of breast [id number] Z12.39 Gynecologi c examination 49572590 Z01.419 Z11.51 Suggested Calcium with Vitamin D 1200-1500m g daily. Patient advised to get an annual flu shot in the fall and she could obtain at [facility] or [facility] take care clinic. Also to obtain TDap [...] STI testing added to papMammogr am order [facility] for IUD insertion Contracept ion care management [id number] Z30.9 [id number] Marcy Stevens RIYA [facility] [address] [address] 09/26/2021 17:03:04 09/26/2021 18:05:42 Contraception care management 568475514 Z30.9 ParaGuard IUD attempted to be placed, [...] ing.RTC in 3 months for med check [id number] Michelle Casanova [facility] [address],[place] [address] 12/09/2021 15:50:17 12/09/2021 16:21:26 Vaginitis 51751643 N76.0 Suspect yeast/BVRx sent If sx's worsen or persist contact office. Time spent in visit is a total of 15 mins with at least 50% of visit consisting of counseling and review of plan of care. [id number] Marcy Stevens [facility] [address],[place] [address] 10/05/2022 10:58:24 10/05/2022 14:49:48 Gynecologic examination 69170220 Z01.419 Z11.51 Suggested Calcium with Vitamin D 1200-1500m g daily. Patient advised to get an annual flu shot in the fall and she could obtain at [facility] or [facility] care clinic. Also to obtain TDap vaccinatio [...] discussed. She has f/u with PCP scheduled [id number] Michelle Casanova [facility] [address],[place] [address] 10/31/2022 09:46:17 10/31/2022 10:26:19 Screening procedure 53872209 Z13.9 Atypical s quamous cells of undetermined significance on cervical Papanicolaou smear 941921094 R87.610 See procedure notes.Post -procedure instructio ns [...] sults/unde rstanding- cervical-c hanges.pdf R/P pap/hpv x [id number] AMANDA Nichole [facility] [address],[place] [address] 12/26/2022 09:52:36 12/26/2022 10:25:57 Contraception care management 616193129 Z30.9 Discussed all control options in great [...] Pt verbalized understand ing.slynd sample given - [id number], 4rx sent Venereal d isease screening 899498573 Z11.3 Vaginitis 28500594 N76.0 suspect yeastvagin itis / STI panel [...] counseling and review of plan of care. [id number] Michelle Casanova , [facility] [address],[place] [address] 02/09/2023 09:27:38 02/09/2023 12:04:45 Vaginitis 67570067 N76.0 Suspect yeast on exam with the [...] of plan of care. Pain in pelvis 00156668 R10.2 Updated US to be completed for increase in pelvic pain during ovulation and cycle.Will complete a telehealth f/u to discuss. Adult heal th examination 115044395 Z00.00 Vitamin D deficiency 347 92571 E55.9 [id number] Hawk Mattson MD [facility] [address],[place] [address] 02/12/2023 09:57:06 02/12/2023 10:40:40 Pain in pelvis 78764778 R10.2 [id number] Michelle Casanova , [facility] [address],[place] [address] 02/15/2023 16:15:52 02/15/2023 17:04:41 Pain in pelvis 02430246 R10.2 US was reviewed & POC discussed, Recommende d r/p 8wk TVUS and monitor at this time since symptoms have improved.U nderstandi ng was verbalized and no further questions. Total time of virtual-ZO OM visit/Tele -visit was approx 20 mins with >50% consisting of counseling , education of patient's plan of care. [id number] Hawk Mattson MD [facility] [address],[place] [address] 04/06/2023 16:42:14 04/06/2023 18:43:14 Imaging result abnormal [id number] R93.89 [id number] Marcy Lorrijulio [facility] [address],[facility] [place] [address] 11/08/2023 13:55:38 11/08/2023 15:14:57 Vaginal discharge 689595004 N89.8 exam today wnlvaginit is panel sentSTI screen declinedvu lvar care guidelines discussedR TC for WWE or sooner if needed Time spent in visit is a total of 20 mins with at least 50% of visit consisting of counseling and review of plan of care. [id number] Marcy Stevens RIYA [place] [address],[place] [address] 04/17/2024 10:21:40 04/17/2024 10:53:46 Gynecologic examination 26446097 Z01.419 Z11.51 WWEBC - declinedPa p - [...] consult advised. All questions have been answered. [id number] Hawk Mattson MD [facility] [address],[facility] [place] [address] 05/30/2024 15:23:30 05/30/2024 16:57:19 Screening procedure 14320810 Z13.9 Abnormal c ervical Papanicolaou smear 543078972 R87.619 colposcopy was performed. Satisfacto ry. Biopsy performed. Tolerated well. To follow-up [id number] Hawk Mattson MD [facility] [address],[place] [address] 08/19/2024 08:46:47 08/19/2024 10:57:09 [id number] Hawk Mattson MD [facility] [address],[place] [address] 08/28/2024 17:03:08 08/29/2024 11:32:52 Dysplasia of cervix 54527839 N87.9 44-year-ol d female presents for follow-up on cervical dysplasia. She underwent LEEP procedure. She is recovering normally. She does have some mild vaginal bleeding. She has also had her menses in the interim. She denies any foul-smell ing vaginal discharge. She denies any pain. To continue observatio n. Patient to return for worsening or static symptoms. patient to have Pap smear every 6 months for 18 months. Health Concerns Section Related Observation LastModified by Organization Detai ls LastModified Time None Recorded Concern Status LastModified by Organization Details LastModified Time None Recorded Advance Directives Directive None Recorded Payers Encounter Date Sequence Insurance Name Policy Number Policy Rojas Covered Member ID Rojas Member ID Guarantor Name 11/08/2023 1 [facility] - [employer] 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 (PPO) [facility] [id number] [facility] 11/08/2023 1 [facility] [id number] Holly Mratin Toput [id number] Holly [facility] 04/17/2024 1 [facility] - 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 (PPO) Holly [facility] [id number] [facility] 05/30/2024 1 [facility] - [employer] 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[employer]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[employer] (PPO) Holly [facility] [id number] Holly Martin Toput 08/19/2024 1 [facility] - 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 (PPO) Holly Martin [place] [id number] Holly [facility] 08/28/2024 1 [facility] - 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 (PPO) Holly [facility] [id number] Holly Veronica Toput Notes Date Note Type Note Provider Name and Address Organization Details Recorded Time 11/08/2023 text/html 43yopresents for evaluation of vaginal dischargenoticed thick/white discharge prior to her LMP, symptoms have since resolvedwould like testing for BV/yeastLMP 11/01/2023 neg d/c, odors, itchingneg pelvic painneg n/v/fneg flu-like symptoms AMANDA Nichole [address], [place], [address], [facility] 11/08/2023 15:14:01 04/17/2024 text/html [...] no biopsy donemammogram UTD 11/2023 AMANDA Nichole [address], [place], [address], [facility] 04/17/2024 10:47:24 05/30/2024 text/html This patient is a 43-year-old female presents for colposcopic examination. The procedure was explained to the patient in detail. She understands the procedure. She understands the risks, benefits, and alternatives. She has completed the informed consent process and is ready to proceed. Hawk Mattson MD [address], [place], [address], [facility] 05/30/2024 16:25:17 08/28/2024 text/html 44-year-old jerry foley presents for follow-up on cervical dysplasia. She underwent LEEP procedure. She is recovering normally. She does have some mild vaginal bleeding. She has also had her menses in the interim. She denies any foul-smelling vaginal discharge. She denies any pain. To continue observation. Patient to return for worsening or static symptoms. Hawk Mattson MD [address], [place], [address], [place] [facility] 08/28/2024 18:54:33 OBGyn Episode Ob Episode Information Episode Created Date Number of Fetuses Patient Bloodtype Patient rh Status Prepregnancy Weight lbs Domestic Partner Domestic Partner Phone Father Name Central Sterile Tech Status 08/25/19 20 1 DELETED Ronny Calculation [...] Domestic Partner Domestic Partner Phone Father Name Central Sterile Tech Status 08/25/19 20 1 CLOSED Fetus Data [...] Domestic Partner Domestic Partner Phone Father Name Central Sterile Tech Status 08/25/19 20 1 CLOSED Fetus Data [...] Domestic Partner Domestic Partner Phone Father Name Central Sterile Tech Status 08/25/19 20 1 CLOSED Fetus Data [...] Domestic Partner Domestic Partner Phone Father Name Central Sterile Tech Status 08/25/19 20 1 DELETED Ronny Calculation [...] Domestic Partner Domestic Partner Phone Father Name Central Sterile Tech Status 08/25/19 20 1 CLOSED Fetus Data [...] Domestic Partner Domestic Partner Phone Father Name Central Sterile Tech Status 08/25/19 20 1 DELETED Ronny Calculation [...] Domestic Partner Domestic Partner Phone Father Name Central Sterile Tech Status 08/25/19 20 1 CLOSED Fetus Data [...] Domestic Partner Domestic Partner Phone Father Name Central Sterile Tech Status 08/25/19 1 CLOSED Fetus Data First [...] Domestic Partner Domestic Partner Phone Father Name Central Sterile Tech Status 08/25/19 20 1 CLOSED Fetus Data [...]
[2024-08-30 21:29] VITALS: BP 117/85; PULSE 90; RESP 14; TEMP 36.5; O2SAT 98
--- NOTE | 2024-08-30 21:40 | PC.NURSE ---
edp anni at bedside for exam/pelvic exam.
--- OUTSIDE RECORDS SUMMARY | 2024-08-30 21:48 | XMS_ITS | Clinical Summary ---
Author Organization [facility] Address [address] [place] [address] Phone Care Team Providers Care Patient Sitter Name Role Phone Jeo Manning MD Primary Care Provider [phone] Medications No known medications Active Problems No known active problems Immunizations Immunization Administration Dates Next Due ([employer])(12 YR UP) COVID-19 VACCINE - EMERGENCY USE AUTHORIZATION, MRNA, [id number](PF) 30 MCG/0.3 ML IM SUSP 06/10/2020,05/21/2020 Social [...] patient's age to complete this topic Insurance [facility] [id number] Member Subscriber Plan / Payer (Ef fective 2020-Present) Name:Kia Moya Relation to Subscriber:Not on file Name:KIA MOYA Date of :1980 (Home) Address: [address] [place] [address] [address] [place] [address] Payer ID:[id number] (NAIC) Type:[facility] Address: [address] [place] [address] [facility] CHOICE PLUS Care Teams Patient Sitter Relationship Specialty Start Date End Date Joe Manning MD PCP - General Family Practice 04/24/19
--- OUTSIDE RECORDS SUMMARY | 2024-08-30 21:48 | XMS_ITS | Referral Summary ---
Author Organization [facility] Address [address] [place] [address] Care Team Providers Care Clipper Automatic Name Role Phone Katharine Matos NP Primary Care Provider [phone] Allergies Active Allergy Reactions Criticality Noted Date [...] 08/31/2023 Assessment & Plan (03/04/2024 9:42 AM TREE PLANTER): Patient's son about 6 months ago, she [...] on file Legal Sex Female 7:05 AM TREE PLANTER Gender Identity Not on file Sexual Orientation Not on file Last Filed Vital Signs Vital Sign Reading Time Taken Comments Blood Pressure 110/70 03/04/2024 8:27 AM TREE PLANTER Pulse 84 03/04/2024 8:27 AM TREE PLANTER Temperature 36.8 C (98.2 F) 03/04/2024 8:27 AM TREE PLANTER Respiratory Rate - - Oxygen Saturation 98% 03/04/2024 8:27 AM TREE PLANTER Inhaled Oxygen Concentration - - Weight 59.9 kg (132 lb) 03/04/2024 8:27 AM TREE PLANTER Height 165.1 cm (5' 5 ) 03/04/2024 8:27 AM TREE PLANTER Body Mass Index 21.97 03/04/2024 8:27 AM TREE PLANTER Plan of Treatment Not on file Procedures [...] to Health Maintenance [place] [address] [place] [id number] [employer] SIG [id number] [place] [address] [facility] HMO/PPO [place] [address] [place] [address] [facility] CHOICE [facility] HMO/PPO Address: [address] [address] [place] [address] [place] [address] [employer] SIG [id number] Care Teams Clipper Automatic Relationship Specialty Start Date End Date Katharine Matos NP [address] [facility] [address] [place] [address] PCP - General Family Medicine 03/04/24
--- OUTSIDE RECORDS SUMMARY | 2024-08-30 21:48 | XMS_ITS | Clinical Summary ---
Author Organization [facility] Address [address] [place] [address] Care Team Providers Care Branch Rental Manager Name Role Phone Unavailable Primary Care Provider Unavailabl e Source Comments [facility],non-owned Affiliates and Associated Physician Practices is amultiple site organization consisting of ambulatory clinics and hospital sitesin [place], [place], [place] and [place]. This disclosure is being madepursuant to the Care Everywhere program and may not contain all information available regarding this patient. Last updated 18.[facility] Allergies No known active allergies Medications * [...] on file Legal Sex Female 6:06 PM JEWELRY MOLD MAKER Gender Identity Not on file Sexual Orientation Not on file Last Filed Vital Signs Vital Sign Reading Time Taken Comments Blood Pressure 122/80 05/13/2019 6:05 PM JEWELRY MOLD MAKER Pulse 103 05/13/2019 6:05 PM JEWELRY MOLD MAKER Temperature 37.3 C (99.2 F) 05/13/2019 6:05 PM JEWELRY MOLD MAKER Respiratory Rate 16 05/13/2019 6:05 PM JEWELRY MOLD MAKER Oxygen Saturation 98% 05/13/2019 6:05 PM JEWELRY MOLD MAKER Inhaled Oxygen Concentration - - Weight 55.8 kg (123 lb) 05/13/2019 6:05 PM JEWELRY MOLD MAKER Height 163.8 cm (5' 4.5 ) 05/13/2019 6:05 PM JEWELRY MOLD MAKER Body Mass Index 20.79 05/13/2019 6:05 PM JEWELRY MOLD MAKER Plan of Treatment Health Maintenance Due Date [...] patient's age to complete this topic Insurance [facility] [employer] SELF PAY NO INSURANCE Member Subscriber Plan / Payer (Ef fective for All Dates) Name:Holly Moya Member ID:Not on file Relation to Subscriber:Not on file Name:HOLLY MOYA Subscriber ID:Not on file (Home) Address: [address] [place] [id number] Payer ID:Not on file Group ID:Not on file Type:Self Pay Address: [place], [place]
--- OUTSIDE RECORDS SUMMARY | 2024-08-30 21:48 | XMS_ITS | Clinical Summary ---
Author Organization [facility] Address [address] [place] [address] Care Team Providers Care Surveying Crew Stake Runner Name Role Phone Katharine Matos NP Primary Care Provider [phone] Allergies Active Allergy Reactions Criticality Noted Date [...] 08/31/2023 Assessment & Plan (03/04/2024 9:42 AM MANAGEMENT AND BUDGET ANALYST): Patient's son about 6 months ago, she [...] on file Legal Sex Female 7:05 AM MANAGEMENT AND BUDGET ANALYST Gender Identity Not on file Sexual Orientation Not on file Obstetrics History Last Filed Vital Signs Vital Sign Reading Time Taken Comments Blood Pressure 110/70 03/04/2024 8:27 AM MANAGEMENT AND BUDGET ANALYST Pulse 84 03/04/2024 8:27 AM MANAGEMENT AND BUDGET ANALYST Temperature 36.8 C (98.2 F) 03/04/2024 8:27 AM MANAGEMENT AND BUDGET ANALYST Respiratory Rate - - Oxygen Saturation 98% 03/04/2024 8:27 AM MANAGEMENT AND BUDGET ANALYST Inhaled Oxygen Concentration - - Weight 59.9 kg (132 lb) 03/04/2024 8:27 AM MANAGEMENT AND BUDGET ANALYST Height 165.1 cm (5' 5 ) 03/04/2024 8:27 AM MANAGEMENT AND BUDGET ANALYST Body Mass Index 21.97 03/04/2024 8:27 AM MANAGEMENT AND BUDGET ANALYST Plan of Treatment Health Maintenance Due Date [...] Relevant to Health Maintenance [place] [id number] [facility] SIG [id number] [place] [address] CHOICE PLUS [facility] HMO/PPO Address: [address] [address] [place] [address] [facility] CHOICE PLUS [facility] H[facility]/PPO Address: [address] [address] [place] [address] [facility] SIG [id number] Care Teams Surveying Crew Stake Runner Relationship Specialty Start Date End Date Katharine Matos NP [address] [address] PCP - General Family Medicine 03/04/24
--- NOTE | 2024-08-30 21:50 | ED.FEMALEGU ---
HPI - Female Genitourinary General Chief complaint: [employer] Stated complaint: LEEP procedure 1 wk ago-bleeding and clotting Time Seen by Provider: 08/30/24 21:26 History of Present Illness HPI Narrative: 44-year-old female with history of anxiety presents to the emergency department for abnormal uterine bleeding. Patient had a LEEP procedure performed on 08/[address] Mattson. States since then she has had mild vaginal bleeding. On 08/22/2024 she began developing breast discomfort and suprapubic cramping and attributed this to starting her menstrual cycle. She states her periods are normally very regular, 24 days apart and lasting 3 days. She states her bleeding has continued which is been abnormal. States today she passed multiple small clots, the largest being about a half-dollar size. She contacted Dr. Mattson and was advised to come to the ED if bleeding continued to worsen or she became concerned. She denies current abdominal pain or cramping, vaginal discharge, concern for STDs, fever, vomiting, dysuria or hematuria. She is not anticoagulated, no history of bleeding dyscrasias. States she has changed her pad twice daily since the onset of bleeding. She is not on control. Related Data Home Medications ?Medication ?Instructions ?Recorded ?Confirmed ?Last Taken ?Type clonazepam 0.5 mg tablet 0.5 mg PO BID PRN anxiety 08/08/24 08/08/24 Unknown History Allergies Allergy/AdvReac Type Severity Reaction Status Date / Time No Known Allergies Allergy Verified 08/30/24 21:21 Review of Systems Review of Systems: All systems reviewed & are unremarkable except as noted in HPI and below PMFSH Past Medical History Medical History Asthma exercise induced Anxiety Surgical History Surgical History History of breast augmentation Family History Family History Mother Breast cancer Social History Social History Smoking packs per day: 0.5 Smoking cigarettes per day: 10.0 Years smoked: 6 Smoking pack-years: 3.00 Smoking status: Former smoker Tobacco type: cigarettes Smoking end date: 10/22/23 Additional smoking assessment comments: smoked for about 6 years in and for about 3 months in 2023 Alcohol intake: current Drinks per week: 14 Alcohol use details: 2 glasses of wine a day Substance use: never Substance use type: does not use Living arrangements: with family Additional living arrangements comments: CHILDREN Gender identity (if verbalized by the patient): Female Sexual Orientation (if Verbalized by the Patient): Straight or Heterosexual Spiritual care concerns: No Exam Narrative: GENERAL: Well-appearing, well-nourished, and in no acute distress. HEAD: Normocephalic, atraumatic. EYES: EOMI. ENT: Nares clear, no rhinorrhea or epistaxis. Mucous membranes moist. NECK: Supple. CHEST: Clear to auscultation. No respiratory distress. HEART: Regular rate and rhythm. No murmur heard. Normal peripheral pulses. ABDOMEN: Soft, nontender, nondistended, normal active bowel sounds. No rebound, guarding or rigidity. No CVA tenderness : Chaperoned by DOLORES Alvarez: Normal external genitalia, mild amount of blood in the vaginal vault with small clots, evidence of cauterized tissue to the cervix with multiple overlying clots. No discharge or purulent drainage. No adnexal masses or tenderness, no CMT EXTREMITIES: Normal range of motion. No edema. SKIN: Warm, dry, no rash. NEURO: No focal deficits. Alert and oriented x3 Course Vital Signs Vital signs: Vital Signs Temperature 97.7 F 08/30/24 21: Pulse Rate 90 08/30/24 21:29 Respiratory Rate 14 08/30/24 21:29 Blood Pressure 117/85 08/30/24 21:29 Pulse Oximetry 98 08/30/24 21:29 Oxygen Delivery Room Air 08/30/24 21:29 Temperature 97.7 F 08/30/24 21:29 Pulse Rate 90 08/30/24 21:29 Respiratory Rate 14 08/30/24 21:29 Blood Pressure 117/85 08/30/24 21:29 Pulse Oximetry 98 08/30/24 21:29 Oxygen Delivery Room Air 08/30/24 21:29 MDM - Female Genitourinary MDM Narrative Medical decision making narrative: 44-year-old female presents to the emergency department for abnormal uterine bleeding. Patient underwent a LEEP procedure on 08/[address] Mattson. Has had vaginal bleeding and has had to change her pad twice daily. She presents today for persistent bleeding and passage of clots. Triage vitals are stable. Patient is afebrile and nontoxic appearing. Abdomen is soft and nontender. Pelvic exam performed which shows a mild amount of blood in the vaginal vault and small clots. CBC without leukocytosis or anemia with a stable hemoglobin of 12.4 hematocrit 37.4. Chemistries show bicarb of 21 with anion gap of 16 which is likely due to dehydration. Renal function within normal limits. UA with small amount of blood, no UTI. negative. Coags normal. Patient updated on results. She politely declined an IV and is tolerating p.o. intake. Encouraged increased hydration orally. I did discuss the case with her OBGYN, Dr. Mattson, who agrees the patient is stable for discharge home and can follow up with him on an outpatient basis. This was relayed to the patient I discussed strict ED return precautions. She is agreeable with the plan verbalized understanding. Discharged in stable condition. Lab Data 08/30/24 22:01 08/30/24 22:01 Labs: Lab Results 08/30/24 08/30/24 08/30/24 Range/Units 22:01 22:06 22:07 WBC 5.8 (4.5-10.0) K/mm3 RBC 3.94 L (4.2-5.4) M/mm3 Hgb 12.4 (12.0-15.0) g/dL Hct 37.4 (37.0-47.0) % MCV 94.9 (80-100) fl MCH 31.5 (26-34) pg MCHC 33.2 (32-36) g/dl RDW 11.9 (11.5-14.5) % Plt Count 319 (150-375) k/mm3 MPV 8.4 (7.4-10.4) fl Immature Gran % (Auto) 0.2 (0-0.5) % Neut % (Auto) 52.9 (45.5-73.1) % Lymph % (Auto) 33.0 (18.3-44.2) % [place] % (Auto) 9.2 H (2.6-8.5) % Eos % (Auto) 3.8 (0-4.4) % Baso % (Auto) 0.9 (0.2-1.2) % Lymph # (Auto) 1.90 (0.9-3.2) K/mm3 [place] # (Auto) 0.5 (0.1-0.6) K/mm3 Eos # (Auto) 0.2 (0-0.3) K/mm3 Baso # (Auto) 0.1 (0.0-0.1) K/mm3 Abs Immat Gran (auto) 0.01 (0.00-0.031) K/mm3 Absolute Neuts (auto) 3.1 (1.3-6.7) K/mm3 Absolute Nucleated RBC 0.000 (0.0-0.012) K/mm3 Nucleated RBC % 0.0 (0.0-0.2) % PT 13.7 (11.1-14.7) Seconds INR 1.0 APTT 31.5 (22.3-36.8) Seconds Sodium 142 (137-145) mmol/L Potassium 3.6 (3.4-5.0) mmol/L Chloride 105 (98-107) mmol/L Carbon Dioxide 21 L (22-30) mmol/L Anion Gap 16 H (4-12) mmol/L BUN 8 D (7-17) mg/dL Creatinine 0.53 L (0.7-1.0) mg/dL Estim Creat Clear Calc 102 ml/min Estimated GFR > 60 (59 - ) Glucose 101 (65-110) mg/dL Calcium 9.3 (8.4-10.2) mg/dL Total Bilirubin 0.3 (0.2-1.3) mg/dL AST 27 (14-36) U/L ALT 16 (6-35) U/L Alkaline Phosphatase 48 (38-126) U/L Total Protein 8.0 (6.3-8.2) g/dL Albumin 4.8 (3.5-5.1) g/dL Urine Color Yellow (Yellow) Urine Appearance Clear (Clear) Urine pH 5.5 (5.0-9.0) Ur Specific [place] 1.009 (1.001-1.035) Urine Protein Negative (Negative) mg/dL Urine Glucose (UA) Negative (Negative) mg/dL Urine Ketones Negative (Negative) mg/dL Ur Blood (Man) 1+ H (Negative) Urine Nitrate Negative (Negative) Urine Bilirubin Negative (Negative) Urine Urobilinogen 0.2 (<2.0) mg/dL Leukocyte Esterase Rfl Negative (Negative) SWAPNIL/UL Urine RBC 0-2 (0-2) /hpf Urine WBC 0-5 (0-3) /hpf Ur Squamous Epith Cells None seen (Few) /hpf Urine Bacteria None seen /hpf Urine Casts 0-2 Urine Test Negative Discharge Plan Discharge Clinical Impression: Abnormal uterine bleeding Patient Disposition: Home Condition: Stable Instructions: Antibiotic Form, Abnormal (Dysfunctional) Uterine Bleeding (ED) Additional Instructions: You were evaluated in the emergency department for abnormal uterine bleeding. Your lab work here is reassuring. Your exam shows a mild amount of blood in the vaginal vault but no active hemorrhaging. Please follow-up closely with your OBGYN. Return to the emergency department if you develop fever, abdominal pain, you are saturating through 1 pad or tampon an hour, or other concerning symptoms. Patient Language: Swedish Prescriptions: No Action clonazepam 0.5 mg tablet 0.5 mg PO BID PRN (Reason: anxiety) Follow-up/Referrals: Hawk Mattson MD [Physician] - Shawna,Katharine Gray APRN [Primary Care Provider] -
[2024-08-30 22:12] LABS: Basophils Absolute Auto 0.1 K/mm3 (0.0-0.1); Basophils Percent Auto 0.9 % (0.2-1.2); Eosinophils Absolute Auto 0.2 K/mm3 (0-0.3); Eosinophils Percent Auto 3.8 % (0-4.4); Hematocrit 37.4 % (37.0-47.0); Hemoglobin 12.4 g/dL (12.0-15.0); Immature Granulocyte Absolute 0.01 K/mm3 (0.00-0.031); Immature Granulocyte Percent A 0.2 % (0-0.5); Mean Corpuscular HGB Conc 33.2 g/dl (32-36); Mean Corpuscular Hemoglobin 31.5 pg (26-34); Mean Corpuscular Volume 94.9 fl (80-100); Mean Platelet Volume 8.4 fl (7.4-10.4); Monocytes Absolute Auto 0.5 K/mm3 (0.1-0.6); Monocytes Percent Auto 9.2 % (2.6-8.5); Neutrophils Absolute Auto 3.1 K/mm3 (1.3-6.7); Neutrophils Percent Auto 52.9 % (45.5-73.1); Platelet Count Result 319 k/mm3 (150-375); Red Blood Count 3.94 M/mm3 (4.2-5.4); Red Cell Distribution Width 11.9 % (11.5-14.5); White Blood Count 5.8 K/mm3 (4.5-10.0)
--- NOTE | 2024-08-30 22:12 | PC.NURSE ---
pt ambulatory with steady gait to restroom. Pt provided ua to board certified orthodontist. Labs collected by board certified orthodontist enid. No distress noted.
[2024-08-30 22:17] LABS: Alanine Aminotransferase 16 U/L (6-35); Albumin Level 4.8 g/dL (3.5-5.1); Alkaline Phosphatase 48 U/L (38-126); Anion Gap 16 mmol/L (4-12); Aspartate Amino Transferase 27 U/L (14-36); Bilirubin,Total 0.3 mg/dL (0.2-1.3); Blood Urea Nitrogen 8 mg/dL (7-17); Calcium 9.3 mg/dL (8.4-10.2); Carbon Dioxide 21 mmol/L (22-30); Chloride 105 mmol/L (98-107); Estimated CRCL calculation 102 ml/min; Estimated Glomerular Filt Rate > 60; Glucose 101 mg/dL (65-110); Potassium 3.6 mmol/L (3.4-5.0); Sodium 142 mmol/L (137-145)
[2024-08-30 22:24] LABS: Prothrombin Time 13.7 Seconds (11.1-14.7)
[2024-08-30 22:25] LABS: Partial Thromboplastin Time 31.5 Seconds (22.3-36.8)
[2024-08-30 22:29] LABS: Add Urine Microscopic? YES; Appearance Urine Clear (Clear); Bacteria Urine None Seen /hpf; Bilirubin Urine Negative (Negative); Blood Urine 1+ (Negative); Color Urine Yellow (Yellow); Glucose Urine UA Negative (Negative); Ketones Urine Negative (Negative); Leukocyte Esterase Ur Negative LEU/UL (Negative); Nitrate Urine Negative (Negative); Non Pathogenic Casts 0-2; Protein Urine Negative (Negative); RBC Urine 0-2 /hpf (0-2); Specific Grav Ur 1.009 (1.001-1.035); Squamous Epithelial Cell Urine None Seen /hpf (Few); Urobilinogen Urine 0.2 mg/dL (<2.0); WBC Urine 0-5 /hpf (0-3); pH Urine 5.5 (5.0-9.0)
--- NOTE | 2024-08-30 22:42 | PC.NURSE ---
lab notified of urine test to add on.
[2024-08-30 22:52] LABS: Pregnancy On Board Control Positive; Urine Pregnancy Test Negative
--- NOTE | 2024-08-30 23:15 | PC.NURSE ---
this pt left prior to receiving d/c paperwork. confirmed ambulation with out from exit by oil burner mechanic. no distress noted. no last set of vs obtained.
== END 2024-08-30 23:18 | disposition home or self-care (01) ==
PROVIDERS: Emergency Provider Physician Assistant; PCP Nurse Practitioner Family
DX: N93.9 Abnormal uterine and vaginal bleeding, unspecified (principal); J45.990 Exercise induced bronchospasm; F41.9 Anxiety disorder, unspecified; Z87.891 Personal history of nicotine dependence
CPT/HCPCS: 36415; 80053; 81001; 81025; 85025; 85610; 85730; 99284